=== PATIENT | male | born 1970 | race Caucasian/White ===

== ENCOUNTER 2016-06-10 10:26 | Inpatient (IN) | payer OTHER ==
[2016-06-10 10:45] VITALS: BMI 28.0
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
[2016-06-10] MEDS ORDERED: diphenhydrAMINE HCL 50 MG CAPSULE PO PRN (13:08)
[2016-06-10] MEDS ORDERED: LOPERAMIDE HCL 2 MG CAPSULE PO PRN (13:08)
[2016-06-10] MEDS ORDERED: ACETAMINOPHEN 325 MG TABLET (FP) PO PRN (13:08)
[2016-06-10] MEDS ORDERED: MENTHOL/PHENOL 1 EACH UD MM PRN (13:08)
[2016-06-10] MEDS ORDERED: MAGNESIUM HYDROX 2400MG/30ML ORAL SUSPENSION 30 ML CUP PO PRN (13:08)
[2016-06-10] MEDS ORDERED: MAGNESIUM CITRATE 300 ML BOTTLE PO PRN (13:08)
[2016-06-10] MEDS ORDERED: guaiFENesin/D-METHORPHAN HB 10 ML UNIT-DOSE CUPS PO PRN (13:08)
[2016-06-10] MEDS ORDERED: P-EPHED 60MG/TRIPROLIDI 2.5MG TABLET PO PRN (13:08)
[2016-06-10] MEDS ORDERED: RANITIDINE HCL 150 MG TABLET (FP) PO PRN (13:13)
[2016-06-10] MEDS ORDERED: DOCUSATE SODIUM 100 MG CAPSULE (FP) PO PRN (13:13)
[2016-06-10] MEDS ORDERED: ALBUTEROL SO4 2.5/IPRATROPIUM 0.5 INH SOL 3 ML VIAL.NEB. NEB PRN (13:27)
[2016-06-10] MEDS ORDERED: diazePAM 5 MG TABLET PO ONE (14:02)
[2016-06-10] MEDS ORDERED: METHADONE HCL 10 MG TABLET (FOR DETOX USE ONLY) PO ONE ×2 (14:05→23:00)
[2016-06-10] MEDS: diazePAM 5 MG TABLET PO SCH ×2 (14:24→22:45)
[2016-06-10] MEDS: NICOTINE 21 MG/24 HOURS TOPICAL PATCH TD SCH (14:24)
--- NOTE | 2016-06-10 15:57 | EKG ---
Test Reason : Blood Pressure : / mmHG Vent. Rate : 066 BPM Atrial Rate : 066 BPM P-R Int : 146 ms QRS Dur : 086 ms QT Int : 430 ms P-R-T Axes : 039 017 014 degrees QTc Int : 450 ms NORMAL SINUS RHYTHM NORMAL ECG NO PREVIOUS ECGS AVAILABLE Confirmed by TIFFANY SANTOS MD ([id number]) on 06/10/2016 3:57:03 PM Referred By: Darrell Ventura Confirmed By:TIFFANY SANTOS MD
[2016-06-10 18:44] LABS: URINE APPEARANCE CLEAR; URINE BILIRUBIN NEGATIVE (NEGATIVE); URINE BLOOD NEGATIVE (NEGATIVE); URINE COLOR YELLOW; URINE GLUCOSE (UA) NEGATIVE (NEGATIVE); URINE KETONE NEGATIVE (NEGATIVE); URINE NITRITE NEGATIVE (NEGATIVE); URINE PROTEIN NEGATIVE (NEGATIVE); URINE UROBILINOGEN 2.0 E.U/dl E.U./dl (0.2-1.0)
[2016-06-10 18:47] LABS: URINE LEUK ESTERASE TRACE (NEGATIVE)
[2016-06-10 19:05] LABS: URINE MUCUS RARE; URINE RBC <1 /hpf (0-3); URINE WBC <1 /hpf (3-5)
[2016-06-10] MEDS: ALBUTEROL SO4 2.5/IPRATROPIUM 0.5 INH SOL 3 ML VIAL.NEB. NEB SCH ×2 (20:14→22:47)
[2016-06-10] MEDS: diazePAM 5 MG TABLET PO PRN (20:17)
[2016-06-10] MEDS: MAG HYDROX/AL HYDROX/SIMETH 30 ML UNIT-DOSE CUP PO PRN (20:18)
[2016-06-10] MEDS: NICOTINE POLACRILEX 4 MG GUM BUC PRN (21:14)
[2016-06-10] MEDS: THIAMINE HCL 100 MG TABLET (FP) PO SCH (22:45)
[2016-06-10] MEDS: RANITIDINE HCL 150 MG TABLET (FP) PO SCH (22:45)
[2016-06-10] MEDS: DOCUSATE SODIUM 100 MG CAPSULE (FP) PO SCH (22:46)
[2016-06-10] MEDS: MONTELUKAST NA 10 MG TABLET PO SCH (22:46)
[2016-06-11] MEDS ORDERED: METHADONE HCL 10 MG TABLET ONE (05:28)
[2016-06-11] MEDS ORDERED: METHADONE HCL 40 MG DISPERSABLE TABLET ONE (05:29)
[2016-06-11] MEDS: METHADONE 80 MG, METHADONE 10 MG PO SCH (05:51)
[2016-06-11] MEDS: LEVOFLOXACIN 500 MG TABLET (FP) PO SCH (05:52)
[2016-06-11] MEDS: diazePAM 5 MG TABLET PO SCH ×3 (05:52→22:46)
[2016-06-11] MEDS: NICOTINE POLACRILEX 4 MG GUM BUC PRN ×2 (05:55→10:46)
[2016-06-11] MEDS ORDERED: LEVOFLOXACIN 500 MG TABLET (FP) PO SCH (06:00)
[2016-06-11] MEDS ORDERED: METHADONE HCL 10 MG TABLET PO SCH (06:00)
[2016-06-11 09:54] LABS: MCH 28.4 pg (25.7-33.7); MCHC 31.9 g/dl (32.0-35.9); MEAN CELL VOLUME 89.2 fl (80-96); MEAN PLT VOLUME 9.7 fl (7.5-11.1); PLATELET COUNT 181 K/MM3 (134-434); RDW 13.1 % (11.9-15.9); WHITE BLOOD COUNT 10.2 K/mm3 (4.0-10.0)
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
[2016-06-11] MEDS ORDERED: METHADONE HCL 10 MG TABLET (FOR DETOX USE ONLY) PO SCH (10:00)
[2016-06-11 10:21] LABS: ALBUMIN 3.9 g/dl (3.4-5.0); ANION GAP 9 (8-16); CALCIUM 8.7 mg/dL (8.5-10.1); CO2 28 mmol/L (21-32); CREATININE 0.7 mg/dL (0.7-1.3); GLUCOSE,RANDOM 92 mg/dL (74-106); SGOT/AST 31 U/L (15-37); SGPT/ALT 31 U/L (12-78)
[2016-06-11 10:22] LABS: ALK PHOS 105 U/L (45-117); BILIRUBIN,TOTAL 0.5 mg/dL (0.2-1.0); TOT PROT 7.8 g/dl (6.4-8.2)
[2016-06-11] MEDS: DOCUSATE SODIUM 100 MG CAPSULE (FP) PO SCH ×2 (10:45→22:46)
[2016-06-11] MEDS: PRENATAL VITAMINS W/ FOLIC ACID TABLET (FP) PO SCH (10:45)
[2016-06-11] MEDS: RANITIDINE HCL 150 MG TABLET (FP) PO SCH ×2 (10:45→22:46)
[2016-06-11] MEDS: NICOTINE 21 MG/24 HOURS TOPICAL PATCH TD SCH (10:46)
[2016-06-11] MEDS: ALBUTEROL SO4 2.5/IPRATROPIUM 0.5 INH SOL 3 ML VIAL.NEB. NEB SCH ×3 (10:46→22:48)
[2016-06-11] MEDS: SOFOSBUVIR PO SCH (10:46)
[2016-06-11] MEDS: [UNRECOGNIZED DRUG - OTHER] PO SCH (10:46)
[2016-06-11] MEDS: ALBUTEROL SO4 6.7 GM HFA INHALER IH PRN ×3 (11:10→21:39)
[2016-06-11] MEDS: MAG HYDROX/AL HYDROX/SIMETH 30 ML UNIT-DOSE CUP PO PRN (11:11)
--- NOTE | 2016-06-11 12:09 | PN ---
[facility] CIWA - CIWA Score Nausea/Vomitin-No Nausea/No Vomiting Muscle Tremors: 4-Moderate,w/Arms Extend Anxiety: 4-Mod. Anxious/Guarded Agitation: 4-Moderately Restless Paroxysmal Sweats: 1-Minimal Palms Moist Orientation: 0-Oriented Tacttile Disturbances: 3-Moderate Itch/Numb/Burn Auditory Disturbances: 0-None Visual Disturbances: 0-None Headache: 0-None Present CIWA-Ar Total Score: 16 BHS Progress Note (SOAP) Subjective: ANXIETY,IRRITABILITY,TREMORS,SWEATS. Objective: 06/11/16 12:08 Vital Signs Temperature 97.7 F 06/11/16 09:01 Pulse Rate 67 06/11/16 09:01 Respiratory Rate 18 06/11/16 09:01 Blood Pressure 119/77 06/11/16 09:01 O2 Sat by Pulse Oximetry (%) Laboratory Last Values WBC 10.2 K/mm3 (4.0-10.0) H 06/11/16 06:20 RBC 4.37 M/mm3 (4.00-5.60) 06/11/16 06:20 Hgb 12.4 GM/dL (11.7-16.9) 06/11/16 06:20 Hct 39.0 % (35.4-49) 06/11/16 06:20 MCV 89.2 fl (80-96) 06/11/16 06:20 MCHC 31.9 g/dl (32.0-35.9) L 06/11/16 06:20 RDW 13.1 % (11.9-15.9) 06/11/16 06:20 Plt Count 181 K/MM3 (134-434) 06/11/16 06:20 MPV 9.7 fl (7.5-11.1) 06/11/16 06:20 Sodium 142 mmol/L (136-145) 06/11/16 06:20 Potassium 3.8 mmol/L (3.5-5.1) 06/11/16 06:20 Chloride 105 mmol/L (98-107) 06/11/16 06:20 Carbon Dioxide 28 mmol/L (21-32) 06/11/16 06:20 Anion Gap 9 (8-16) 06/11/16 06:20 BUN 9 mg/dL (7-18) 06/11/16 06:20 Creatinine 0.7 mg/dL (0.7-1.3) 06/11/16 06:20 Creat Clearance w eGFR > 60 (>60) 06/11/16 06:20 Random Glucose 92 mg/dL (74-106) 06/11/16 06:20 Calcium 8.7 mg/dL (8.5-10.1) 06/11/16 06:20 Total Bilirubin 0.5 mg/dL (0.2-1.0) 06/11/16 06:20 AST 31 U/L (15-37) 06/11/16 06:20 ALT 31 U/L (12-78) 06/11/16 06:20 Alkaline Phosphatase 105 U/L (45-117) 06/11/16 06:20 Total Protein 7.8 g/dl (6.4-8.2) 06/11/16 06:20 Albumin 3.9 g/dl (3.4-5.0) 06/11/16 06:20 Urine Color Yellow 06/10/16 13:00 Urine Appearance Clear 06/10/16 13:00 Urine pH 6.0 (5.0-8.0) 06/10/16 13:00 Ur Specific [place] 1.018 (1.001-1.035) 06/10/16 13:00 Urine Protein Negative (NEGATIVE) 06/10/16 13:00 Urine Glucose (UA) Negative (NEGATIVE) 06/10/16 13:00 Urine Ketones Negative (NEGATIVE) 06/10/16 13:00 Urine Blood Negative (NEGATIVE) 06/10/16 13:00 Urine Nitrite Negative (NEGATIVE) 06/10/16 13:00 Urine Bilirubin Negative (NEGATIVE) 06/10/16 13:00 Urine Urobilinogen 2.0 e.u/dl E.U./dl (0.2-1.0) 06/10/16 13:00 Ur Leukocyte Esterase Trace (NEGATIVE) H 06/10/16 13:00 Urine RBC <1 /hpf (0-3) 06/10/16 13:00 Urine WBC <1 /hpf (3-5) 06/10/16 13:00 Ur Epithelial Cells Rare /hpf (FEW) 06/10/16 13:00 Urine Mucus Rare 06/10/16 13:00 RPR Titer Nonreactive (NONREACTIVE) 06/11/16 06:20 LAB NOTED Assessment: 06/11/16 12:09 WITHDRAWAL SX Plan: CONTINUE DETOX REPEAT UA TODAY
[2016-06-11 15:23] LABS: URINE APPEARANCE CLEAR; URINE BILIRUBIN NEGATIVE (NEGATIVE); URINE BLOOD NEGATIVE (NEGATIVE); URINE COLOR LTYELLOW; URINE GLUCOSE (UA) NEGATIVE (NEGATIVE); URINE KETONE NEGATIVE (NEGATIVE); URINE LEUK ESTERASE NEGATIVE (NEGATIVE); URINE NITRITE NEGATIVE (NEGATIVE); URINE PROTEIN NEGATIVE (NEGATIVE); URINE UROBILINOGEN NEGATIVE E.U./dl (0.2-1.0)
[2016-06-11 15:33] LABS: SICKLE CELL SCREEN NEGATIVE (NEGATIVE)
[2016-06-11] MEDS: diazePAM 5 MG TABLET PO PRN (17:34)
[2016-06-11] MEDS: IBUPROFEN 400 MG TABLET (FP) PO PRN (20:11)
[2016-06-11] MEDS: THIAMINE HCL 100 MG TABLET (FP) PO SCH (22:45)
[2016-06-11] MEDS: MONTELUKAST NA 10 MG TABLET PO SCH (22:46)
[2016-06-11] MEDS: QUEtiapine FUMARATE 100 MG TABLET (FP) PO SCH (22:46)
[2016-06-12] MEDS ORDERED: METHADONE HCL 10 MG TABLET ONE (03:59)
[2016-06-12] MEDS ORDERED: METHADONE HCL 40 MG DISPERSABLE TABLET ONE (03:59)
[2016-06-12] MEDS: LEVOFLOXACIN 500 MG TABLET (FP) PO SCH (06:19)
[2016-06-12] MEDS: METHADONE 80 MG, METHADONE 10 MG PO SCH (06:19)
[2016-06-12] MEDS: diazePAM 5 MG TABLET PO PRN ×2 (06:23→18:03)
[2016-06-12] MEDS: NICOTINE POLACRILEX 4 MG GUM BUC PRN (09:18)
--- NOTE | 2016-06-12 09:57 | PN ---
[facility] CIWA - CIWA Score Nausea/Vomitin-No Nausea/No Vomiting Muscle Tremors: 4-Moderate,w/Arms Extend Anxiety: 4-Mod. Anxious/Guarded Agitation: 4-Moderately Restless Paroxysmal Sweats: 3 Orientation: 0-Oriented Tacttile Disturbances: 0-None Auditory Disturbances: 0-None Visual Disturbances: 0-None Headache: 0-None Present CIWA-Ar Total Score: 15 BHS Progress Note (SOAP) Subjective: Anxiety,tremors,sweating,interrupted sleep,restless Objective: 06/12/16 09:56 Vital Signs - 8 hr 06/12/16 06/12/16 06/12/16 04:00 06:44 09:30 Temperature 97.5 F L 97.2 F L Pulse Rate 53 L 74 Respiratory 18 18 18 Rate Blood Pressure 114/82 134/79 Laboratory Tests 06/10/16 06/11/16 06/11/16 13:00 06:20 06:20 WBC 10.2 H RBC 4.37 Hgb 12.4 Hct 39.0 MCV 89.2 MCHC 31.9 L RDW 13.1 Plt Count 181 MPV 9.7 Sickle Cell Screen Negative Sodium 142 Potassium 3.8 Chloride 105 Carbon Dioxide 28 Anion Gap 9 BUN 9 Creatinine 0.7 Creat Clearance w eGFR > 60 Random Glucose 92 Calcium 8.7 Total Bilirubin 0.5 AST 31 ALT 31 Alkaline Phosphatase 105 Total Protein 7.8 Albumin 3.9 Urine Color Yellow Urine Appearance Clear Urine pH 6.0 Ur Specific [place] 1.018 Urine Protein Negative Urine Glucose (UA) Negative Urine Ketones Negative Urine Blood Negative Urine Nitrite Negative Urine Bilirubin Negative Urine Urobilinogen 2.0 e.u/dl Ur Leukocyte Esterase Trace H Urine RBC <1 Urine WBC <1 Ur Epithelial Cells Rare Urine Mucus Rare RPR Titer 06/11/16 06/11/16 06:20 10:30 WBC RBC Hgb Hct MCV MCHC RDW Plt Count MPV Sickle Cell Screen Sodium Potassium Chloride Carbon Dioxide Anion Gap BUN Creatinine Creat Clearance w eGFR Random Glucose Calcium Total Bilirubin AST ALT Alkaline Phosphatase Total Protein Albumin Urine Color Ltyellow Urine Appearance Clear Urine pH 5.0 Ur Specific [place] 1.016 Urine Protein Negative Urine Glucose (UA) Negative Urine Ketones Negative Urine Blood Negative Urine Nitrite Negative Urine Bilirubin Negative Urine Urobilinogen Negative Ur Leukocyte Esterase Negative Urine RBC Urine WBC Ur Epithelial Cells Urine Mucus RPR Titer Nonreactive labs noted, Assessment: 06/12/16 09:57 Withdrawal sx. Plan: Continue detox
[2016-06-12] MEDS ORDERED: METHADONE HCL 5 MG TABLET (FOR DETOX USE ONLY) PO SCH (10:00)
[2016-06-12] MEDS: PRENATAL VITAMINS W/ FOLIC ACID TABLET (FP) PO SCH (10:53)
[2016-06-12] MEDS: diazePAM 5 MG TABLET PO SCH ×2 (10:53→22:00)
[2016-06-12] MEDS: SOFOSBUVIR PO SCH (10:53)
[2016-06-12] MEDS: RANITIDINE HCL 150 MG TABLET (FP) PO SCH ×2 (10:53→22:22)
[2016-06-12] MEDS: DOCUSATE SODIUM 100 MG CAPSULE (FP) PO SCH ×2 (10:53→22:22)
[2016-06-12] MEDS: PARoxetine HCL 10 MG TABLET (FP) PO SCH (10:53)
[2016-06-12] MEDS: [UNRECOGNIZED DRUG - OTHER] PO SCH (10:54)
[2016-06-12] MEDS: ALBUTEROL SO4 2.5/IPRATROPIUM 0.5 INH SOL 3 ML VIAL.NEB. NEB SCH ×4 (10:54→22:20)
[2016-06-12] MEDS: NICOTINE 21 MG/24 HOURS TOPICAL PATCH TD SCH (10:55)
[2016-06-12] MEDS: ALBUTEROL SO4 6.7 GM HFA INHALER IH PRN (18:04)
[2016-06-12] MEDS: THIAMINE HCL 100 MG TABLET (FP) PO SCH (22:21)
[2016-06-12] MEDS: QUEtiapine FUMARATE 100 MG TABLET (FP) PO SCH (22:22)
[2016-06-12] MEDS: MONTELUKAST NA 10 MG TABLET PO SCH (22:22)
[2016-06-13] MEDS ORDERED: METHADONE HCL 10 MG TABLET ONE (03:03)
[2016-06-13] MEDS ORDERED: METHADONE HCL 40 MG DISPERSABLE TABLET ONE (03:04)
[2016-06-13] MEDS: METHADONE 80 MG, METHADONE 10 MG PO SCH (06:12)
[2016-06-13] MEDS: diazePAM 5 MG TABLET PO PRN (06:16)
[2016-06-13] MEDS: SOFOSBUVIR PO SCH (10:46)
[2016-06-13] MEDS: PRENATAL VITAMINS W/ FOLIC ACID TABLET (FP) PO SCH (10:46)
[2016-06-13] MEDS: PARoxetine HCL 10 MG TABLET (FP) PO SCH (10:46)
[2016-06-13] MEDS: diazePAM 5 MG TABLET PO SCH ×2 (10:46→22:40)
[2016-06-13] MEDS: [UNRECOGNIZED DRUG - OTHER] PO SCH (10:46)
[2016-06-13] MEDS: RANITIDINE HCL 150 MG TABLET (FP) PO SCH ×2 (10:46→22:40)
[2016-06-13] MEDS: NICOTINE 21 MG/24 HOURS TOPICAL PATCH TD SCH (10:46)
[2016-06-13] MEDS: DOCUSATE SODIUM 100 MG CAPSULE (FP) PO SCH ×2 (10:46→22:40)
[2016-06-13 14:02] VITALS: TEMP 97.8
--- NOTE | 2016-06-13 15:03 | PN ---
S Progress Note (SOAP) Subjective: Tremors, Sweating, Nausea, Diarrhea, Back Ache. Objective: PT. A & O X 2 (DISORIENTED ABOUT DAY / DATE). PT. OBSERVED AMBULATING ON UNIT. 06/13/16 15:00 Vital Signs Temperature 97.8 F 06/13/16 14:01 Pulse Rate 82 06/13/16 14:01 Respiratory Rate 18 06/13/16 14:01 Blood Pressure 110/73 06/13/16 14:01 O2 Sat by Pulse Oximetry (%) Laboratory Last Values WBC 10.2 K/mm3 (4.0-10.0) H 06/11/16 06:20 RBC 4.37 M/mm3 (4.00-5.60) 06/11/16 06:20 Hgb 12.4 GM/dL (11.7-16.9) 06/11/16 06:20 Hct 39.0 % (35.4-49) 06/11/16 06:20 MCV 89.2 fl (80-96) 06/11/16 06:20 MCHC 31.9 g/dl (32.0-35.9) L 06/11/16 06:20 RDW 13.1 % (11.9-15.9) 06/11/16 06:20 Plt Count 181 K/MM3 (134-434) 06/11/16 06:20 MPV 9.7 fl (7.5-11.1) 06/11/16 06:20 Sickle Cell Screen Negative (NEGATIVE) 06/11/16 06:20 Sodium 142 mmol/L (136-145) 06/11/16 06:20 Potassium 3.8 mmol/L (3.5-5.1) 06/11/16 06:20 Chloride 105 mmol/L (98-107) 06/11/16 06:20 Carbon Dioxide 28 mmol/L (21-32) 06/11/16 06:20 Anion Gap 9 (8-16) 06/11/16 06:20 BUN 9 mg/dL (7-18) 06/11/16 06:20 Creatinine 0.7 mg/dL (0.7-1.3) 06/11/16 06:20 Creat Clearance w eGFR > 60 (>60) 06/11/16 06:20 Random Glucose 92 mg/dL (74-106) 06/11/16 06:20 Calcium 8.7 mg/dL (8.5-10.1) 06/11/16 06:20 Total Bilirubin 0.5 mg/dL (0.2-1.0) 06/11/16 06:20 AST 31 U/L (15-37) 06/11/16 06:20 ALT 31 U/L (12-78) 06/11/16 06:20 Alkaline Phosphatase 105 U/L (45-117) 06/11/16 06:20 Total Protein 7.8 g/dl (6.4-8.2) 06/11/16 06:20 Albumin 3.9 g/dl (3.4-5.0) 06/11/16 06:20 Urine Color Ltyellow 06/11/16 10:30 Urine Appearance Clear 06/11/16 10:30 Urine pH 5.0 (5.0-8.0) 06/11/16 10:30 Ur Specific [place] 1.016 (1.001-1.035) 06/11/16 10:30 Urine Protein Negative (NEGATIVE) 06/11/16 10:30 Urine Glucose (UA) Negative (NEGATIVE) 06/11/16 10:30 Urine Ketones Negative (NEGATIVE) 06/11/16 10:30 Urine Blood Negative (NEGATIVE) 06/11/16 10:30 Urine Nitrite Negative (NEGATIVE) 06/11/16 10:30 Urine Bilirubin Negative (NEGATIVE) 06/11/16 10:30 Urine Urobilinogen Negative E.U./dl (0.2-1.0) 06/11/16 10:30 Ur Leukocyte Esterase Negative (NEGATIVE) 06/11/16 10:30 Urine RBC <1 /hpf (0-3) 06/10/16 13:00 Urine WBC <1 /hpf (3-5) 06/10/16 13:00 Ur Epithelial Cells Rare /hpf (FEW) 06/10/16 13:00 Urine Mucus Rare 06/10/16 13:00 RPR Titer Nonreactive (NONREACTIVE) 06/11/16 06:20 LABS NOTED. Assessment: 06/13/16 15:01 WITHDRAWAL SYMPTOMS. Plan: CONTINUE DETOX. ADVISED PATIENT TO FOLLOW-UP WITH [facility] / REHAB MEDICAL PROVIDER AFTER DISCHARGE FROM DETOX FOR GENERAL MEDICAL ASSESSMENT AND FOR ANY ABNORMAL ADMISSION LAB VALUES.
[2016-06-13] MEDS: MAG HYDROX/AL HYDROX/SIMETH 30 ML UNIT-DOSE CUP PO PRN (21:17)
[2016-06-13 22:28] VITALS: BP 111/79; PULSE 74
[2016-06-13] MEDS: MONTELUKAST NA 10 MG TABLET PO SCH (22:40)
[2016-06-13] MEDS: QUEtiapine FUMARATE 100 MG TABLET (FP) PO SCH (22:40)
[2016-06-13] MEDS: THIAMINE HCL 100 MG TABLET (FP) PO SCH (22:43)
[2016-06-13] MEDS: ALBUTEROL SO4 2.5/IPRATROPIUM 0.5 INH SOL 3 ML VIAL.NEB. NEB SCH (22:43)
[2016-06-14] MEDS ORDERED: METHADONE HCL 10 MG TABLET ONE (04:40)
[2016-06-14] MEDS ORDERED: METHADONE HCL 40 MG DISPERSABLE TABLET ONE (04:41)
[2016-06-14] MEDS: METHADONE 80 MG, METHADONE 10 MG PO SCH (05:26)
[2016-06-14] MEDS: IBUPROFEN 400 MG TABLET (FP) PO PRN (05:28)
[2016-06-14] MEDS ORDERED: diazePAM 5 MG TABLET PO SCH (10:00)
[2016-06-14] MEDS ORDERED: METHADONE HCL 10 MG TABLET (FOR DETOX USE ONLY) PO SCH (10:00)
--- NOTE | 2016-06-14 16:00 | DS ---
[facility] Detox Discharge Summary Admission Date: 06/10/16 Discharge Date: 06/14/16 - History Present History: Alcohol Dependence, Cocaine Dependence, MMTP Additional Comments: ADVISED PATIENT TO FOLLOW-UP WITH [facility] / REHAB MEDICAL PROVIDER AFTER DISCHARGE FROM DETOX FOR GENERAL MEDICAL ASSESSMENT AND FOR ABNORMAL ADMISSION LAB VALUES. Pertinent Past History: Asthma,. Hep C, GERD, Depression. - Physical Exam Results Vital Signs: Vital Signs Temperature 97.8 F 06/13/16 22:27 Pulse Rate 74 06/13/16 22:27 Respiratory Rate 18 06/14/16 03:30 Blood Pressure 111/79 06/13/16 22:27 O2 Sat by Pulse Oximetry (%) Pertinent Admission Physical Exam Findings: WITHDRAWAL SYMPTOMS. Laboratory Last Values WBC 10.2 K/mm3 (4.0-10.0) H 06/11/16 06:20 RBC 4.37 M/mm3 (4.00-5.60) 06/11/16 06:20 Hgb 12.4 GM/dL (11.7-16.9) 06/11/16 06:20 Hct 39.0 % (35.4-49) 06/11/16 06:20 MCV 89.2 fl (80-96) 06/11/16 06:20 MCHC 31.9 g/dl (32.0-35.9) L 06/11/16 06:20 RDW 13.1 % (11.9-15.9) 06/11/16 06:20 Plt Count 181 K/MM3 (134-434) 06/11/16 06:20 MPV 9.7 fl (7.5-11.1) 06/11/16 06:20 Sickle Cell Screen Negative (NEGATIVE) 06/11/16 06:20 Sodium 142 mmol/L (136-145) 06/11/16 06:20 Potassium 3.8 mmol/L (3.5-5.1) 06/11/16 06:20 Chloride 105 mmol/L (98-107) 06/11/16 06:20 Carbon Dioxide 28 mmol/L (21-32) 06/11/16 06:20 Anion Gap 9 (8-16) 06/11/16 06:20 BUN 9 mg/dL (7-18) 06/11/16 06:20 Creatinine 0.7 mg/dL (0.7-1.3) 06/11/16 06:20 Creat Clearance w eGFR > 60 (>60) 06/11/16 06:20 Random Glucose 92 mg/dL (74-106) 06/11/16 06:20 Calcium 8.7 mg/dL (8.5-10.1) 06/11/16 06:20 Total Bilirubin 0.5 mg/dL (0.2-1.0) 06/11/16 06:20 AST 31 U/L (15-37) 06/11/16 06:20 ALT 31 U/L (12-78) 06/11/16 06:20 Alkaline Phosphatase 105 U/L (45-117) 06/11/16 06:20 Total Protein 7.8 g/dl (6.4-8.2) 06/11/16 06:20 Albumin 3.9 g/dl (3.4-5.0) 06/11/16 06:20 Urine Color Ltyellow 06/11/16 10:30 Urine Appearance Clear 06/11/16 10:30 Urine pH 5.0 (5.0-8.0) 06/11/16 10:30 Ur Specific [place] 1.016 (1.001-1.035) 06/11/16 10:30 Urine Protein Negative (NEGATIVE) 06/11/16 10:30 Urine Glucose (UA) Negative (NEGATIVE) 06/11/16 10:30 Urine Ketones Negative (NEGATIVE) 06/11/16 10:30 Urine Blood Negative (NEGATIVE) 06/11/16 10:30 Urine Nitrite Negative (NEGATIVE) 06/11/16 10:30 Urine Bilirubin Negative (NEGATIVE) 06/11/16 10:30 Urine Urobilinogen Negative E.U./dl (0.2-1.0) 06/11/16 10:30 Ur Leukocyte Esterase Negative (NEGATIVE) 06/11/16 10:30 Urine RBC <1 /hpf (0-3) 06/10/16 13:00 Urine WBC <1 /hpf (3-5) 06/10/16 13:00 Ur Epithelial Cells Rare /hpf (FEW) 06/10/16 13:00 Urine Mucus Rare 06/10/16 13:00 RPR Titer Nonreactive (NONREACTIVE) 06/11/16 06:20 LABS NOTED. - Treatment Hospital Course: Detox Protocol Followed, Detoxed Safely, Responded well, Discharged Condition Good Patient has Accepted a Rehab Referral to: NO - PATIENT TO ATTEND [facility]. - Medication Discharge Medications: Ambulatory Orders Albuterol Sulfate Inhaler - [Ventolin Hfa Inhaler -] 2 inh PO Q4H PRN 06/10/16 Daclatasvir Dihydrochloride [Daklinza] 60 mg PO DAILY 06/10/16 Docusate Sodium [Colace -] 100 mg PO BID PRN 06/10/16 Emtricitabine/Tenofovir [Truvada] 1 tab PO DAILY 06/10/16 Hydroxyzine HCl [Atarax -] 50 mg PO BID PRN 06/10/16 Levofloxacin [Levaquin -] 500 mg PO DAILY 06/10/16 Montelukast Na [Singulair -] 10 mg PO HS 06/10/16 Quetiapine Fumarate [Seroquel] 100 tab PO HS 06/10/16 Ranitidine HCl [Zantac] 300 mg PO DAILY PRN 06/10/16 Salmeterol/Fluticasone [Advair 500Mcg/50Mcg] 1 inh PO BID 06/10/16 Sofosbuvir [Sovaldi] 400 mg PO DAILY 06/10/16 Paroxetine HCl [Paxil -] 10 mg PO DAILY #30 tablet 06/11/16 Quetiapine Fumarate [Seroquel] 100 mg PO HS #30 tablet 06/11/16 - Diagnosis (1) Alcohol dependence with uncomplicated withdrawal Status: Acute (2) Cocaine dependence, uncomplicated Status: Acute (3) Nicotine dependence Status: Chronic Qualifiers: Nicotine product type: cigarettes Substance use status: uncomplicated Qualified Code(s): F17.210 - Nicotine dependence, cigarettes, uncomplicated (4) Opioid dependence on agonist therapy Status: Chronic (5) Substance induced mood disorder Status: Acute (6) History of hepatitis C virus infection Status: Chronic (7) Methadone maintenance therapy patient Status: Chronic - AMA Did Patient Leave Against Medical Advice: No
[2016-06-15] MEDS ORDERED: METHADONE HCL 5 MG TABLET (FOR DETOX USE ONLY) PO SCH (06:00)
== END 2016-06-14 06:13 | disposition home or self-care (01) | DRG 897 ==
LOC: YASAS 10:26 → Y3N 12:57
PROVIDERS: ADMIT Internal Medicine; ATTEND Internal Medicine
PROC: HZ2ZZZZ Detoxification Services for Substance Abuse Treatment (ICD-10-PCS; principal; 2016-06-14)
DX: F11.20 Opioid dependence, uncomplicated (principal); F10.230 Alcohol dependence with withdrawal, uncomplicated; F14.20 Cocaine dependence, uncomplicated; F17.210 Nicotine dependence, cigarettes, uncomplicated; F13.10 Sedative, hypnotic or anxiolytic abuse, uncomplicated; F15.10 Other stimulant abuse, uncomplicated; F19.24 Other psychoactive substance dependence with psychoactive substance-induced mood disorder; B18.2 Chronic viral hepatitis C
CPT/HCPCS: 36415; 80053; 81003; 81015; 85027; 85660; 86593; 93005; 93010; 94640

== ENCOUNTER 2016-08-12 12:46 | Inpatient (IN) | payer OTHER ==
[2016-08-12 15:08] VITALS: BMI 27.2
--- NOTE | 2016-08-12 15:55 | HP ---
CIWA Score - CIWA Score Nausea/Vomitin-No Nausea/No Vomiting Muscle Tremors: 4-Moderate,w/Arms Extend Anxiety: 3 Agitation: 4-Moderately Restless Paroxysmal Sweats: 3 Orientation: 0-Oriented Tacttile Disturbances: 0-None Auditory Disturbances: 0-None Visual Disturbances: 0-None Headache: 0-None Present CIWA-Ar Total Score: 14 Admission ROS [facility] - HPI Chief Complaint: I am here for detox and rehab. Allergies/Adverse Reactions: Allergies Allergy/AdvReac Type Severity Reaction Status Date / Time No Known Allergies Allergy Verified 08/12/16 15:11 History of Present Illness: pt is a 46yr old male with a history of xanax and alcohol dependence seeking detox for treatment. pt on a mmtp program received 90mg dose verified. Exam Limitations: No Limitations - Ebola screening Have you traveled outside of the country in the last 21 days: No Have you had contact with anyone from an Ebola affected area: No Have you been sick,other than usual withdrawal symptoms: No Do you have a fever: No - Review of Systems Constitutional: Chills, Diaphoresis, Loss of Appetite, Night Sweats, Changes in sleep EENT: reports: No Symptoms Reported Respiratory: reports: No Symptoms reported Cardiac: reports: No Symptoms Reported GI: reports: Constipated, Poor Appetite, Indigestion : reports: No Symptoms Reported Musculoskeletal: reports: No Symptoms Reported Integumentary: reports: Flushing, Sweating Neuro: reports: Tingling, Tremors Endocrine: reports: Excessive Sweating, Flushing, Intolerance to Cold, Intolerance to Heat Hematology: reports: No Symptoms Reported Psychiatric: reports: Judgement Intact, Orientated x3, Agitated, Anxious Other Systems: Reviewed and Negative Patient History - Patient Medical History Hx Anemia: No Hx Asthma: Yes Hx Chronic Obstructive Pulmonary Disease (COPD): No Hx Cancer: No Hx Cardiac Disorders: No Hx Congestive Heart Failure: No Hx Hypertension: No Hx Hypercholesterolemia: No Hx Pacemaker: No HX Cerebrovascular Accident: No Hx Seizures: No Hx Dementia: No Hx Diabetes: No Hx Gastrointestinal Disorders: Yes (acid reflux) Hx Liver Disease: No Hx Genitourinary Disorders: No Hx Sexually Transmitted Disorders: No Hx Renal Disease (ESRD): No Hx Thyroid Disease: No Hx Human Immunodeficiency Virus (HIV): No (NEGATIVE HX) Hx Hepatitis C: Yes (ON CURRENT TREATMENT WITH SOVALDI AND DAKLINZA DAILY ) Hx Depression: Yes Hx Suicide Attempt: Yes (cut left wrist in 2010) Hx Bipolar Disorder: Yes Hx Schizophrenia: No - Patient Surgical History Past Surgical History: Yes Hx Neurologic Surgery: No Hx Cataract Extraction: No Hx Cardiac Surgery: No Hx Lung Surgery: No Hx Breast Surgery: No Hx Breast Biopsy: No Hx Abdominal Surgery: No Hx Appendectomy: No Hx Cholecystectomy: No Hx Genitourinary Surgery: No Hx Section: No Hx Orthopedic Surgery: Yes (right hip replacement) Anesthesia Reaction: No - PPD History Previous Implant?: No Documented Results: Negative w/proof Implanted On Prior [facility] Admission?: Yes Date: 06/12/16 Results: 0 mm PPD to be Administered?: No - Smoking Cessation Smoking history: Current every day smoker Have you smoked in the past 12 months: Yes Aproximately how many cigarettes per day: 10 Hx Chewing Tobacco Use: No Initiated information on smoking cessation: Yes 'Breaking Loose' booklet given: 08/12/16 - Substance & Tx. History Hx Alcohol Use: Yes Hx Substance Use: Yes Substance Use Type: Alcohol, Cocaine, Tranquilizers Hx Substance Use Treatment: Yes - Substances Abused Cocaine Route: Injection Frequency: 1-2 times per week Amount used: $60 Age of first use: 23 Date of Last Use: 08/05/16 Alcohol-beer Route: Oral Frequency: Daily Amount used: 2-6 pks. Age of first use: 24 Date of Last Use: 08/12/16 Xanax Route: Oral Frequency: Daily Amount used: 8-10 mg. Age of first use: 41 Date of Last Use: 08/11/16 Family Disease History - Family Disease History Family History: Denies Admission Physical Exam S - Vital Signs Vital Signs: Vital Signs - 24 hr 08/12/16 15:05 Temperature 96.2 F L Pulse Rate 64 Respiratory 20 Rate Blood Pressure 127/54 - Physical General Appearance: Yes: Appropriately Dressed, Moderate Distress, Tremorous, Irritable, Sweating, Anxious HEENTM: Yes: Hearing grossly Normal Respiratory: Yes: Lungs Clear, Normal Breath Sounds, No Respiratory Distress Neck: Yes: No masses,lesions,Nodules Breast: Yes: Within Normal Limits Cardiology: Yes: Regular Rhythm, Regular Rate, S1, S2 Abdominal: Yes: Normal Bowel Sounds, Non Tender, Soft Genitourinary: Yes: Within Normal Limits Back: Yes: Normal Inspection Musculoskeletal: Yes: full range of Motion Extremities: Yes: Normal Capillary Refill, Non-Tender, Tremors Neurological: Yes: Fully Oriented, Alert, Normal Response Integumentary: Yes: Normal Color, Diaphoresis, Track Villanueva Lymphatic: Yes: Within Normal Limits - Diagnostic (1) Alcohol dependence with uncomplicated withdrawal Current Visit: Yes Status: Chronic (2) Cocaine dependence, uncomplicated Current Visit: Yes Status: Chronic (3) History of hepatitis C virus infection Current Visit: No Status: Chronic (4) Methadone maintenance therapy patient Current Visit: Yes Status: Chronic Comment: pt last dose at his program was 08/08/16 but was taking 100mg from his friend from to 08/12/16 therefore he had no methadone withdrawals. pt will receive 90mg tomorrow. (5) Nicotine dependence Current Visit: Yes Status: Chronic Qualifiers: Nicotine product type: cigarettes Substance use status: uncomplicated Qualified Code(s): F17.210 - Nicotine dependence, cigarettes, uncomplicated (6) Sedative, hypnotic or anxiolytic dependence with withdrawal, uncomplicated Current Visit: Yes Status: Chronic Cleared for Admission [facility] - Detox or Rehab [facility] Level of Care: Medically Managed Detox Regimen/Protocol: Valium [facility] Breath Alcohol Content Breath Alcohol Content: 0.022 Urine Drug Screen - Results Drug Screen Negative: No Urine Drug Screen Results: BZO-Benzodiazepines, MTD-Methadone
[2016-08-12] MEDS ORDERED: LOPERAMIDE HCL 2 MG CAPSULE PO PRN (15:56)
[2016-08-12] MEDS ORDERED: MAG HYDROX/AL HYDROX/SIMETH 30 ML UNIT-DOSE CUP PO PRN (15:56)
[2016-08-12] MEDS ORDERED: hydrOXYzine PAMOATE 50 MG CAPSULE (FP) PO PRN (15:56)
[2016-08-12] MEDS ORDERED: IBUPROFEN 400 MG TABLET (FP) PO PRN (15:56)
[2016-08-12] MEDS ORDERED: MAGNESIUM HYDROX 2400MG/30ML ORAL SUSPENSION 30 ML CUP PO PRN (15:56)
[2016-08-12] MEDS ORDERED: ACETAMINOPHEN 325 MG TABLET (FP) PO PRN (15:56)
[2016-08-12] MEDS ORDERED: MAGNESIUM CITRATE 300 ML BOTTLE PO PRN (15:56)
[2016-08-12] MEDS ORDERED: MENTHOL/PHENOL 1 EACH UD MM PRN (15:56)
[2016-08-12] MEDS ORDERED: P-EPHED 60MG/TRIPROLIDI 2.5MG TABLET PO PRN (15:56)
[2016-08-12] MEDS ORDERED: diphenhydrAMINE HCL 50 MG CAPSULE PO PRN (15:56)
[2016-08-12] MEDS ORDERED: guaiFENesin/D-METHORPHAN HB 10 ML UNIT-DOSE CUPS PO PRN (15:56)
[2016-08-12] MEDS ORDERED: ALBUTEROL SO4 6.7 GM HFA INHALER IH PRN (15:57)
[2016-08-12] MEDS ORDERED: diazePAM 5 MG TABLET PO ONE (18:15)
[2016-08-12] MEDS: DOCUSATE SODIUM 100 MG CAPSULE (FP) PO SCH (22:24)
[2016-08-12] MEDS: diazePAM 5 MG TABLET PO SCH (22:25)
[2016-08-12] MEDS: THIAMINE HCL 100 MG TABLET (FP) PO SCH (22:25)
[2016-08-12] MEDS: MONTELUKAST NA 10 MG TABLET PO SCH (22:25)
[2016-08-12] MEDS: RANITIDINE HCL 150 MG TABLET (FP) PO SCH (22:25)
[2016-08-12] MEDS: NICOTINE POLACRILEX 4 MG GUM BC PRN (22:26)
[2016-08-12] MEDS: BUDESONIDE/FORMETEROL FUMARATE 80/4.5 mcg INHALER IH SCH (22:40)
[2016-08-12 23:11] LABS: URINE APPEARANCE CLEAR; URINE BILIRUBIN NEGATIVE (NEGATIVE); URINE BLOOD NEGATIVE (NEGATIVE); URINE COLOR LTYELLOW; URINE GLUCOSE (UA) NEGATIVE (NEGATIVE); URINE KETONE NEGATIVE (NEGATIVE); URINE LEUK ESTERASE NEGATIVE (NEGATIVE); URINE NITRITE NEGATIVE (NEGATIVE); URINE PROTEIN NEGATIVE (NEGATIVE); URINE UROBILINOGEN NEGATIVE E.U./dl (0.2-1.0)
[2016-08-13] MEDS ORDERED: METHADONE HCL 40 MG DISPERSABLE TABLET ONE (04:19)
[2016-08-13] MEDS ORDERED: METHADONE HCL 10 MG TABLET ONE (04:19)
[2016-08-13] MEDS: diazePAM 5 MG TABLET PO SCH ×3 (05:25→22:31)
[2016-08-13] MEDS: METHADONE 80 MG, METHADONE 10 MG PO SCH (05:25)
[2016-08-13] MEDS ORDERED: METHADONE HCL 10 MG TABLET PO SCH (06:00)
[2016-08-13] MEDS: NICOTINE POLACRILEX 4 MG GUM BC PRN ×4 (06:43→20:17)
[2016-08-13 10:10] LABS: MCH 29.4 pg (25.7-33.7); MCHC 32.1 g/dl (32.0-35.9); MEAN CELL VOLUME 91.7 fl (80-96); MEAN PLT VOLUME 10.5 fl (7.5-11.1); PLATELET COUNT 185 K/MM3 (134-434); RDW 13.2 % (11.9-15.9); WHITE BLOOD COUNT 7.3 K/mm3 (4.0-10.0)
--- NOTE | 2016-08-13 10:10 | CONSULT ---
[facility] Psychiatric Consult - Data Date of interview: 08/13/16 Admission source: [facility] Identifying data: This is 46 years old male with psychiatric hospitalization history intoxicated with : Alcohol, Cocaine, Methadone, Xanax, Nicotine Substance Abuse History: - Smoking Cessation. Smoking history: Current every day smoker. Have you smoked in the past 12 months: Yes. Aproximately how many cigarettes per day: 10. Hx Chewing Tobacco Use: No. Initiated information on smoking cessation: Yes. 'Breaking Loose' booklet given: 08/12/16. - Substance & Tx. History. Hx Alcohol Use: Yes. Hx Substance Use: Yes. Substance Use Type : Alcohol, Cocaine, Tranquilizers. Hx Substance Use Treatment: Yes. - Substances Abused. Cocaine. Route: Injection. Frequency: 1-2 times per week. Amount used: $60. Age of first use: 23. Date of Last Use: 08/05/16. * * Alcohol-beer. Route: Oral. Frequency: Daily. Amount used: 2-6 pks. Age of first use: 24. Date of Last Use: 08/12/16. Xanax. Route: Oral. Frequency : Daily. Amount used: 8-10 mg. Age of first use: 41. Date of Last Use: Medical History: HepC+, MMTP history Psychiatric History: Patient reports history of depression and anxiety, reprots psychiatric admission on 2015 at [facility] , reports tyaking prior to admission: Seroquel 100mg po qhs. Paxil 10mg poqd Physical/Sexual Abuse/Trauma History: Unclear Additional Comment: Seroquel 100mg po qhs. Paxil 10mg poqd Mental Status Exam - Mental Status Exam Alert and Oriented to: Person Cognitive Function: Fair Patient Appearance: Unkempt Mood: Sad Affect: Flat Patient Behavior: Sedated Speech Pattern: Delayed Voice Loudness: Mildly Soft/Quiet Thought Process: Circumstantial Thought Disorder: Being Controlled Hallucinations: Denies Suicidal Ideation: Denies Homicidal Ideation: Denies Insight/Judgement: Fair Sleep: Difficulty falling asleep Appetite: Weight loss Muscle strength/Tone: Mild Hypotonicity Gait/Station: Shuffling Additional Comments: Seroquel 100mg po qhs. Paxil 10mg poqd Psychiatric Findings - Problem List ([place] 1, 2,3) (1) Alcohol dependence with uncomplicated withdrawal Current Visit: Yes Status: Chronic (2) Cocaine dependence, uncomplicated Current Visit: Yes Status: Chronic (3) Methadone maintenance therapy patient Current Visit: Yes Status: Chronic Comment: pt last dose at his program was 08/08/16 but was taking 100mg from his friend from to 08/12/16 therefore he had no methadone withdrawals. pt will receive 90mg tomorrow. (4) Nicotine dependence Current Visit: Yes Status: Chronic Qualifiers: Nicotine product type: cigarettes Substance use status: uncomplicated Qualified Code(s): F17.210 - Nicotine dependence, cigarettes, uncomplicated (5) Sedative, hypnotic or anxiolytic dependence with withdrawal, uncomplicated Current Visit: Yes Status: Chronic (6) Benzodiazepine abuse Current Visit: No Status: Acute (7) Substance induced mood disorder Current Visit: No Status: Acute (8) Opioid dependence on agonist therapy Current Visit: No Status: Chronic - Initial Treatment Plan Initial Treatment Plan: Seroquel 100mg po qhs. Paxil 10mg poqd
[2016-08-13] MEDS: RANITIDINE HCL 150 MG TABLET (FP) PO SCH ×2 (10:26→22:31)
[2016-08-13] MEDS: BUDESONIDE/FORMETEROL FUMARATE 80/4.5 mcg INHALER IH SCH ×2 (10:26→22:33)
[2016-08-13] MEDS: PRENATAL VITAMINS W/ FOLIC ACID TABLET (FP) PO SCH (10:26)
[2016-08-13] MEDS: DOCUSATE SODIUM 100 MG CAPSULE (FP) PO SCH ×2 (10:26→22:31)
[2016-08-13] MEDS: NICOTINE 21 MG/24 HOURS TOPICAL PATCH TD SCH (10:27)
[2016-08-13] MEDS: PARoxetine HCL 10 MG TABLET (FP) PO SCH (10:27)
[2016-08-13] MEDS: diazePAM 5 MG TABLET PO PRN ×2 (10:29→20:17)
[2016-08-13 10:38] LABS: ALBUMIN 3.8 g/dl (3.4-5.0); ALK PHOS 95 U/L (45-117); ANION GAP 8 (8-16); BILIRUBIN,TOTAL 0.4 mg/dL (0.2-1.0); CALCIUM 9.3 mg/dL (8.5-10.1); CO2 28 mmol/L (21-32); COCKROFT - GAULT 143.63; CREATININE 0.8 mg/dL (0.7-1.3); GLUCOSE,RANDOM 108 mg/dL (74-106); SGOT/AST 39 U/L (15-37); SGPT/ALT 47 U/L (12-78); TOT PROT 7.5 g/dl (6.4-8.2)
--- NOTE | 2016-08-13 11:21 | PN ---
S CIWA - CIWA Score Nausea/Vomitin-No Nausea/No Vomiting Muscle Tremors: 3 Anxiety: 3 Agitation: 3 Paroxysmal Sweats: 3 Orientation: 0-Oriented Tacttile Disturbances: 0-None Auditory Disturbances: 0-None Visual Disturbances: 0-None Headache: 0-None Present CIWA-Ar Total Score: 12 BHS Progress Note (SOAP) Subjective: shakes sweats interrupted sleep anxious Objective: 08/13/16 11:20 Vital Signs Temperature 98.1 F 08/13/16 10:00 Pulse Rate 64 08/13/16 10:00 Respiratory Rate 18 08/13/16 10:00 Blood Pressure 124/72 08/13/16 10:00 O2 Sat by Pulse Oximetry (%) Laboratory Tests 08/12/16 08/13/16 08/13/16 22:01 06:00 06:00 WBC 7.3 RBC 4.14 Hgb 12.2 Hct 37.9 MCV 91.7 MCHC 32.1 RDW 13.2 Plt Count 185 MPV 10.5 Sodium 138 Potassium 4.2 Chloride 102 Carbon Dioxide 28 Anion Gap 8 BUN 9 Creatinine 0.8 Creat Clearance w eGFR > 60 Random Glucose 108 H Calcium 9.3 Total Bilirubin 0.4 AST 39 H D ALT 47 D Alkaline Phosphatase 95 Total Protein 7.5 Albumin 3.8 Urine Color Ltyellow Urine Appearance Clear Urine pH 7.0 D Urine Protein Negative Urine Glucose (UA) Negative Urine Ketones Negative Urine Blood Negative Urine Nitrite Negative Urine Bilirubin Negative Urine Urobilinogen Negative Ur Leukocyte Esterase Negative awake/alert ambulating no acute distress Assessment: 08/13/16 11:21 withdrawal sx Plan: continue detox increase fluids
--- NOTE | 2016-08-13 11:59 | EKG ---
Test Reason : Blood Pressure : / mmHG Vent. Rate : 056 BPM Atrial Rate : 056 BPM P-R Int : 146 ms QRS Dur : 088 ms QT Int : 440 ms P-R-T Axes : 000 166 170 degrees QTc Int : 424 ms SINUS BRADYCARDIA RIGHT AXIS DEVIATION ABNORMAL ECG WHEN COMPARED WITH ECG OF 10-JUN-2016 13:31, QRS AXIS SHIFTED RIGHT ST NO LONGER ELEVATED IN LATERAL LEADS Confirmed by LINDEN HARRIS, TRACEY ([id number]) on 08/13/2016 11:58:26 AM Referred By: Confirmed By:TRACEY CHEATHAM MD
--- NOTE | 2016-08-13 12:00 | EKG ---
Test Reason : Blood Pressure : / mmHG Vent. Rate : 050 BPM Atrial Rate : 050 BPM P-R Int : 164 ms QRS Dur : 090 ms QT Int : 450 ms P-R-T Axes : 046 011 003 degrees QTc Int : 410 ms SINUS BRADYCARDIA EARLY REPOLARIZATION OTHERWISE NORMAL ECG WHEN COMPARED WITH ECG OF 12-AUG-2016 17:06, QRS AXIS SHIFTED LEFT ST ELEVATION NOW PRESENT IN LATERAL LEADS T WAVE INVERSION NO LONGER EVIDENT IN LATERAL LEADS Confirmed by LINDEN HARRIS, TRACEY ([id number]) on 08/13/2016 11:59:56 AM Referred By: Confirmed By:TRACEY CHEATHAM MD
[2016-08-13] MEDS: THIAMINE HCL 100 MG TABLET (FP) PO SCH (22:31)
[2016-08-13] MEDS: MONTELUKAST NA 10 MG TABLET PO SCH (22:31)
[2016-08-13] MEDS: QUEtiapine FUMARATE 100 MG TABLET (FP) PO SCH (22:31)
[2016-08-14] MEDS ORDERED: METHADONE HCL 10 MG TABLET ONE (04:09)
[2016-08-14] MEDS ORDERED: METHADONE HCL 40 MG DISPERSABLE TABLET ONE (04:09)
[2016-08-14] MEDS: METHADONE 80 MG, METHADONE 10 MG PO SCH (06:10)
[2016-08-14] MEDS: diazePAM 5 MG TABLET PO PRN (06:12)
[2016-08-14] MEDS: NICOTINE POLACRILEX 4 MG GUM BC PRN ×4 (06:14→22:32)
[2016-08-14] MEDS: RANITIDINE HCL 150 MG TABLET (FP) PO SCH ×2 (10:33→22:31)
[2016-08-14] MEDS: BUDESONIDE/FORMETEROL FUMARATE 80/4.5 mcg INHALER IH SCH ×2 (10:33→22:31)
[2016-08-14] MEDS: diazePAM 5 MG TABLET PO SCH ×2 (10:33→22:31)
[2016-08-14] MEDS: PRENATAL VITAMINS W/ FOLIC ACID TABLET (FP) PO SCH (10:33)
[2016-08-14] MEDS: DOCUSATE SODIUM 100 MG CAPSULE (FP) PO SCH ×2 (10:34→22:30)
[2016-08-14] MEDS: NICOTINE 21 MG/24 HOURS TOPICAL PATCH TD SCH (10:34)
[2016-08-14] MEDS: PARoxetine HCL 10 MG TABLET (FP) PO SCH (10:36)
--- NOTE | 2016-08-14 11:12 | PN ---
[facility] CIWA - CIWA Score Nausea/Vomitin Muscle Tremors: 3 Anxiety: 3 Agitation: 2 Paroxysmal Sweats: 1-Minimal Palms Moist Orientation: 0-Oriented Tacttile Disturbances: 1-Very Mild Itch/Numbness Auditory Disturbances: 1-Very Mild Visual Disturbances: 1-Very Mild Sensitivity Headache: 2-Mild CIWA-Ar Total Score: 17 S Progress Note (SOAP) Subjective: ALERT,IRRITABLE,ANXIOUS,INTERRUPTED SLEEP,TREMOR Objective: 08/14/16 11:11 Vital Signs Temperature 97.9 F 08/14/16 09:49 Pulse Rate 63 08/14/16 09:49 Respiratory Rate 16 08/14/16 09:49 Blood Pressure 109/68 08/14/16 09:49 O2 Sat by Pulse Oximetry (%) 08/14/16 11:12 08/14/16 11:13 Laboratory Last Values WBC 7.3 K/mm3 (4.0-10.0) 08/13/16 06:00 RBC 4.14 M/mm3 (4.00-5.60) 08/13/16 06:00 Hgb 12.2 GM/dL (11.7-16.9) 08/13/16 06:00 Hct 37.9 % (35.4-49) 08/13/16 06:00 MCV 91.7 fl (80-96) 08/13/16 06:00 MCHC 32.1 g/dl (32.0-35.9) 08/13/16 06:00 RDW 13.2 % (11.9-15.9) 08/13/16 06:00 Plt Count 185 K/MM3 (134-434) 08/13/16 06:00 MPV 10.5 fl (7.5-11.1) 08/13/16 06:00 Sodium 138 mmol/L (136-145) 08/13/16 06:00 Potassium 4.2 mmol/L (3.5-5.1) 08/13/16 06:00 Chloride 102 mmol/L (98-107) 08/13/16 06:00 Carbon Dioxide 28 mmol/L (21-32) 08/13/16 06:00 Anion Gap 8 (8-16) 08/13/16 06:00 BUN 9 mg/dL (7-18) 08/13/16 06:00 Creatinine 0.8 mg/dL (0.7-1.3) 08/13/16 06:00 Creat Clearance w eGFR > 60 (>60) 08/13/16 06:00 Random Glucose 108 mg/dL (74-106) H 08/13/16 06:00 Calcium 9.3 mg/dL (8.5-10.1) 08/13/16 06:00 Total Bilirubin 0.4 mg/dL (0.2-1.0) 08/13/16 06:00 AST 39 U/L (15-37) H D 08/13/16 06:00 ALT 47 U/L (12-78) D 08/13/16 06:00 Alkaline Phosphatase 95 U/L (45-117) 08/13/16 06:00 Total Protein 7.5 g/dl (6.4-8.2) 08/13/16 06:00 Albumin 3.8 g/dl (3.4-5.0) 08/13/16 06:00 Urine Color Ltyellow 08/12/16 22:01 Urine Appearance Clear 08/12/16 22:01 Urine pH 7.0 (5.0-8.0) D 08/12/16 22:01 Ur Specific [place] 1.010 (1.005-1.025) 08/12/16 22:01 Urine Protein Negative (NEGATIVE) 08/12/16 22:01 Urine Glucose (UA) Negative (NEGATIVE) 08/12/16 22:01 Urine Ketones Negative (NEGATIVE) 08/12/16 22:01 Urine Blood Negative (NEGATIVE) 08/12/16 22:01 Urine Nitrite Negative (NEGATIVE) 08/12/16 22:01 Urine Bilirubin Negative (NEGATIVE) 08/12/16 22:01 Urine Urobilinogen Negative E.U./dl (0.2-1.0) 08/12/16 22:01 Ur Leukocyte Esterase Negative (NEGATIVE) 08/12/16 22:01 RPR Titer Nonreactive (NONREACTIVE) 08/13/16 06:00 Assessment: 08/14/16 11:12 WITHDRAWAL SYMPTOM 08/14/16 11:13 Plan: CONTINUE DETOX
[2016-08-14] MEDS: THIAMINE HCL 100 MG TABLET (FP) PO SCH (22:30)
[2016-08-14] MEDS: MONTELUKAST NA 10 MG TABLET PO SCH (22:31)
[2016-08-14] MEDS: QUEtiapine FUMARATE 100 MG TABLET (FP) PO SCH (22:31)
[2016-08-15] MEDS ORDERED: METHADONE HCL 40 MG DISPERSABLE TABLET ONE (05:21)
[2016-08-15] MEDS ORDERED: METHADONE HCL 10 MG TABLET ONE (05:21)
[2016-08-15] MEDS: METHADONE 80 MG, METHADONE 10 MG PO SCH (06:12)
[2016-08-15] MEDS: diazePAM 5 MG TABLET PO PRN (06:16)
[2016-08-15] MEDS: NICOTINE POLACRILEX 4 MG GUM BC PRN ×4 (09:01→22:23)
[2016-08-15] MEDS: PARoxetine HCL 10 MG TABLET (FP) PO SCH (10:30)
[2016-08-15] MEDS: RANITIDINE HCL 150 MG TABLET (FP) PO SCH ×2 (10:30→22:19)
[2016-08-15] MEDS: PRENATAL VITAMINS W/ FOLIC ACID TABLET (FP) PO SCH (10:30)
[2016-08-15] MEDS: DOCUSATE SODIUM 100 MG CAPSULE (FP) PO SCH ×2 (10:30→22:19)
[2016-08-15] MEDS: BUDESONIDE/FORMETEROL FUMARATE 80/4.5 mcg INHALER IH SCH ×2 (10:31→22:21)
[2016-08-15] MEDS: diazePAM 5 MG TABLET PO SCH ×2 (10:31→22:19)
[2016-08-15] MEDS: NICOTINE 21 MG/24 HOURS TOPICAL PATCH TD SCH (10:31)
--- NOTE | 2016-08-15 10:35 | PN ---
S Progress Note (SOAP) Subjective: ALERT,IRRITABLE,INTERRUPTED SLEEP Objective: 08/15/16 10:34 Vital Signs Temperature 98.1 F 08/15/16 09:55 Pulse Rate 68 08/15/16 09:55 Respiratory Rate 20 08/15/16 09:55 Blood Pressure 114/74 08/15/16 09:55 O2 Sat by Pulse Oximetry (%) Assessment: 08/15/16 10:34 WITHDRAWAL SYMPTOM Plan: CONTINUE DETOX,DISCHARGE IN AM
[2016-08-15] MEDS: THIAMINE HCL 100 MG TABLET (FP) PO SCH (22:19)
[2016-08-15] MEDS: QUEtiapine FUMARATE 100 MG TABLET (FP) PO SCH (22:19)
[2016-08-15] MEDS: MONTELUKAST NA 10 MG TABLET PO SCH (22:19)
[2016-08-16] MEDS ORDERED: METHADONE HCL 10 MG TABLET ONE (03:26)
[2016-08-16] MEDS ORDERED: METHADONE HCL 40 MG DISPERSABLE TABLET ONE (03:26)
[2016-08-16] MEDS: METHADONE 80 MG, METHADONE 10 MG PO SCH (06:47)
[2016-08-16] MEDS: NICOTINE POLACRILEX 4 MG GUM BC PRN ×3 (06:58→11:05)
[2016-08-16] MEDS ORDERED: diazePAM 5 MG TABLET PO SCH (10:00)
--- NOTE | 2016-08-16 10:54 | DS ---
[facility] Detox Discharge Summary Admission Date: 08/12/16 Discharge Date: 08/16/16 - History Present History: Alcohol Dependence, Cocaine Dependence, MMTP Pertinent Past History: Hep C - Physical Exam Results Vital Signs: Vital Signs Temperature 97.7 F 08/16/16 07:03 Pulse Rate 67 08/16/16 07:03 Respiratory Rate 16 08/16/16 07:03 Blood Pressure 116/72 08/16/16 07:03 O2 Sat by Pulse Oximetry (%) Pertinent Admission Physical Exam Findings: Withdrawal sx. Laboratory Last Values WBC 7.3 K/mm3 (4.0-10.0) 08/13/16 06:00 RBC 4.14 M/mm3 (4.00-5.60) 08/13/16 06:00 Hgb 12.2 GM/dL (11.7-16.9) 08/13/16 06:00 Hct 37.9 % (35.4-49) 08/13/16 06:00 MCV 91.7 fl (80-96) 08/13/16 06:00 MCHC 32.1 g/dl (32.0-35.9) 08/13/16 06:00 RDW 13.2 % (11.9-15.9) 08/13/16 06:00 Plt Count 185 K/MM3 (134-434) 08/13/16 06:00 MPV 10.5 fl (7.5-11.1) 08/13/16 06:00 Sodium 138 mmol/L (136-145) 08/13/16 06:00 Potassium 4.2 mmol/L (3.5-5.1) 08/13/16 06:00 Chloride 102 mmol/L (98-107) 08/13/16 06:00 Carbon Dioxide 28 mmol/L (21-32) 08/13/16 06:00 Anion Gap 8 (8-16) 08/13/16 06:00 BUN 9 mg/dL (7-18) 08/13/16 06:00 Creatinine 0.8 mg/dL (0.7-1.3) 08/13/16 06:00 Creat Clearance w eGFR > 60 (>60) 08/13/16 06:00 Random Glucose 108 mg/dL (74-106) H 08/13/16 06:00 Calcium 9.3 mg/dL (8.5-10.1) 08/13/16 06:00 Total Bilirubin 0.4 mg/dL (0.2-1.0) 08/13/16 06:00 AST 39 U/L (15-37) H D 08/13/16 06:00 ALT 47 U/L (12-78) D 08/13/16 06:00 Alkaline Phosphatase 95 U/L (45-117) 08/13/16 06:00 Total Protein 7.5 g/dl (6.4-8.2) 08/13/16 06:00 Albumin 3.8 g/dl (3.4-5.0) 08/13/16 06:00 Urine Color Ltyellow 08/12/16 22:01 Urine Appearance Clear 08/12/16 22:01 Urine pH 7.0 (5.0-8.0) D 08/12/16 22:01 Ur Specific [place] 1.010 (1.005-1.025) 08/12/16 22:01 Urine Protein Negative (NEGATIVE) 08/12/16 22:01 Urine Glucose (UA) Negative (NEGATIVE) 08/12/16 22:01 Urine Ketones Negative (NEGATIVE) 08/12/16 22:01 Urine Blood Negative (NEGATIVE) 08/12/16 22:01 Urine Nitrite Negative (NEGATIVE) 08/12/16 22:01 Urine Bilirubin Negative (NEGATIVE) 08/12/16 22:01 Urine Urobilinogen Negative E.U./dl (0.2-1.0) 08/12/16 22:01 Ur Leukocyte Esterase Negative (NEGATIVE) 08/12/16 22:01 RPR Titer Nonreactive (NONREACTIVE) 08/13/16 06:00 labs noted - Treatment Hospital Course: Detox Protocol Followed, Detoxed Safely, Responded well, Discharged Condition Good, Rehab Referral Accepted Patient has Accepted a Rehab Referral to: [facility] - Medication Discharge Medications: Ambulatory Orders Albuterol Sulfate Inhaler - [Ventolin Hfa Inhaler -] 2 inh PO Q4H PRN 06/10/16 Docusate Sodium [Colace -] 100 mg PO BID 06/10/16 Hydroxyzine HCl [Atarax -] 50 mg PO BID PRN 06/10/16 Montelukast Na [Singulair -] 10 mg PO HS 06/10/16 Quetiapine Fumarate [Seroquel] 100 tab PO HS 06/10/16 Ranitidine HCl [Zantac] 150 mg PO BID 06/10/16 Paroxetine HCl [Paxil -] 10 mg PO DAILY #30 tablet 06/11/16 Salmeterol/Fluticasone [Advair 250Mcg/50Mcg] 1 inh PO BID 08/12/16 Paroxetine HCl [Paxil -] 10 mg PO DAILY #30 tablet 08/13/16 Quetiapine Fumarate [Seroquel] 100 mg PO HS #30 tablet 08/13/16 - Diagnosis (1) Alcohol dependence with uncomplicated withdrawal Current Visit: Yes Status: Chronic (2) Cocaine dependence, uncomplicated Current Visit: Yes Status: Chronic (3) Nicotine dependence Current Visit: Yes Status: Chronic Qualifiers: Nicotine product type: cigarettes Substance use status: uncomplicated Qualified Code(s): F17.210 - Nicotine dependence, cigarettes, uncomplicated (4) Substance induced mood disorder Current Visit: No Status: Acute (5) History of hepatitis C virus infection Current Visit: No Status: Chronic (6) Opioid dependence on agonist therapy Current Visit: Yes Status: Chronic - AMA Did Patient Leave Against Medical Advice: No
[2016-08-16] MEDS: PARoxetine HCL 10 MG TABLET (FP) PO SCH (11:01)
[2016-08-16] MEDS: PRENATAL VITAMINS W/ FOLIC ACID TABLET (FP) PO SCH (11:01)
[2016-08-16] MEDS: RANITIDINE HCL 150 MG TABLET (FP) PO SCH (11:01)
[2016-08-16] MEDS: DOCUSATE SODIUM 100 MG CAPSULE (FP) PO SCH (11:01)
[2016-08-16] MEDS: BUDESONIDE/FORMETEROL FUMARATE 80/4.5 mcg INHALER IH SCH (11:02)
[2016-08-16] MEDS: NICOTINE 21 MG/24 HOURS TOPICAL PATCH TD SCH (11:02)
[2016-08-16 11:18] VITALS: BP 107/70; PULSE 72; TEMP 97.9
== END 2016-08-16 12:25 | disposition other institution (70) | DRG 897 ==
LOC: YASAS 12:46 → Y6N 17:08
PROVIDERS: ADMIT Internal Medicine Addiction Medicine; ATTEND Internal Medicine Addiction Medicine
PROC: HZ2ZZZZ Detoxification Services for Substance Abuse Treatment (ICD-10-PCS; principal; 2016-08-16)
DX: F11.20 Opioid dependence, uncomplicated (principal); F13.230 Sedative, hypnotic or anxiolytic dependence with withdrawal, uncomplicated; F10.230 Alcohol dependence with withdrawal, uncomplicated; F14.20 Cocaine dependence, uncomplicated; F17.210 Nicotine dependence, cigarettes, uncomplicated; F19.24 Other psychoactive substance dependence with psychoactive substance-induced mood disorder; B18.2 Chronic viral hepatitis C
CPT/HCPCS: 36415; 80053; 81003; 85027; 86593; 93005; 93010

== ENCOUNTER 2016-08-16 12:34 | Inpatient (IN) | payer OTHER ==
[2016-08-16 12:59] VITALS: BMI 28.4
[2016-08-16] MEDS ORDERED: guaiFENesin/D-METHORPHAN HB 10 ML UNIT-DOSE CUPS PO PRN (13:08)
[2016-08-16] MEDS ORDERED: MENTHOL/PHENOL 1 EACH UD MM PRN (13:08)
[2016-08-16] MEDS ORDERED: P-EPHED 60MG/TRIPROLIDI 2.5MG TABLET PO PRN (13:08)
[2016-08-16] MEDS ORDERED: MAGNESIUM HYDROX 2400MG/30ML ORAL SUSPENSION 30 ML CUP PO PRN (13:08)
[2016-08-16] MEDS ORDERED: IBUPROFEN 400 MG TABLET (FP) PO PRN (13:08)
[2016-08-16] MEDS ORDERED: LOPERAMIDE HCL 2 MG CAPSULE PO PRN (13:08)
[2016-08-16] MEDS ORDERED: ACETAMINOPHEN 325 MG TABLET (FP) PO PRN (13:08)
[2016-08-16] MEDS ORDERED: MAGNESIUM CITRATE 300 ML BOTTLE PO PRN (13:08)
[2016-08-16] MEDS ORDERED: ALBUTEROL SO4 6.7 GM HFA INHALER IH PRN (13:10)
[2016-08-16] MEDS: MAG HYDROX/AL HYDROX/SIMETH 30 ML UNIT-DOSE CUP PO PRN (13:27)
[2016-08-16] MEDS: NICOTINE POLACRILEX 4 MG GUM BUC PRN ×3 (14:29→21:34)
[2016-08-16] MEDS: hydrOXYzine PAMOATE 50 MG CAPSULE (FP) PO PRN (16:51)
[2016-08-16] MEDS: QUEtiapine FUMARATE 100 MG TABLET (FP) PO SCH (21:32)
[2016-08-16] MEDS: BUDESONIDE/FORMETEROL FUMARATE 80/4.5 mcg INHALER IH SCH (21:32)
[2016-08-16] MEDS: RANITIDINE HCL 150 MG TABLET (FP) PO SCH (21:33)
[2016-08-16] MEDS: DOCUSATE SODIUM 100 MG CAPSULE (FP) PO SCH (21:33)
[2016-08-16] MEDS: MONTELUKAST NA 10 MG TABLET PO SCH (21:33)
[2016-08-16] MEDS: THIAMINE HCL 100 MG TABLET (FP) PO SCH (21:34)
[2016-08-16] MEDS ORDERED: PATIENT'S OWN MEDICATION (NON-FORMULARY) (Ranitidine Hcl [Zantac] 150 MG) PO SCH (22:00)
[2016-08-17] MEDS ORDERED: METHADONE HCL 40 MG DISPERSABLE TABLET ONE (05:39)
[2016-08-17] MEDS ORDERED: METHADONE HCL 10 MG TABLET ONE (05:39)
[2016-08-17] MEDS ORDERED: METHADONE HCL 10 MG TABLET PO SCH (06:00)
[2016-08-17] MEDS: METHADONE 80 MG, METHADONE 10 MG PO SCH (06:41)
[2016-08-17] MEDS: NICOTINE POLACRILEX 4 MG GUM BUC PRN ×6 (06:42→21:32)
[2016-08-17] MEDS: hydrOXYzine PAMOATE 50 MG CAPSULE (FP) PO PRN ×4 (06:43→21:31)
[2016-08-17] MEDS: BUDESONIDE/FORMETEROL FUMARATE 80/4.5 mcg INHALER IH SCH ×2 (09:59→21:29)
[2016-08-17] MEDS: DOCUSATE SODIUM 100 MG CAPSULE (FP) PO SCH ×2 (09:59→21:31)
[2016-08-17] MEDS: PARoxetine HCL 10 MG TABLET (FP) PO SCH (09:59)
[2016-08-17] MEDS: PRENATAL VITAMINS W/ FOLIC ACID TABLET (FP) PO SCH (10:00)
[2016-08-17] MEDS: RANITIDINE HCL 150 MG TABLET (FP) PO SCH ×2 (10:00→21:30)
[2016-08-17] MEDS: QUEtiapine FUMARATE 100 MG TABLET (FP) PO SCH (21:30)
[2016-08-17] MEDS: THIAMINE HCL 100 MG TABLET (FP) PO SCH (21:30)
[2016-08-17] MEDS: MONTELUKAST NA 10 MG TABLET PO SCH (21:30)
[2016-08-18] MEDS ORDERED: METHADONE HCL 10 MG TABLET ONE (05:46)
[2016-08-18] MEDS ORDERED: METHADONE HCL 40 MG DISPERSABLE TABLET ONE (05:46)
[2016-08-18] MEDS: METHADONE 80 MG, METHADONE 10 MG PO SCH (06:32)
[2016-08-18] MEDS: NICOTINE POLACRILEX 4 MG GUM BUC PRN ×5 (06:37→18:09)
--- NOTE | 2016-08-18 07:55 | HP ---
Psychiatrist Admission - Data Date of interview: 08/18/16 Admission source: [facility]N Identifying data: This is the first [facility] admission for this 46 years old single male, father of a 9 years old daughter, unemployed on SSD, homeless Medical History: Significant for Bronchial asthma,arthritis, hepatitis C, GERD and past history of right hip replacement.Smokes 10 cigarettes daily Psychiatric History: Reports being diagnosed with Bipolar depression more than 20 years ago and has had 2 previous psychiaric hospitalizations. First hospitalization was 2004 in [place], [place] for depression and suicidal attempt by cutting wrist. The second one was in 2010 in [place]. Reports receiving OPD care at [facility] and he is prescribed Paxil 10 mg po daily and Seroquel 100 mg po HS. Physical/Sexual Abuse/Trauma History: Denies history of emotional, physical or sexual abuse as wel as DV relationship Additional Comment: Reports history of 2 previous misdemeanor arrests. Denies being on probation at present Vital Signs: Vital Signs - 24 hr 08/18/16 08/18/16 08/18/16 00:30 03:30 07:46 Temperature 97.8 F Pulse Rate 62 Respiratory 18 18 18 Rate Blood Pressure 97/68 Allergies/Adverse Reactions: Allergies Allergy/AdvReac Type Severity Reaction Status Date / Time Fish Containing Products Allergy Verified 08/16/16 13:01 fish Allergy Intermediate Rash Uncoded 08/16/16 13:01 Date of last physical exam: 08/12/16 Concur with the findings of this exam: Yes - Substance Abuse/Tx History Hx Alcohol Use: Yes Hx Substance Use: Yes Substance Use Type: Alcohol (Started drinking alcohol at age 24, consumes 2x 6pk of beer daily. Last drink on 08/12/16), Cocaine (Started using cocaine at age 23, consumes $60 worth 1-2 times weekly. Last used on 08/05/16), Tranquilizers (Started using xanax at age 41, consumes 8-10 mg daily. Last used on 08/11/16) Hx Substance Use Treatment: Yes (2 previous inpt detox @ [facility]. Currently attends [facility]) - Admission Criteria Previous failed treatment: No Poor recovery environment: Yes Comorbidities: Yes Lacks judgement: Yes Mental Status Exam - Mental Status Exam Alert and Oriented to: Time, Place, Person Cognitive Function: Fair Patient Appearance: Well Groomed Mood: Hopeful, Euthymic Patient Behavior: Cooperative Speech Pattern: Clear Voice Loudness: Normal Thought Process: Intact Thought Disorder: Not Present Hallucinations: Denies Suicidal Ideation: Denies Homicidal Ideation: Denies Insight/Judgement: Fair Sleep: Fair Appetite: Good Muscle strength/Tone: Normal Gait/Station: Normal Psychiatric Findings - Problem List ([place] 1, 2,3) (1) Alcohol dependence with uncomplicated withdrawal Current Visit: No Status: Chronic (2) Cocaine dependence, uncomplicated Current Visit: No Status: Chronic (3) Sedative hypnotic or anxiolytic dependence Current Visit: Yes Status: Acute (4) Opioid dependence on agonist therapy Current Visit: No Status: Chronic (5) Nicotine dependence Current Visit: No Status: Chronic Qualifiers: Nicotine product type: cigarettes Substance use status: uncomplicated Qualified Code(s): F17.210 - Nicotine dependence, cigarettes, uncomplicated (6) Bipolar II disorder Current Visit: Yes Status: Acute (7) MDD (major depressive disorder) Current Visit: Yes Status: Ruled-out (8) History of hepatitis C virus infection Current Visit: No Status: Chronic (9) GERD (gastroesophageal reflux disease) Current Visit: Yes Status: Acute (10) Asthma Current Visit: Yes Status: Acute - Initial Treatment Plan Initial Treatment Plan: 1) Continue Paxil 10 mg po daily and Seroquel 100 mg po HS. 2) Monitor progress
[2016-08-18] MEDS: BUDESONIDE/FORMETEROL FUMARATE 80/4.5 mcg INHALER IH SCH ×2 (10:11→21:12)
[2016-08-18] MEDS: DOCUSATE SODIUM 100 MG CAPSULE (FP) PO SCH ×2 (10:11→21:12)
[2016-08-18] MEDS: PARoxetine HCL 10 MG TABLET (FP) PO SCH (10:11)
[2016-08-18] MEDS: PRENATAL VITAMINS W/ FOLIC ACID TABLET (FP) PO SCH (10:11)
[2016-08-18] MEDS: RANITIDINE HCL 150 MG TABLET (FP) PO SCH ×2 (10:49→21:12)
[2016-08-18] MEDS: MAG HYDROX/AL HYDROX/SIMETH 30 ML UNIT-DOSE CUP PO PRN ×2 (16:03→23:39)
[2016-08-18] MEDS: hydrOXYzine PAMOATE 50 MG CAPSULE (FP) PO PRN ×2 (18:05→23:39)
[2016-08-18] MEDS: QUEtiapine FUMARATE 100 MG TABLET (FP) PO SCH (21:12)
[2016-08-18] MEDS: MONTELUKAST NA 10 MG TABLET PO SCH (21:12)
[2016-08-18] MEDS: THIAMINE HCL 100 MG TABLET (FP) PO SCH (21:12)
[2016-08-19] MEDS ORDERED: ALBUTEROL SO4 6.7 GM HFA INHALER IH ONE (01:11)
[2016-08-19] MEDS: ALBUTEROL SO4 6.7 GM HFA INHALER IH PRN (01:15)
[2016-08-19] MEDS ORDERED: METHADONE HCL 40 MG DISPERSABLE TABLET ONE (04:16)
[2016-08-19] MEDS ORDERED: METHADONE HCL 10 MG TABLET ONE (04:16)
[2016-08-19] MEDS: METHADONE 80 MG, METHADONE 10 MG PO SCH (06:30)
[2016-08-19] MEDS: MAG HYDROX/AL HYDROX/SIMETH 30 ML UNIT-DOSE CUP PO PRN (06:33)
[2016-08-19] MEDS: NICOTINE POLACRILEX 4 MG GUM BUC PRN ×4 (06:33→21:10)
[2016-08-19] MEDS: PRENATAL VITAMINS W/ FOLIC ACID TABLET (FP) PO SCH (09:24)
[2016-08-19] MEDS: hydrOXYzine PAMOATE 50 MG CAPSULE (FP) PO PRN ×2 (09:24→19:56)
[2016-08-19] MEDS: PARoxetine HCL 10 MG TABLET (FP) PO SCH (09:24)
[2016-08-19] MEDS: RANITIDINE HCL 150 MG TABLET (FP) PO SCH ×2 (09:24→21:10)
[2016-08-19] MEDS: DOCUSATE SODIUM 100 MG CAPSULE (FP) PO SCH ×2 (09:24→21:10)
[2016-08-19] MEDS: BUDESONIDE/FORMETEROL FUMARATE 80/4.5 mcg INHALER IH SCH ×2 (09:25→21:09)
[2016-08-19] MEDS: THIAMINE HCL 100 MG TABLET (FP) PO SCH (21:09)
[2016-08-19] MEDS: diphenhydrAMINE HCL 50 MG CAPSULE PO PRN (21:09)
[2016-08-19] MEDS: QUEtiapine FUMARATE 100 MG TABLET (FP) PO SCH (21:09)
[2016-08-19] MEDS: MONTELUKAST NA 10 MG TABLET PO SCH (21:10)
[2016-08-20] MEDS ORDERED: METHADONE HCL 40 MG DISPERSABLE TABLET ONE (03:43)
[2016-08-20] MEDS ORDERED: METHADONE HCL 10 MG TABLET ONE (03:43)
[2016-08-20] MEDS: METHADONE 80 MG, METHADONE 10 MG PO SCH (06:07)
[2016-08-20] MEDS: MAG HYDROX/AL HYDROX/SIMETH 30 ML UNIT-DOSE CUP PO PRN ×2 (06:10→21:39)
[2016-08-20] MEDS: hydrOXYzine PAMOATE 50 MG CAPSULE (FP) PO PRN ×2 (06:10→17:54)
[2016-08-20] MEDS: NICOTINE POLACRILEX 4 MG GUM BUC PRN ×7 (06:11→21:31)
[2016-08-20] MEDS: PARoxetine HCL 10 MG TABLET (FP) PO SCH (10:25)
[2016-08-20] MEDS: PRENATAL VITAMINS W/ FOLIC ACID TABLET (FP) PO SCH (10:25)
[2016-08-20] MEDS: DOCUSATE SODIUM 100 MG CAPSULE (FP) PO SCH ×2 (10:25→21:31)
[2016-08-20] MEDS: RANITIDINE HCL 150 MG TABLET (FP) PO SCH ×2 (10:25→21:31)
[2016-08-20] MEDS: BUDESONIDE/FORMETEROL FUMARATE 80/4.5 mcg INHALER IH SCH ×2 (10:25→21:31)
[2016-08-20] MEDS: QUEtiapine FUMARATE 100 MG TABLET (FP) PO SCH (21:31)
[2016-08-20] MEDS: THIAMINE HCL 100 MG TABLET (FP) PO SCH (21:31)
[2016-08-20] MEDS: diphenhydrAMINE HCL 50 MG CAPSULE PO PRN (21:33)
[2016-08-20] MEDS: MONTELUKAST NA 10 MG TABLET PO SCH (21:34)
[2016-08-21] MEDS ORDERED: METHADONE HCL 10 MG TABLET ONE (05:11)
[2016-08-21] MEDS ORDERED: METHADONE HCL 40 MG DISPERSABLE TABLET ONE (05:11)
[2016-08-21] MEDS: METHADONE 80 MG, METHADONE 10 MG PO SCH (06:05)
[2016-08-21] MEDS: MAG HYDROX/AL HYDROX/SIMETH 30 ML UNIT-DOSE CUP PO PRN (06:08)
[2016-08-21] MEDS: NICOTINE POLACRILEX 4 MG GUM BUC PRN ×6 (06:08→21:24)
[2016-08-21] MEDS: BUDESONIDE/FORMETEROL FUMARATE 80/4.5 mcg INHALER IH SCH ×2 (09:45→21:22)
[2016-08-21] MEDS: DOCUSATE SODIUM 100 MG CAPSULE (FP) PO SCH ×2 (09:45→21:22)
[2016-08-21] MEDS: PARoxetine HCL 10 MG TABLET (FP) PO SCH (09:45)
[2016-08-21] MEDS: RANITIDINE HCL 150 MG TABLET (FP) PO SCH ×2 (09:46→21:22)
[2016-08-21] MEDS: PRENATAL VITAMINS W/ FOLIC ACID TABLET (FP) PO SCH (09:47)
[2016-08-21] MEDS: ALBUTEROL SO4 6.7 GM HFA INHALER IH PRN (18:54)
[2016-08-21] MEDS: QUEtiapine FUMARATE 100 MG TABLET (FP) PO SCH (21:22)
[2016-08-21] MEDS: THIAMINE HCL 100 MG TABLET (FP) PO SCH (21:22)
[2016-08-21] MEDS: diphenhydrAMINE HCL 50 MG CAPSULE PO PRN (21:22)
[2016-08-21] MEDS: MONTELUKAST NA 10 MG TABLET PO SCH (21:22)
[2016-08-21] MEDS: hydrOXYzine PAMOATE 50 MG CAPSULE (FP) PO PRN (21:23)
[2016-08-22] MEDS ORDERED: METHADONE HCL 40 MG DISPERSABLE TABLET ONE (03:50)
[2016-08-22] MEDS ORDERED: METHADONE HCL 10 MG TABLET ONE (03:50)
[2016-08-22] MEDS: METHADONE 80 MG, METHADONE 10 MG PO SCH (06:21)
[2016-08-22] MEDS: MAG HYDROX/AL HYDROX/SIMETH 30 ML UNIT-DOSE CUP PO PRN ×3 (06:23→21:53)
[2016-08-22] MEDS: NICOTINE POLACRILEX 4 MG GUM BUC PRN ×3 (06:23→17:59)
[2016-08-22] MEDS: RANITIDINE HCL 150 MG TABLET (FP) PO SCH ×2 (10:50→21:51)
[2016-08-22] MEDS: DOCUSATE SODIUM 100 MG CAPSULE (FP) PO SCH ×2 (10:50→21:51)
[2016-08-22] MEDS: PRENATAL VITAMINS W/ FOLIC ACID TABLET (FP) PO SCH (10:50)
[2016-08-22] MEDS: PARoxetine HCL 10 MG TABLET (FP) PO SCH (10:50)
[2016-08-22] MEDS: BUDESONIDE/FORMETEROL FUMARATE 80/4.5 mcg INHALER IH SCH ×2 (10:50→21:51)
[2016-08-22] MEDS: QUEtiapine FUMARATE 100 MG TABLET (FP) PO SCH (21:51)
[2016-08-22] MEDS: MONTELUKAST NA 10 MG TABLET PO SCH (21:51)
[2016-08-22] MEDS: THIAMINE HCL 100 MG TABLET (FP) PO SCH (21:51)
[2016-08-22] MEDS: diphenhydrAMINE HCL 50 MG CAPSULE PO PRN (21:54)
[2016-08-23] MEDS ORDERED: METHADONE HCL 40 MG DISPERSABLE TABLET ONE (04:01)
[2016-08-23] MEDS ORDERED: METHADONE HCL 10 MG TABLET ONE (04:01)
[2016-08-23] MEDS: METHADONE 80 MG, METHADONE 10 MG PO SCH (06:07)
[2016-08-23] MEDS: NICOTINE POLACRILEX 4 MG GUM BUC PRN ×4 (06:07→21:09)
[2016-08-23] MEDS: DOCUSATE SODIUM 100 MG CAPSULE (FP) PO SCH ×2 (10:21→21:07)
[2016-08-23] MEDS: RANITIDINE HCL 150 MG TABLET (FP) PO SCH ×2 (10:21→21:07)
[2016-08-23] MEDS: PRENATAL VITAMINS W/ FOLIC ACID TABLET (FP) PO SCH (10:21)
[2016-08-23] MEDS: PARoxetine HCL 10 MG TABLET (FP) PO SCH (10:21)
[2016-08-23] MEDS: BUDESONIDE/FORMETEROL FUMARATE 80/4.5 mcg INHALER IH SCH ×2 (10:22→21:06)
[2016-08-23] MEDS: MAG HYDROX/AL HYDROX/SIMETH 30 ML UNIT-DOSE CUP PO PRN ×2 (12:22→21:08)
[2016-08-23] MEDS: MONTELUKAST NA 10 MG TABLET PO SCH (21:07)
[2016-08-23] MEDS: diphenhydrAMINE HCL 50 MG CAPSULE PO PRN (21:07)
[2016-08-23] MEDS: QUEtiapine FUMARATE 100 MG TABLET (FP) PO SCH (21:07)
[2016-08-23] MEDS: THIAMINE HCL 100 MG TABLET (FP) PO SCH (21:07)
[2016-08-24] MEDS ORDERED: METHADONE HCL 10 MG TABLET ONE (03:54)
[2016-08-24] MEDS ORDERED: METHADONE HCL 40 MG DISPERSABLE TABLET ONE (03:55)
[2016-08-24] MEDS: METHADONE 80 MG, METHADONE 10 MG PO SCH (06:23)
[2016-08-24] MEDS: hydrOXYzine PAMOATE 50 MG CAPSULE (FP) PO PRN (06:24)
[2016-08-24] MEDS: NICOTINE POLACRILEX 4 MG GUM BUC PRN ×5 (06:25→21:37)
[2016-08-24] MEDS: BUDESONIDE/FORMETEROL FUMARATE 80/4.5 mcg INHALER IH SCH ×2 (10:08→21:35)
[2016-08-24] MEDS: PARoxetine HCL 10 MG TABLET (FP) PO SCH (10:09)
[2016-08-24] MEDS: DOCUSATE SODIUM 100 MG CAPSULE (FP) PO SCH ×2 (10:09→21:35)
[2016-08-24] MEDS: PRENATAL VITAMINS W/ FOLIC ACID TABLET (FP) PO SCH (10:09)
[2016-08-24] MEDS: RANITIDINE HCL 150 MG TABLET (FP) PO SCH ×2 (10:09→21:35)
[2016-08-24] MEDS: MAG HYDROX/AL HYDROX/SIMETH 30 ML UNIT-DOSE CUP PO PRN (11:25)
[2016-08-24] MEDS: QUEtiapine FUMARATE 100 MG TABLET (FP) PO SCH (21:35)
[2016-08-24] MEDS: MONTELUKAST NA 10 MG TABLET PO SCH (21:35)
[2016-08-24] MEDS: THIAMINE HCL 100 MG TABLET (FP) PO SCH (21:35)
[2016-08-24] MEDS: diphenhydrAMINE HCL 50 MG CAPSULE PO PRN (21:35)
[2016-08-25] MEDS ORDERED: METHADONE HCL 10 MG TABLET ONE (05:15)
[2016-08-25] MEDS ORDERED: METHADONE HCL 40 MG DISPERSABLE TABLET ONE (05:16)
[2016-08-25] MEDS: METHADONE 80 MG, METHADONE 10 MG PO SCH (06:05)
[2016-08-25] MEDS: NICOTINE POLACRILEX 4 MG GUM BUC PRN ×4 (06:07→21:29)
[2016-08-25] MEDS: hydrOXYzine PAMOATE 50 MG CAPSULE (FP) PO PRN (06:07)
[2016-08-25] MEDS: RANITIDINE HCL 150 MG TABLET (FP) PO SCH ×2 (10:27→21:28)
[2016-08-25] MEDS: PRENATAL VITAMINS W/ FOLIC ACID TABLET (FP) PO SCH (10:27)
[2016-08-25] MEDS: DOCUSATE SODIUM 100 MG CAPSULE (FP) PO SCH ×2 (10:27→21:28)
[2016-08-25] MEDS: PARoxetine HCL 10 MG TABLET (FP) PO SCH (10:27)
[2016-08-25] MEDS: BUDESONIDE/FORMETEROL FUMARATE 80/4.5 mcg INHALER IH SCH ×2 (10:28→21:28)
[2016-08-25] MEDS: THIAMINE HCL 100 MG TABLET (FP) PO SCH (21:28)
[2016-08-25] MEDS: MONTELUKAST NA 10 MG TABLET PO SCH (21:28)
[2016-08-25] MEDS: QUEtiapine FUMARATE 100 MG TABLET (FP) PO SCH (21:28)
[2016-08-25] MEDS: diphenhydrAMINE HCL 50 MG CAPSULE PO PRN (21:28)
[2016-08-26] MEDS ORDERED: METHADONE HCL 40 MG DISPERSABLE TABLET ONE (03:49)
[2016-08-26] MEDS ORDERED: METHADONE HCL 10 MG TABLET ONE (03:49)
[2016-08-26] MEDS: NICOTINE POLACRILEX 4 MG GUM BUC PRN ×5 (05:53→21:59)
[2016-08-26] MEDS: METHADONE 80 MG, METHADONE 10 MG PO SCH (05:53)
[2016-08-26] MEDS: PRENATAL VITAMINS W/ FOLIC ACID TABLET (FP) PO SCH (10:05)
[2016-08-26] MEDS: PARoxetine HCL 10 MG TABLET (FP) PO SCH (10:05)
[2016-08-26] MEDS: DOCUSATE SODIUM 100 MG CAPSULE (FP) PO SCH ×2 (10:05→21:57)
[2016-08-26] MEDS: RANITIDINE HCL 150 MG TABLET (FP) PO SCH ×2 (10:05→21:57)
[2016-08-26] MEDS: BUDESONIDE/FORMETEROL FUMARATE 80/4.5 mcg INHALER IH SCH ×2 (10:05→21:57)
[2016-08-26] MEDS: hydrOXYzine PAMOATE 50 MG CAPSULE (FP) PO PRN (17:43)
[2016-08-26] MEDS: MAG HYDROX/AL HYDROX/SIMETH 30 ML UNIT-DOSE CUP PO PRN (18:58)
[2016-08-26] MEDS: MONTELUKAST NA 10 MG TABLET PO SCH (21:57)
[2016-08-26] MEDS: THIAMINE HCL 100 MG TABLET (FP) PO SCH (21:57)
[2016-08-26] MEDS: diphenhydrAMINE HCL 50 MG CAPSULE PO PRN (21:58)
[2016-08-26] MEDS: QUEtiapine FUMARATE 100 MG TABLET (FP) PO SCH (21:58)
[2016-08-27] MEDS ORDERED: METHADONE HCL 40 MG DISPERSABLE TABLET ONE (04:13)
[2016-08-27] MEDS ORDERED: METHADONE HCL 10 MG TABLET ONE (04:13)
[2016-08-27] MEDS: METHADONE 80 MG, METHADONE 10 MG PO SCH (06:14)
[2016-08-27] MEDS: NICOTINE POLACRILEX 4 MG GUM BUC PRN ×5 (06:16→21:14)
[2016-08-27] MEDS: hydrOXYzine PAMOATE 50 MG CAPSULE (FP) PO PRN (06:16)
[2016-08-27] MEDS: RANITIDINE HCL 150 MG TABLET (FP) PO SCH ×2 (10:37→21:13)
[2016-08-27] MEDS: PRENATAL VITAMINS W/ FOLIC ACID TABLET (FP) PO SCH (10:37)
[2016-08-27] MEDS: BUDESONIDE/FORMETEROL FUMARATE 80/4.5 mcg INHALER IH SCH ×2 (10:37→21:12)
[2016-08-27] MEDS: DOCUSATE SODIUM 100 MG CAPSULE (FP) PO SCH ×2 (10:37→21:13)
[2016-08-27] MEDS: PARoxetine HCL 10 MG TABLET (FP) PO SCH (10:37)
[2016-08-27] MEDS: MAG HYDROX/AL HYDROX/SIMETH 30 ML UNIT-DOSE CUP PO PRN (19:52)
[2016-08-27] MEDS: QUEtiapine FUMARATE 100 MG TABLET (FP) PO SCH (21:12)
[2016-08-27] MEDS: THIAMINE HCL 100 MG TABLET (FP) PO SCH (21:12)
[2016-08-27] MEDS: MONTELUKAST NA 10 MG TABLET PO SCH (21:13)
[2016-08-27] MEDS: diphenhydrAMINE HCL 50 MG CAPSULE PO PRN (21:13)
[2016-08-28] MEDS ORDERED: METHADONE HCL 10 MG TABLET ONE (03:57)
[2016-08-28] MEDS ORDERED: METHADONE HCL 40 MG DISPERSABLE TABLET ONE (03:57)
[2016-08-28] MEDS: METHADONE 80 MG, METHADONE 10 MG PO SCH (06:19)
[2016-08-28] MEDS: hydrOXYzine PAMOATE 50 MG CAPSULE (FP) PO PRN (06:19)
[2016-08-28] MEDS: NICOTINE POLACRILEX 4 MG GUM BUC PRN ×6 (06:19→21:41)
[2016-08-28] MEDS: PRENATAL VITAMINS W/ FOLIC ACID TABLET (FP) PO SCH (10:21)
[2016-08-28] MEDS: BUDESONIDE/FORMETEROL FUMARATE 80/4.5 mcg INHALER IH SCH ×2 (10:22→21:40)
[2016-08-28] MEDS: PARoxetine HCL 10 MG TABLET (FP) PO SCH (10:22)
[2016-08-28] MEDS: RANITIDINE HCL 150 MG TABLET (FP) PO SCH ×2 (10:22→21:40)
[2016-08-28] MEDS: DOCUSATE SODIUM 100 MG CAPSULE (FP) PO SCH ×2 (10:22→21:40)
[2016-08-28] MEDS: QUEtiapine FUMARATE 100 MG TABLET (FP) PO SCH (21:40)
[2016-08-28] MEDS: MONTELUKAST NA 10 MG TABLET PO SCH (21:40)
[2016-08-28] MEDS: diphenhydrAMINE HCL 50 MG CAPSULE PO PRN (21:40)
[2016-08-28] MEDS: THIAMINE HCL 100 MG TABLET (FP) PO SCH (21:40)
[2016-08-29] MEDS ORDERED: METHADONE HCL 10 MG TABLET ONE (04:02)
[2016-08-29] MEDS ORDERED: METHADONE HCL 40 MG DISPERSABLE TABLET ONE (04:02)
[2016-08-29] MEDS: hydrOXYzine PAMOATE 50 MG CAPSULE (FP) PO PRN (06:20)
[2016-08-29] MEDS: NICOTINE POLACRILEX 4 MG GUM BUC PRN ×4 (06:20→18:20)
[2016-08-29] MEDS: METHADONE 80 MG, METHADONE 10 MG PO SCH (06:21)
[2016-08-29] MEDS: RANITIDINE HCL 150 MG TABLET (FP) PO SCH ×2 (10:21→21:40)
[2016-08-29] MEDS: DOCUSATE SODIUM 100 MG CAPSULE (FP) PO SCH ×2 (10:21→21:40)
[2016-08-29] MEDS: PRENATAL VITAMINS W/ FOLIC ACID TABLET (FP) PO SCH (10:21)
[2016-08-29] MEDS: PARoxetine HCL 10 MG TABLET (FP) PO SCH (10:21)
[2016-08-29] MEDS: BUDESONIDE/FORMETEROL FUMARATE 80/4.5 mcg INHALER IH SCH ×2 (10:22→21:42)
[2016-08-29] MEDS: diphenhydrAMINE HCL 50 MG CAPSULE PO PRN (21:40)
[2016-08-29] MEDS: QUEtiapine FUMARATE 100 MG TABLET (FP) PO SCH (21:40)
[2016-08-29] MEDS: MONTELUKAST NA 10 MG TABLET PO SCH (21:40)
[2016-08-29] MEDS: THIAMINE HCL 100 MG TABLET (FP) PO SCH (21:40)
[2016-08-30] MEDS ORDERED: METHADONE HCL 40 MG DISPERSABLE TABLET ONE (06:00)
[2016-08-30] MEDS ORDERED: METHADONE HCL 10 MG TABLET ONE (06:00)
[2016-08-30] MEDS: METHADONE 80 MG, METHADONE 10 MG PO SCH (06:22)
[2016-08-30] MEDS: NICOTINE POLACRILEX 4 MG GUM BUC PRN ×6 (06:24→21:18)
[2016-08-30] MEDS: BUDESONIDE/FORMETEROL FUMARATE 80/4.5 mcg INHALER IH SCH ×2 (10:12→21:15)
[2016-08-30] MEDS: PARoxetine HCL 10 MG TABLET (FP) PO SCH (10:12)
[2016-08-30] MEDS: RANITIDINE HCL 150 MG TABLET (FP) PO SCH ×2 (10:12→21:16)
[2016-08-30] MEDS: PRENATAL VITAMINS W/ FOLIC ACID TABLET (FP) PO SCH (10:13)
[2016-08-30] MEDS: DOCUSATE SODIUM 100 MG CAPSULE (FP) PO SCH ×2 (10:13→21:15)
[2016-08-30] MEDS: MONTELUKAST NA 10 MG TABLET PO SCH (21:15)
[2016-08-30] MEDS: QUEtiapine FUMARATE 100 MG TABLET (FP) PO SCH (21:15)
[2016-08-30] MEDS: THIAMINE HCL 100 MG TABLET (FP) PO SCH (21:16)
[2016-08-30] MEDS: diphenhydrAMINE HCL 50 MG CAPSULE PO PRN (21:16)
[2016-08-31] MEDS ORDERED: METHADONE HCL 10 MG TABLET ONE (02:26)
[2016-08-31] MEDS ORDERED: METHADONE HCL 40 MG DISPERSABLE TABLET ONE (02:27)
[2016-08-31] MEDS: METHADONE 80 MG, METHADONE 10 MG PO SCH (06:10)
[2016-08-31] MEDS: NICOTINE POLACRILEX 4 MG GUM BUC PRN ×6 (06:11→20:24)
[2016-08-31] MEDS: BUDESONIDE/FORMETEROL FUMARATE 80/4.5 mcg INHALER IH SCH ×2 (10:00→21:13)
[2016-08-31] MEDS: PRENATAL VITAMINS W/ FOLIC ACID TABLET (FP) PO SCH (10:00)
[2016-08-31] MEDS: RANITIDINE HCL 150 MG TABLET (FP) PO SCH ×2 (10:00→21:14)
[2016-08-31] MEDS: DOCUSATE SODIUM 100 MG CAPSULE (FP) PO SCH ×2 (10:00→21:14)
[2016-08-31] MEDS: PARoxetine HCL 10 MG TABLET (FP) PO SCH (10:00)
[2016-08-31] MEDS: hydrOXYzine PAMOATE 50 MG CAPSULE (FP) PO PRN (10:01)
[2016-08-31] MEDS: THIAMINE HCL 100 MG TABLET (FP) PO SCH (21:13)
[2016-08-31] MEDS: QUEtiapine FUMARATE 100 MG TABLET (FP) PO SCH (21:14)
[2016-08-31] MEDS: MONTELUKAST NA 10 MG TABLET PO SCH (21:14)
[2016-08-31] MEDS: diphenhydrAMINE HCL 50 MG CAPSULE PO PRN (21:14)
[2016-08-31] MEDS: MAG HYDROX/AL HYDROX/SIMETH 30 ML UNIT-DOSE CUP PO PRN (21:15)
[2016-09-01] MEDS ORDERED: METHADONE HCL 40 MG DISPERSABLE TABLET ONE (04:19)
[2016-09-01] MEDS ORDERED: METHADONE HCL 10 MG TABLET ONE (04:19)
[2016-09-01] MEDS: NICOTINE POLACRILEX 4 MG GUM BUC PRN ×6 (05:47→20:31)
[2016-09-01] MEDS: METHADONE 80 MG, METHADONE 10 MG PO SCH (05:47)
[2016-09-01] MEDS: hydrOXYzine PAMOATE 50 MG CAPSULE (FP) PO PRN (05:47)
[2016-09-01] MEDS: RANITIDINE HCL 150 MG TABLET (FP) PO SCH ×2 (10:14→21:48)
[2016-09-01] MEDS: PRENATAL VITAMINS W/ FOLIC ACID TABLET (FP) PO SCH (10:14)
[2016-09-01] MEDS: PARoxetine HCL 10 MG TABLET (FP) PO SCH (10:14)
[2016-09-01] MEDS: DOCUSATE SODIUM 100 MG CAPSULE (FP) PO SCH ×2 (10:14→21:48)
[2016-09-01] MEDS: BUDESONIDE/FORMETEROL FUMARATE 80/4.5 mcg INHALER IH SCH ×2 (10:14→21:49)
[2016-09-01] MEDS: MAG HYDROX/AL HYDROX/SIMETH 30 ML UNIT-DOSE CUP PO PRN (10:16)
--- NOTE | 2016-09-01 13:49 | PN ---
[facility] Progress Note Note: edema both legs,lasix 40 mgs po dialy for 4 days,history of hepatititis c , stated treated but not complete, advise to seehis pmd and improvement coordinator upon discharge
[2016-09-01] MEDS ORDERED: FUROSEMIDE 40 MG TABLET (FP) PO ONE (14:32)
[2016-09-01] MEDS: MONTELUKAST NA 10 MG TABLET PO SCH (21:48)
[2016-09-01] MEDS: diphenhydrAMINE HCL 50 MG CAPSULE PO PRN (21:48)
[2016-09-01] MEDS: QUEtiapine FUMARATE 100 MG TABLET (FP) PO SCH (21:48)
[2016-09-01] MEDS: THIAMINE HCL 100 MG TABLET (FP) PO SCH (21:48)
[2016-09-02] MEDS ORDERED: METHADONE HCL 10 MG TABLET ONE (04:07)
[2016-09-02] MEDS ORDERED: METHADONE HCL 40 MG DISPERSABLE TABLET ONE (04:07)
[2016-09-02] MEDS: hydrOXYzine PAMOATE 50 MG CAPSULE (FP) PO PRN (06:06)
[2016-09-02] MEDS: METHADONE 80 MG, METHADONE 10 MG PO SCH (06:06)
[2016-09-02] MEDS: NICOTINE POLACRILEX 4 MG GUM BUC PRN ×3 (06:07→10:36)
[2016-09-02 06:50] VITALS: TEMP 97.5
--- NOTE | 2016-09-02 07:52 | PN ---
Psychiatric Progress Note Vital Signs: Vital Signs Period Temp Pulse Resp BP Sys/Tavares Pulse Ox Last 24 Hr 97.5 F 67 18-18 114/76 Date of Session: 09/02/16 Chief Complaint:: Discharge Note HPI: Patient addressing Alcohol, Cocaine and Sedative Dependence comorbid with Opoid Dependence on Agonist Therapy, Nicotine Dependence and Bipolar II Disorder ROS: Hep C Current Medications: Active Medications Generic Name Dose Route Start Last Admin Trade Name Freq PRN Reason Stop Dose Admin Acetaminophen 650 mg 08/16/16 13:08 Tylenol - PO Q4H PRN FEVER OR PAIN Al Hydroxide/Mg Hydroxide 30 ml 08/16/16 13:08 09/01/16 10:16 Mylanta Oral Suspension - PO 30 ml Q6H PRN Administration DYSPEPSIA Albuterol Sulfate 2 puff 08/19/16 01:17 08/21/16 18:54 Ventolin Hfa Inhaler - IH 2 puff Q4H PRN Administration ASTHMA Budesonide/Formoterol Fumarate 2 puff 08/16/16 22:00 09/01/16 21:49 Symbicort 80/4.5mcg - IH 2 puff BID AMEENA Administration Diphenhydramine HCl 50 mg 08/16/16 22:00 09/01/16 21:48 Benadryl - PO 50 mg HSMR1 PRN Administration FOR ITCHING Docusate Sodium 100 mg 08/16/16 22:00 09/01/16 21:48 Colace - PO 100 mg BID AMEENA Administration Eucalyptus/Menthol/Phenol/Sorbitol 1 each 08/16/16 13:08 Cepastat Lozenge - MM Q4H PRN SORE THROAT Furosemide 40 mg 09/02/16 10:00 Lasix - PO 09/04/16 23:59 DAILY AMEENA Guaifenesin 10 ml 08/16/16 13:08 Robitussin Dm - PO Q6H PRN COUGH Hydroxyzine Pamoate 50 mg 08/16/16 13:08 09/02/16 06:06 Vistaril - PO 50 mg Q4H PRN Administration AGITATION Ibuprofen 400 mg 08/16/16 13:08 Motrin - PO Q6H PRN PAIN Loperamide HCl 4 mg 08/16/16 13:08 Imodium - PO Q6H PRN DIARRHEA Magnesium Hydroxide 30 ml 08/16/16 13:08 Milk Of Magnesia - PO DAILY PRN CONSTIPATION Methadone HCl 80 mg/ Methadone 90 mg 08/29/16 06:00 09/02/16 06:06 HCl 10 mg PO 09/04/16 05:59 90 mg DAILY@0600 AMEENA Administration Montelukast Sodium 10 mg 08/16/16 22:00 09/01/16 21:48 Singulair - PO 10 mg HS AMEENA Administration Nicotine Polacrilex 4 mg 08/16/16 13:08 09/02/16 06:07 Nicorette Gum - BUC 4 mg Q2H PRN Administration NICOTINE REPLACEMENT RX Paroxetine HCl 10 mg 08/17/16 10:00 09/01/16 10:14 Paxil - PO 10 mg DAILY AMEENA Administration Multivit/Folic Acid/Iron 1 tab 08/17/16 10:00 09/01/16 10:14 Vitamins (Sjr) - PO 1 tab DAILY AMEENA Administration Pseudoephedrine/Triprolidine 1 combo 08/16/16 13:08 Actifed - PO TID PRN NASAL CONGESTION Quetiapine Fumarate 100 mg 08/16/16 22:00 09/01/16 21:48 Seroquel - PO 100 mg HS AMEENA Administration Ranitidine HCl 150 mg 08/16/16 22:00 09/01/16 21:48 Zantac - PO 150 mg BID AMEENA Administration Thiamine HCl 100 mg 08/16/16 22:00 09/01/16 21:48 Vitamin B1 - PO 100 mg HS AMEENA Administration Current Side Effect: No Lab tests ordered: Yes Lab tests reviewed: Yes Provider note:: Patient will complete this program on 09/03/16. He has met his treatment goals and will continue to address his issues in half-way treatment at [facility]. He responded well to Paxil 10 mg po daily and Seroquel 100 mg po HS. Scripts for 30 days supply of these medications will be electronically transmitted to [address] [place] [address] Pharmacy at [address] [place] [address]. He is stable for discharge on 09/03/16 Total face to face time:: 35 Mental Status Exam - Mental Status Exam Alert and Oriented to: Time, Place, Person Cognitive Function: Fair Patient Appearance: Well Groomed Mood: Hopeful, Euthymic Affect: Appropriate Patient Behavior: Cooperative Speech Pattern: Clear Voice Loudness: Normal Thought Process: Intact, Goal Oriented Thought Disorder: Not Present Hallucinations: Denies Suicidal Ideation: Denies Homicidal Ideation: Denies Insight/Judgement: Fair Sleep: Fair Appetite: Good Muscle strength/Tone: Normal Gait/Station: Normal Psychiatric Treatment Plan - Problem List (1) Alcohol dependence with uncomplicated withdrawal Current Visit: No (2) Cocaine dependence, uncomplicated Current Visit: No (3) Sedative hypnotic or anxiolytic dependence Current Visit: Yes (4) Opioid dependence on agonist therapy Current Visit: No (5) Nicotine dependence Current Visit: No Qualifiers: Nicotine product type: cigarettes Substance use status: uncomplicated Qualified Code(s): F17.210 - Nicotine dependence, cigarettes, uncomplicated (6) Bipolar II disorder Current Visit: Yes (7) MDD (major depressive disorder) Current Visit: Yes (8) History of hepatitis C virus infection Current Visit: No (9) GERD (gastroesophageal reflux disease) Current Visit: Yes (10) Asthma Current Visit: Yes Initial treatment plan: Patient will be discharged tomorrow and referred to [facility] for half-way treatment
[2016-09-02] MEDS ORDERED: FUROSEMIDE 40 MG TABLET (FP) PO SCH (10:00)
[2016-09-02] MEDS: PRENATAL VITAMINS W/ FOLIC ACID TABLET (FP) PO SCH (10:12)
[2016-09-02] MEDS: DOCUSATE SODIUM 100 MG CAPSULE (FP) PO SCH ×2 (10:12→21:37)
[2016-09-02] MEDS: PARoxetine HCL 10 MG TABLET (FP) PO SCH (10:13)
[2016-09-02] MEDS: RANITIDINE HCL 150 MG TABLET (FP) PO SCH ×2 (10:13→21:37)
[2016-09-02] MEDS: BUDESONIDE/FORMETEROL FUMARATE 80/4.5 mcg INHALER IH SCH ×2 (10:13→21:36)
[2016-09-02 10:31] VITALS: BP 121/71; PULSE 82
[2016-09-02] MEDS: QUEtiapine FUMARATE 100 MG TABLET (FP) PO SCH (21:37)
[2016-09-02] MEDS: MONTELUKAST NA 10 MG TABLET PO SCH (21:37)
[2016-09-02] MEDS: diphenhydrAMINE HCL 50 MG CAPSULE PO PRN (21:37)
[2016-09-02] MEDS: THIAMINE HCL 100 MG TABLET (FP) PO SCH (21:38)
[2016-09-03] MEDS ORDERED: METHADONE HCL 40 MG DISPERSABLE TABLET ONE (04:05)
[2016-09-03] MEDS ORDERED: METHADONE HCL 10 MG TABLET ONE (04:05)
[2016-09-03] MEDS: METHADONE 80 MG, METHADONE 10 MG PO SCH (06:05)
[2016-09-03] MEDS ORDERED: PT OWN MED DRAWER 7, Y5N ONE (06:31)
== END 2016-09-03 06:15 | disposition home or self-care (01) | DRG 895 ==
LOC: YASAS 12:34 → Y3W 12:36
PROVIDERS: ADMIT Psychiatry & Neurology Psychiatry; ATTEND Psychiatry & Neurology Psychiatry
PROC: HZ42ZZZ Group Counseling for Substance Abuse Treatment, Cognitive-Behavioral (ICD-10-PCS; principal; 2016-08-16)
DX: F10.20 Alcohol dependence, uncomplicated (principal); F11.20 Opioid dependence, uncomplicated; F13.20 Sedative, hypnotic or anxiolytic dependence, uncomplicated; F14.20 Cocaine dependence, uncomplicated; F31.81 Bipolar II disorder; F33.9 Major depressive disorder, recurrent, unspecified; F17.210 Nicotine dependence, cigarettes, uncomplicated; B18.2 Chronic viral hepatitis C; K21.9 Gastro-esophageal reflux disease without esophagitis; J45.909 Unspecified asthma, uncomplicated; R60.9 Edema, unspecified

== ENCOUNTER 2017-06-25 19:07 | Inpatient (IN) | payer OTHER ==
[2017-06-25] MEDS ORDERED: MELATONIN 5 MG TABLETS PO PRN (22:00)
[2017-06-25 22:31] VITALS: BMI 36.1
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
[2017-06-25] MEDS ORDERED: chlordiazePOXIDE HCL 25 MG CAPSULE PO PRN (22:59)
[2017-06-25] MEDS ORDERED: MAGNESIUM CITRATE 300 ML BOTTLE PO PRN (22:59)
[2017-06-25] MEDS ORDERED: ACETAMINOPHEN 325 MG TABLET (FP) PO PRN (22:59)
[2017-06-25] MEDS ORDERED: hydrOXYzine PAMOATE 50 MG CAPSULE (FP) PO PRN (22:59)
[2017-06-25] MEDS ORDERED: chlordiazePOXIDE HCL 25 MG CAPSULE PO ONE (22:59)
[2017-06-25] MEDS ORDERED: LOPERAMIDE HCL 2 MG CAPSULE PO PRN (22:59)
[2017-06-25] MEDS ORDERED: MENTHOL/PHENOL 1 EACH UD MM PRN (22:59)
[2017-06-25] MEDS ORDERED: IBUPROFEN 400 MG TABLET (FP) PO PRN (22:59)
[2017-06-25] MEDS ORDERED: P-EPHED 60MG/TRIPROLIDI 2.5MG TABLET PO PRN (22:59)
[2017-06-25] MEDS ORDERED: MAGNESIUM HYDROX 2400MG/30ML ORAL SUSPENSION 30 ML CUP PO PRN (22:59)
[2017-06-25] MEDS ORDERED: guaiFENesin/D-METHORPHAN HB 10 ML UNIT-DOSE CUPS PO PRN (22:59)
[2017-06-26] MEDS: chlordiazePOXIDE HCL 25 MG CAPSULE PO SCH ×5 (01:29→22:07)
[2017-06-26] MEDS ORDERED: METHADONE HCL 10 MG TABLET PO ONE (08:56)
--- NOTE | 2017-06-26 09:32 | EKG ---
Test Reason : Blood Pressure : / mmHG Vent. Rate : 064 BPM Atrial Rate : 064 BPM P-R Int : 136 ms QRS Dur : 088 ms QT Int : 422 ms P-R-T Axes : 058 017 030 degrees QTc Int : 435 ms NORMAL SINUS RHYTHM POSSIBLE LEFT ATRIAL ENLARGEMENT LEFT VENTRICULAR HYPERTROPHY ABNORMAL ECG WHEN COMPARED WITH ECG OF 13-AUG-2016 05:14, NO SIGNIFICANT CHANGE WAS FOUND Confirmed by AINSLEY SIMEON MD ([id number]) on 06/26/2017 9:32:47 AM Referred By: Confirmed By:AINSLEY SIMEON MD
[2017-06-26] MEDS ORDERED: METHADONE 80 MG, METHADONE 30 MG PO ONE (09:35)
[2017-06-26 09:56] LABS: ALBUMIN 3.8 g/dl (3.4-5.0); ANION GAP 9 (8-16); BLOOD UREA NITROGEN 17 mg/dL (7-18); CHLORIDE 100 mmol/L (98-107); CO2 31 mmol/L (21-32); CREATININE 0.8 mg/dL (0.7-1.3); GLUCOSE,RANDOM 61 mg/dL (74-106); POTASSIUM 3.5 mmol/L (3.5-5.1); SGOT/AST 28 U/L (15-37); SGPT/ALT 51 U/L (12-78); SODIUM 140 mmol/L (136-145)
[2017-06-26] MEDS ORDERED: METHADONE HCL 10 MG TABLET ONE (09:56)
[2017-06-26] MEDS ORDERED: METHADONE HCL 40 MG DISPERSABLE TABLET ONE (09:56)
[2017-06-26 09:57] LABS: ALK PHOS 110 U/L (45-117); BILIRUBIN,TOTAL 0.2 mg/dL (0.2-1.0); TOT PROT 7.7 g/dl (6.4-8.2)
[2017-06-26] MEDS: PRENATAL VITAMINS W/ FOLIC ACID TABLET (FP) PO SCH (09:58)
[2017-06-26] MEDS: MAG HYDROX/AL HYDROX/SIMETH 30 ML UNIT-DOSE CUP PO PRN (10:02)
[2017-06-26 10:08] LABS: HEMATOCRIT 42.3 % (35.4-49); HEMOGLOBIN 13.5 GM/dL (11.7-16.9); MCH 28.6 pg (25.7-33.7); MEAN CELL VOLUME 89.5 fl (80-96); MEAN PLT VOLUME 9.8 fl (7.5-11.1); PLATELET COUNT 200 K/MM3 (134-434); RBC 4.73 M/mm3 (4.00-5.60); RDW 13.4 % (11.9-15.9); WHITE BLOOD COUNT 14.7 K/mm3 (4.0-10.0)
--- NOTE | 2017-06-26 11:02 | PN ---
[facility] CIWA - CIWA Score Nausea/Vomitin-No Nausea/No Vomiting Muscle Tremors: 4-Moderate,w/Arms Extend Anxiety: 4-Mod. Anxious/Guarded Agitation: 3 Paroxysmal Sweats: 1-Minimal Palms Moist Orientation: 0-Oriented Tacttile Disturbances: 0-None Auditory Disturbances: 0-None Visual Disturbances: 0-None Headache: 0-None Present CIWA-Ar Total Score: 12 BHS Progress Note (SOAP) Subjective: ANXIETY,SWEATS,RESTLESSNESS,HX GERD-TAKES ZANTAC. Objective: 06/26/17 11:01 Vital Signs Temperature 96.2 F L 06/26/17 06:22 Pulse Rate 57 L 06/26/17 06:22 Respiratory Rate 18 06/26/17 06:22 Blood Pressure 120/79 06/26/17 06:22 O2 Sat by Pulse Oximetry (%) Laboratory Last Values WBC 14.7 K/mm3 (4.0-10.0) H D 06/26/17 08:00 RBC 4.73 M/mm3 (4.00-5.60) 06/26/17 08:00 Hgb 13.5 GM/dL (11.7-16.9) D 06/26/17 08:00 Hct 42.3 % (35.4-49) 06/26/17 08:00 MCV 89.5 fl (80-96) 06/26/17 08:00 MCH 28.6 pg (25.7-33.7) 06/26/17 08:00 MCHC 32.0 g/dl (32.0-35.9) 06/26/17 08:00 RDW 13.4 % (11.9-15.9) 06/26/17 08:00 Plt Count 200 K/MM3 (134-434) 06/26/17 08:00 MPV 9.8 fl (7.5-11.1) 06/26/17 08:00 Sodium 140 mmol/L (136-145) 06/26/17 08:00 Potassium 3.5 mmol/L (3.5-5.1) 06/26/17 08:00 Chloride 100 mmol/L (98-107) 06/26/17 08:00 Carbon Dioxide 31 mmol/L (21-32) 06/26/17 08:00 Anion Gap 9 (8-16) 06/26/17 08:00 BUN 17 mg/dL (7-18) D 06/26/17 08:00 Creatinine 0.8 mg/dL (0.7-1.3) 06/26/17 08:00 Creat Clearance w eGFR > 60 (>60) 06/26/17 08:00 Random Glucose 61 mg/dL (74-106) L D 06/26/17 08:00 Calcium 9.0 mg/dL (8.5-10.1) 06/26/17 08:00 Total Bilirubin 0.2 mg/dL (0.2-1.0) D 06/26/17 08:00 AST 28 U/L (15-37) D 06/26/17 08:00 ALT 51 U/L (12-78) 06/26/17 08:00 Alkaline Phosphatase 110 U/L (45-117) 06/26/17 08:00 Total Protein 7.7 g/dl (6.4-8.2) 06/26/17 08:00 Albumin 3.8 g/dl (3.4-5.0) 06/26/17 08:00 Assessment: 06/26/17 11:01 WITHDRAWAL SX Plan: CONTINUE DETOX RESTART ZANTAC
[2017-06-26] MEDS: RANITIDINE HCL 150 MG TABLET (FP) PO SCH ×2 (12:03→22:07)
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
[2017-06-26 17:34] LABS: URINE APPEARANCE CLEAR; URINE BILIRUBIN NEGATIVE (<2.0 mg/dL); URINE COLOR YELLOW; URINE GLUCOSE (UA) NEGATIVE (NEGATIVE); URINE KETONE NEGATIVE (NEGATIVE); URINE NITRITE NEGATIVE (NEGATIVE); URINE PROTEIN NEGATIVE (NEGATIVE)
[2017-06-26 17:38] LABS: URINE LEUK ESTERASE 1+ (NEGATIVE)
[2017-06-26 17:39] LABS: EPI CELLS RARE /HPF (FEW); URINE MUCUS MODERATE
[2017-06-26] MEDS: THIAMINE HCL 100 MG TABLET (FP) PO SCH (22:07)
[2017-06-26] MEDS: QUEtiapine FUMARATE 100 MG TABLET (FP) PO SCH (22:08)
[2017-06-27] MEDS ORDERED: METHADONE HCL 10 MG TABLET ONE (04:31)
[2017-06-27] MEDS ORDERED: METHADONE HCL 40 MG DISPERSABLE TABLET ONE (04:31)
[2017-06-27] MEDS: METHADONE 80 MG, METHADONE 30 MG PO SCH (05:58)
[2017-06-27] MEDS: chlordiazePOXIDE HCL 25 MG CAPSULE PO SCH ×3 (05:59→17:17)
[2017-06-27] MEDS ORDERED: METHADONE HCL 10 MG TABLET PO SCH (06:00)
[2017-06-27] MEDS: MAG HYDROX/AL HYDROX/SIMETH 30 ML UNIT-DOSE CUP PO PRN (06:01)
[2017-06-27] MEDS: RANITIDINE HCL 150 MG TABLET (FP) PO SCH ×2 (10:23→22:03)
[2017-06-27] MEDS: PRENATAL VITAMINS W/ FOLIC ACID TABLET (FP) PO SCH (10:23)
[2017-06-27] MEDS: PARoxetine HCL 10 MG TABLET (FP) PO SCH (10:23)
[2017-06-27] MEDS ORDERED: TRIMETHOBENZAMIDE HCL 200MG/2ML INJ IM PRN (12:34)
--- NOTE | 2017-06-27 17:21 | PN ---
S CIWA - CIWA Score Nausea/Vomitin Muscle Tremors: 3 Anxiety: 4-Mod. Anxious/Guarded Agitation: 3 Paroxysmal Sweats: 2 Orientation: 0-Oriented Tacttile Disturbances: 1-Very Mild Itch/Numbness Auditory Disturbances: 0-None Visual Disturbances: 0-None Headache: 0-None Present CIWA-Ar Total Score: 16 BHS Progress Note (SOAP) Subjective: Nausea, Anxious, Tremors, Body Aches, Sweating. Objective: PATIENT A & O X 3, OBSERVED AMBULATING ON UNIT. NO ACUTE DISTRESS. 06/27/17 17:20 Vital Signs Temperature 96.8 F L 06/27/17 15:25 Pulse Rate 64 06/27/17 15:25 Respiratory Rate 18 06/27/17 15:25 Blood Pressure 110/74 06/27/17 15:25 O2 Sat by Pulse Oximetry (%) Laboratory Tests 06/26/17 06/26/17 06/26/17 08:00 08:00 08:00 WBC 14.7 H D RBC 4.73 Hgb 13.5 D Hct 42.3 MCV 89.5 MCH 28.6 MCHC 32.0 RDW 13.4 Plt Count 200 MPV 9.8 Sodium 140 Potassium 3.5 Chloride 100 Carbon Dioxide 31 Anion Gap 9 BUN 17 D Creatinine 0.8 Creat Clearance w eGFR > 60 Random Glucose 61 L D Calcium 9.0 Total Bilirubin 0.2 D AST 28 D ALT 51 Alkaline Phosphatase 110 Total Protein 7.7 Albumin 3.8 Urine Color Urine Appearance Urine pH Ur Specific [place] Urine Protein Urine Glucose (UA) Urine Ketones Urine Blood Urine Nitrite Urine Bilirubin Urine Urobilinogen Ur Leukocyte Esterase Urine WBC (Auto) Urine RBC (Auto) Ur Epithelial Cells Urine Mucus RPR Titer Nonreactive 06/26/17 14:00 WBC RBC Hgb Hct MCV MCH MCHC RDW Plt Count MPV Sodium Potassium Chloride Carbon Dioxide Anion Gap BUN Creatinine Creat Clearance w eGFR Random Glucose Calcium Total Bilirubin AST ALT Alkaline Phosphatase Total Protein Albumin Urine Color Yellow Urine Appearance Clear Urine pH 6.0 Ur Specific [place] 1.027 Urine Protein Negative Urine Glucose (UA) Negative Urine Ketones Negative Urine Blood Negative Urine Nitrite Negative Urine Bilirubin Negative Urine Urobilinogen 2.0 Ur Leukocyte Esterase 1+ H Urine WBC (Auto) 1 Urine RBC (Auto) None Ur Epithelial Cells Rare Urine Mucus Moderate RPR Titer LABS NOTED. Assessment: 06/27/17 17:20 WITHDRAWAL SYMPTOMS. Plan: CONTINUE DETOX. INCREASE DAILY PO FLUID INTAKE.
[2017-06-27] MEDS: chlordiazePOXIDE 5 MG CAPSULE PO SCH (22:03)
[2017-06-27] MEDS: THIAMINE HCL 100 MG TABLET (FP) PO SCH (22:03)
[2017-06-27] MEDS: QUEtiapine FUMARATE 100 MG TABLET (FP) PO SCH (22:03)
[2017-06-28] MEDS ORDERED: METHADONE HCL 10 MG TABLET ONE (04:06)
[2017-06-28] MEDS ORDERED: METHADONE HCL 40 MG DISPERSABLE TABLET ONE (04:06)
[2017-06-28] MEDS: METHADONE 80 MG, METHADONE 30 MG PO SCH (05:39)
[2017-06-28] MEDS: chlordiazePOXIDE 5 MG CAPSULE PO SCH ×3 (05:40→17:19)
[2017-06-28] MEDS: MAG HYDROX/AL HYDROX/SIMETH 30 ML UNIT-DOSE CUP PO PRN (07:41)
[2017-06-28] MEDS: RANITIDINE HCL 150 MG TABLET (FP) PO SCH ×2 (10:11→22:10)
[2017-06-28] MEDS: PARoxetine HCL 10 MG TABLET (FP) PO SCH (10:11)
[2017-06-28] MEDS: PRENATAL VITAMINS W/ FOLIC ACID TABLET (FP) PO SCH (10:11)
--- NOTE | 2017-06-28 12:08 | PN ---
BHS Progress Note (SOAP) Subjective: sweats interrupted sleep Objective: 06/28/17 12:08 Vital Signs Temperature 95.6 F L 06/28/17 09:59 Pulse Rate 64 06/28/17 09:59 Respiratory Rate 18 06/28/17 09:59 Blood Pressure 139/84 06/28/17 09:59 O2 Sat by Pulse Oximetry (%) aaox3 ambulating no acute distress Assessment: 06/28/17 12:08 withdrawal sx Plan: continue detox increase fluids d/c in am
[2017-06-28] MEDS: NICOTINE POLACRILEX 4 MG GUM BUC PRN ×2 (15:04→17:21)
[2017-06-28] MEDS: THIAMINE HCL 100 MG TABLET (FP) PO SCH (22:09)
[2017-06-28] MEDS: QUEtiapine FUMARATE 100 MG TABLET (FP) PO SCH (22:10)
[2017-06-28] MEDS: chlordiazePOXIDE HCL 10 MG CAPSULE PO SCH (23:17)
[2017-06-29] MEDS ORDERED: METHADONE HCL 10 MG TABLET ONE (03:04)
[2017-06-29] MEDS ORDERED: METHADONE HCL 40 MG DISPERSABLE TABLET ONE (03:04)
[2017-06-29] MEDS: chlordiazePOXIDE HCL 10 MG CAPSULE PO SCH ×3 (05:26→17:25)
[2017-06-29] MEDS: METHADONE 80 MG, METHADONE 30 MG PO SCH (05:26)
[2017-06-29] MEDS: NICOTINE POLACRILEX 4 MG GUM BUC PRN ×2 (05:47→09:16)
[2017-06-29] MEDS: RANITIDINE HCL 150 MG TABLET (FP) PO SCH (10:24)
[2017-06-29] MEDS: PARoxetine HCL 10 MG TABLET (FP) PO SCH (10:24)
[2017-06-29] MEDS: PRENATAL VITAMINS W/ FOLIC ACID TABLET (FP) PO SCH (10:24)
--- NOTE | 2017-06-29 10:57 | DS ---
[facility] Detox Discharge Summary Admission Date: 06/25/17 Discharge Date: 06/29/17 - History Present History: Sedative Dependence, MMTP Additional Comments: DETOX COMPLETED. ALLERT O X 3. NAD. PT IS CURRENTLY AT [facility] AND STATES HAS PCP THERE. Pertinent Past History: PLEASE SEE DX BELOW - Physical Exam Results Vital Signs: Vital Signs Temperature 96.4 F L 06/29/17 09:14 Pulse Rate 72 06/29/17 09:14 Respiratory Rate 18 06/29/17 09:14 Blood Pressure 115/73 06/29/17 09:14 O2 Sat by Pulse Oximetry (%) Pertinent Admission Physical Exam Findings: WITHDRAWAL SX Laboratory Last Values WBC 14.7 K/mm3 (4.0-10.0) H D 06/26/17 08:00 RBC 4.73 M/mm3 (4.00-5.60) 06/26/17 08:00 Hgb 13.5 GM/dL (11.7-16.9) D 06/26/17 08:00 Hct 42.3 % (35.4-49) 06/26/17 08:00 MCV 89.5 fl (80-96) 06/26/17 08:00 MCH 28.6 pg (25.7-33.7) 06/26/17 08:00 MCHC 32.0 g/dl (32.0-35.9) 06/26/17 08:00 RDW 13.4 % (11.9-15.9) 06/26/17 08:00 Plt Count 200 K/MM3 (134-434) 06/26/17 08:00 MPV 9.8 fl (7.5-11.1) 06/26/17 08:00 Sodium 140 mmol/L (136-145) 06/26/17 08:00 Potassium 3.5 mmol/L (3.5-5.1) 06/26/17 08:00 Chloride 100 mmol/L (98-107) 06/26/17 08:00 Carbon Dioxide 31 mmol/L (21-32) 06/26/17 08:00 Anion Gap 9 (8-16) 06/26/17 08:00 BUN 17 mg/dL (7-18) D 06/26/17 08:00 Creatinine 0.8 mg/dL (0.7-1.3) 06/26/17 08:00 Creat Clearance w eGFR > 60 (>60) 06/26/17 08:00 Random Glucose 61 mg/dL (74-106) L D 06/26/17 08:00 Calcium 9.0 mg/dL (8.5-10.1) 06/26/17 08:00 Total Bilirubin 0.2 mg/dL (0.2-1.0) D 06/26/17 08:00 AST 28 U/L (15-37) D 06/26/17 08:00 ALT 51 U/L (12-78) 06/26/17 08:00 Alkaline Phosphatase 110 U/L (45-117) 06/26/17 08:00 Total Protein 7.7 g/dl (6.4-8.2) 06/26/17 08:00 Albumin 3.8 g/dl (3.4-5.0) 06/26/17 08:00 Urine Color Yellow 06/26/17 14:00 Urine Appearance Clear 06/26/17 14:00 Urine pH 6.0 (5.0-8.0) 06/26/17 14:00 Ur Specific [place] 1.027 (1.001-1.035) 06/26/17 14:00 Urine Protein Negative (NEGATIVE) 06/26/17 14:00 Urine Glucose (UA) Negative (NEGATIVE) 06/26/17 14:00 Urine Ketones Negative (NEGATIVE) 06/26/17 14:00 Urine Blood Negative (NEGATIVE) 06/26/17 14:00 Urine Nitrite Negative (NEGATIVE) 06/26/17 14:00 Urine Bilirubin Negative (<2.0 mg/dL) 06/26/17 14:00 Urine Urobilinogen 2.0 mg/dL (0.2-1.0) 06/26/17 14:00 Ur Leukocyte Esterase 1+ (NEGATIVE) H 06/26/17 14:00 Urine WBC (Auto) 1 /hpf (3-5) 06/26/17 14:00 Urine RBC (Auto) None /hpf (0-3) 06/26/17 14:00 Ur Epithelial Cells Rare /HPF (FEW) 06/26/17 14:00 Urine Mucus Moderate 06/26/17 14:00 RPR Titer Nonreactive (NONREACTIVE) 06/26/17 08:00 - Treatment Hospital Course: Detox Protocol Followed, Detoxed Safely, Responded well, Discharged Condition Good - Medication Discharge Medications: Ambulatory Orders Albuterol Sulfate Inhaler - [Ventolin Hfa Inhaler -] 2 inh PO Q4H PRN 06/10/16 Montelukast Na [Singulair -] 10 mg PO HS 06/10/16 Ranitidine HCl [Zantac] 150 mg PO BID 06/10/16 hydrOXYzine HCL [Atarax -] 50 mg PO BID PRN 06/10/16 Salmeterol/Fluticasone [Advair 250Mcg/50Mcg] 1 inh PO BID 08/12/16 Paroxetine HCl [Paxil -] 10 mg PO DAILY #30 tablet 08/13/16 Quetiapine Fumarate [Seroquel] 100 mg PO HS #30 tablet 08/13/16 Albuterol Sulfate Inhaler - [Ventolin HFA Inhaler -] 2 puff IH Q4H PRN #1 inhaler 09/02/16 Budesonide/Formeterol Fumarate [SYMBICORT 80/4.5mcg -] 2 puff IH BID #1 inhaler 09/02/16 Docusate Sodium [Colace -] 100 mg PO BID #60 cap 09/02/16 Furosemide [Lasix -] 40 mg PO DAILY #30 tablet 09/02/16 Montelukast Na [Singulair -] 10 mg PO HS #30 tablet 09/02/16 Paroxetine HCl [Paxil] 10 mg PO DAILY #30 ml 09/02/16 Quetiapine Fumarate [Seroquel] 100 mg PO HS #30 tablet 09/02/16 Paroxetine HCl [Paxil] 10 mg PO DAILY #30 tablet 06/26/17 Quetiapine Fumarate [Seroquel] 100 mg PO HS #30 tablet 06/26/17 - Diagnosis (1) Sedative, hypnotic or anxiolytic dependence with withdrawal, uncomplicated Current Visit: Yes Status: Acute (2) Asthma Current Visit: Yes Status: Chronic Qualifiers: Asthma severity: mild Asthma persistence: unspecified Asthma complication type: uncomplicated Qualified Code(s): J45.909 - Unspecified asthma, uncomplicated (3) GERD (gastroesophageal reflux disease) Current Visit: Yes Status: Chronic Qualifiers: Esophagitis presence: without esophagitis Qualified Code(s): K21.9 - Gastro -esophageal reflux disease without esophagitis (4) Methadone maintenance therapy patient Current Visit: Yes Status: Chronic (5) History of hepatitis C virus infection Current Visit: Yes Status: Chronic (6) Nicotine dependence Current Visit: Yes Status: Acute Qualifiers: Nicotine product type: cigarettes Substance use status: in withdrawal Qualified Code(s): F17.213 - Nicotine dependence, cigarettes, with withdrawal (7) History of seizures Current Visit: Yes Status: Suspected (8) Alcohol dependence with uncomplicated withdrawal Current Visit: Yes Status: Acute - AMA Did Patient Leave Against Medical Advice: No
[2017-06-29 18:37] VITALS: BP 118/75; PULSE 80; TEMP 98.7
== END 2017-06-29 18:31 | disposition home or self-care (01) | DRG 897 ==
LOC: YASAS 19:07 → Y3N 23:17
PROVIDERS: ADMIT Internal Medicine; ATTEND Internal Medicine
PROC: HZ2ZZZZ Detoxification Services for Substance Abuse Treatment (ICD-10-PCS; principal; 2017-06-25)
DX: F11.20 Opioid dependence, uncomplicated (principal); F13.230 Sedative, hypnotic or anxiolytic dependence with withdrawal, uncomplicated; F10.230 Alcohol dependence with withdrawal, uncomplicated; F17.213 Nicotine dependence, cigarettes, with withdrawal; F31.81 Bipolar II disorder; F19.24 Other psychoactive substance dependence with psychoactive substance-induced mood disorder; J45.909 Unspecified asthma, uncomplicated; B18.2 Chronic viral hepatitis C; M12.9 Arthropathy, unspecified; Z86.69 Personal history of other diseases of the nervous system and sense organs; Z96.641 Presence of right artificial hip joint; Z91.5 Personal history of self-harm; Z59.0 Homelessness
CPT/HCPCS: 36415; 80053; 81003; 81015; 85027; 86593; 93005; 93010

== ENCOUNTER 2017-06-29 19:04 | Inpatient (IN) | payer OTHER ==
[2017-06-29] MEDS ORDERED: IBUPROFEN 400 MG TABLET (FP) PO PRN (20:49)
[2017-06-29] MEDS ORDERED: P-EPHED 60MG/TRIPROLIDI 2.5MG TABLET PO PRN (20:49)
[2017-06-29] MEDS ORDERED: ACETAMINOPHEN 325 MG TABLET (FP) PO PRN (20:49)
[2017-06-29] MEDS ORDERED: MENTHOL/PHENOL 1 EACH UD MM PRN (20:49)
[2017-06-29] MEDS ORDERED: ALBUTEROL SO4 18 GM HFA INHALER IH PRN (20:49)
[2017-06-29] MEDS ORDERED: LOPERAMIDE HCL 2 MG CAPSULE PO PRN (20:51)
[2017-06-29] MEDS ORDERED: hydrOXYzine PAMOATE 50 MG CAPSULE (FP) PO PRN (20:51)
[2017-06-29] MEDS ORDERED: guaiFENesin/D-METHORPHAN HB 10 ML UNIT-DOSE CUPS PO PRN (20:51)
[2017-06-29] MEDS ORDERED: MAGNESIUM CITRATE 300 ML BOTTLE PO PRN (20:51)
[2017-06-29] MEDS ORDERED: MAGNESIUM HYDROX 2400MG/30ML ORAL SUSPENSION 30 ML CUP PO PRN (20:51)
--- NOTE | 2017-06-29 20:52 | HP ---
[facility] Rehab Assess/Revision - Admission History Admitted to Rehab from: [facility] Date of Admission to Rehab: 06/29/17 - Findings Detox History & Physical reviewed: Yes Concur with findings: Yes Inpatient Rehab Admission - Initial Determination Are CD services needed?: Yes Free of communicable disease: Yes Not in need of hospitalization: Yes - Rehab Admission Criteria Previous failed treatment: Yes Poor recovery environment: Yes Comorbidities: Yes Lacks judgement: Yes Patient is meeting Inpatient Rehab admission criteria:: Yes
[2017-06-29] MEDS: DOCUSATE SODIUM 100 MG CAPSULE (FP) PO SCH (21:13)
[2017-06-29] MEDS: RANITIDINE HCL 150 MG TABLET (FP) PO SCH (21:13)
[2017-06-29] MEDS: MONTELUKAST NA 10 MG TABLET PO SCH (21:13)
[2017-06-29] MEDS: THIAMINE HCL 100 MG TABLET (FP) PO SCH (21:14)
[2017-06-29] MEDS: BUDESONIDE/FORMETEROL FUMARATE 80/4.5 mcg INHALER IH SCH (21:15)
[2017-06-29] MEDS ORDERED: MELATONIN 5 MG TABLETS PO PRN (22:00)
[2017-06-29] MEDS ORDERED: QUEtiapine FUMARATE 100 MG TABLET (FP) PO SCH (23:00)
[2017-06-30] MEDS ORDERED: METHADONE HCL 10 MG TABLET PO SCH (06:00)
[2017-06-30] MEDS ORDERED: METHADONE HCL 40 MG DISPERSABLE TABLET ONE (06:06)
[2017-06-30] MEDS ORDERED: METHADONE HCL 10 MG TABLET ONE (06:06)
[2017-06-30] MEDS: METHADONE 80 MG, METHADONE 30 MG PO SCH (06:16)
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
[2017-06-30] MEDS: MAG HYDROX/AL HYDROX/SIMETH 30 ML UNIT-DOSE CUP PO PRN (09:22)
[2017-06-30] MEDS: RANITIDINE HCL 150 MG TABLET (FP) PO SCH ×2 (09:23→21:02)
[2017-06-30] MEDS: PARoxetine HCL 10 MG TABLET (FP) PO SCH (09:23)
[2017-06-30] MEDS: DOCUSATE SODIUM 100 MG CAPSULE (FP) PO SCH ×2 (09:23→21:02)
[2017-06-30] MEDS: BUDESONIDE/FORMETEROL FUMARATE 80/4.5 mcg INHALER IH SCH ×2 (09:24→21:03)
[2017-06-30] MEDS: PRENATAL VITAMINS W/ FOLIC ACID TABLET (FP) PO SCH (09:24)
[2017-06-30] MEDS: FUROSEMIDE 40 MG TABLET (FP) PO SCH (09:24)
[2017-06-30] MEDS: NICOTINE POLACRILEX 2 MG GUM BUC PRN ×2 (09:25→14:36)
[2017-06-30] MEDS: GABAPENTIN 100 MG CAPSULE (FP) PO SCH ×2 (14:34→21:02)
[2017-06-30] MEDS: THIAMINE HCL 100 MG TABLET (FP) PO SCH (21:01)
[2017-06-30] MEDS: MONTELUKAST NA 10 MG TABLET PO SCH (21:02)
[2017-06-30] MEDS: QUEtiapine FUMARATE 100 MG TABLET (FP) PO SCH (21:02)
[2017-06-30] MEDS ORDERED: QUEtiapine FUMARATE 100 MG TABLET (FP) PO SCH ×2 (22:00)
[2017-07-01] MEDS ORDERED: METHADONE HCL 40 MG DISPERSABLE TABLET ONE (03:14)
[2017-07-01] MEDS ORDERED: METHADONE HCL 10 MG TABLET ONE (03:14)
[2017-07-01] MEDS: GABAPENTIN 100 MG CAPSULE (FP) PO SCH ×3 (06:07→21:06)
[2017-07-01] MEDS: METHADONE 80 MG, METHADONE 30 MG PO SCH (06:07)
[2017-07-01] MEDS: RANITIDINE HCL 150 MG TABLET (FP) PO SCH ×2 (09:33→21:06)
[2017-07-01] MEDS: FUROSEMIDE 40 MG TABLET (FP) PO SCH (09:33)
[2017-07-01] MEDS: PRENATAL VITAMINS W/ FOLIC ACID TABLET (FP) PO SCH (09:33)
[2017-07-01] MEDS: DOCUSATE SODIUM 100 MG CAPSULE (FP) PO SCH ×2 (09:33→21:06)
[2017-07-01] MEDS: PARoxetine HCL 10 MG TABLET (FP) PO SCH (09:33)
[2017-07-01] MEDS: BUDESONIDE/FORMETEROL FUMARATE 80/4.5 mcg INHALER IH SCH ×2 (09:35→21:06)
[2017-07-01] MEDS: NICOTINE POLACRILEX 2 MG GUM BUC PRN ×3 (09:36→20:12)
--- NOTE | 2017-07-01 14:55 | PN ---
[facility] Progress Note Note: Patient presents with dry, scratchy throat. Denies fever, cough and heartburn. Pt has history of tobacco use. Reports runny nose. Exam: +nasal congestion, pharynx pink and no exudate present. A/P allergic rhinitis: Will continue current decongestant as ordered and continue to monitor clinically.
[2017-07-01] MEDS: THIAMINE HCL 100 MG TABLET (FP) PO SCH (21:05)
[2017-07-01] MEDS: QUEtiapine FUMARATE 100 MG TABLET (FP) PO SCH (21:06)
[2017-07-01] MEDS: MONTELUKAST NA 10 MG TABLET PO SCH (21:06)
[2017-07-02] MEDS ORDERED: METHADONE HCL 10 MG TABLET ONE (03:15)
[2017-07-02] MEDS ORDERED: METHADONE HCL 40 MG DISPERSABLE TABLET ONE (03:16)
[2017-07-02] MEDS: METHADONE 80 MG, METHADONE 30 MG PO SCH (06:12)
[2017-07-02] MEDS: GABAPENTIN 100 MG CAPSULE (FP) PO SCH ×3 (06:12→21:33)
[2017-07-02] MEDS: NICOTINE POLACRILEX 2 MG GUM BUC PRN ×4 (06:15→22:13)
[2017-07-02] MEDS: PARoxetine HCL 10 MG TABLET (FP) PO SCH (09:34)
[2017-07-02] MEDS: FUROSEMIDE 40 MG TABLET (FP) PO SCH (09:34)
[2017-07-02] MEDS: RANITIDINE HCL 150 MG TABLET (FP) PO SCH ×2 (09:34→21:33)
[2017-07-02] MEDS: DOCUSATE SODIUM 100 MG CAPSULE (FP) PO SCH ×2 (09:34→21:33)
[2017-07-02] MEDS: PRENATAL VITAMINS W/ FOLIC ACID TABLET (FP) PO SCH (09:34)
[2017-07-02] MEDS: BUDESONIDE/FORMETEROL FUMARATE 80/4.5 mcg INHALER IH SCH ×2 (09:37→21:34)
[2017-07-02] MEDS: MAG HYDROX/AL HYDROX/SIMETH 30 ML UNIT-DOSE CUP PO PRN (19:47)
[2017-07-02] MEDS: THIAMINE HCL 100 MG TABLET (FP) PO SCH (21:32)
[2017-07-02] MEDS: QUEtiapine FUMARATE 100 MG TABLET (FP) PO SCH (21:33)
[2017-07-02] MEDS: MONTELUKAST NA 10 MG TABLET PO SCH (21:33)
[2017-07-03] MEDS ORDERED: METHADONE HCL 10 MG TABLET ONE (03:15)
[2017-07-03] MEDS ORDERED: METHADONE HCL 40 MG DISPERSABLE TABLET ONE (03:16)
[2017-07-03] MEDS: METHADONE 80 MG, METHADONE 30 MG PO SCH (06:21)
[2017-07-03] MEDS: GABAPENTIN 100 MG CAPSULE (FP) PO SCH ×3 (06:21→23:14)
[2017-07-03] MEDS: NICOTINE POLACRILEX 2 MG GUM BUC PRN ×3 (06:22→14:19)
[2017-07-03] MEDS: PARoxetine HCL 10 MG TABLET (FP) PO SCH (09:19)
[2017-07-03] MEDS: RANITIDINE HCL 150 MG TABLET (FP) PO SCH ×2 (09:19→23:15)
[2017-07-03] MEDS: PRENATAL VITAMINS W/ FOLIC ACID TABLET (FP) PO SCH (09:19)
[2017-07-03] MEDS: DOCUSATE SODIUM 100 MG CAPSULE (FP) PO SCH ×2 (09:19→23:14)
[2017-07-03] MEDS: FUROSEMIDE 40 MG TABLET (FP) PO SCH (09:21)
[2017-07-03] MEDS: BUDESONIDE/FORMETEROL FUMARATE 80/4.5 mcg INHALER IH SCH ×2 (09:22→23:14)
[2017-07-03] MEDS ORDERED: SIMETHICONE 40 MG/0.6 ML BOTTLE PO PRN (15:12)
--- NOTE | 2017-07-03 15:21 | PN ---
S Progress Note Note: Notified by staff patient c/o bloating and indigestion. Denies n/v/d. Received Citroma today for constipation. Vital Signs Temperature 97.4 F L 07/03/17 06:56 Pulse Rate 76 07/03/17 06:56 Respiratory Rate 18 07/03/17 06:56 Blood Pressure 119/71 07/03/17 06:56 O2 Sat by Pulse Oximetry (%) Obj: Skin: skin warm and dry Car: S1S2, RRR. Resp: CTA BL GI: BS+, +mild distention, +epigastric burning sensation A/P: Pt on Zantac 150mg BID D/C Mylanta as it does not help as per pt will order simethicone 80mg QID continue to monitor clinically
[2017-07-03] MEDS: SIMETHICONE 80 MG TAB.CHEW (FP) PO PRN (15:46)
--- NOTE | 2017-07-03 17:32 | PN ---
[facility] Progress Note Note: Notified by staff pt. continues to complain of abdominal pain despite treatment with Mylicon. States he wants to go to ER for evaluation. Vital Signs Temperature 97.4 F L 07/03/17 06:56 Pulse Rate 76 07/03/17 06:56 Respiratory Rate 18 07/03/17 06:56 Blood Pressure 119/71 07/03/17 06:56 O2 Sat by Pulse Oximetry (%) Obj: Skin: moist, warm and intact. Car: S1S2 Resp: CTA BL GI: mild distention, BS+, +epigastric tenderness. A/P: Abdominal pain Transfer to ER for evaluation Report given to ROSANNE Yang
[2017-07-03] MEDS: THIAMINE HCL 100 MG TABLET (FP) PO SCH (23:14)
[2017-07-03] MEDS: QUEtiapine FUMARATE 100 MG TABLET (FP) PO SCH (23:14)
[2017-07-03] MEDS: MONTELUKAST NA 10 MG TABLET PO SCH (23:14)
[2017-07-04] MEDS ORDERED: METHADONE HCL 40 MG DISPERSABLE TABLET ONE (03:23)
[2017-07-04] MEDS ORDERED: METHADONE HCL 10 MG TABLET ONE (03:23)
[2017-07-04] MEDS: GABAPENTIN 100 MG CAPSULE (FP) PO SCH ×3 (06:41→21:09)
[2017-07-04] MEDS: METHADONE 80 MG, METHADONE 30 MG PO SCH (06:41)
[2017-07-04] MEDS: NICOTINE POLACRILEX 2 MG GUM BUC PRN ×5 (06:42→22:19)
[2017-07-04] MEDS: PARoxetine HCL 10 MG TABLET (FP) PO SCH (09:38)
[2017-07-04] MEDS: FUROSEMIDE 40 MG TABLET (FP) PO SCH (09:38)
[2017-07-04] MEDS: BUDESONIDE/FORMETEROL FUMARATE 80/4.5 mcg INHALER IH SCH ×2 (09:38→21:09)
[2017-07-04] MEDS: DOCUSATE SODIUM 100 MG CAPSULE (FP) PO SCH ×2 (09:38→21:09)
[2017-07-04] MEDS: PRENATAL VITAMINS W/ FOLIC ACID TABLET (FP) PO SCH (09:38)
[2017-07-04] MEDS: RANITIDINE HCL 150 MG TABLET (FP) PO SCH ×2 (09:38→21:08)
[2017-07-04] MEDS: MONTELUKAST NA 10 MG TABLET PO SCH (21:09)
[2017-07-04] MEDS: QUEtiapine FUMARATE 100 MG TABLET (FP) PO SCH (21:09)
[2017-07-04] MEDS: THIAMINE HCL 100 MG TABLET (FP) PO SCH (21:10)
[2017-07-05] MEDS ORDERED: METHADONE HCL 10 MG TABLET ONE (05:10)
[2017-07-05] MEDS ORDERED: METHADONE HCL 40 MG DISPERSABLE TABLET ONE (05:11)
[2017-07-05] MEDS: GABAPENTIN 100 MG CAPSULE (FP) PO SCH ×3 (05:56→21:08)
[2017-07-05] MEDS: METHADONE 80 MG, METHADONE 30 MG PO SCH (05:56)
[2017-07-05] MEDS: NICOTINE POLACRILEX 2 MG GUM BUC PRN ×5 (05:58→21:10)
[2017-07-05] MEDS: DOCUSATE SODIUM 100 MG CAPSULE (FP) PO SCH ×2 (09:26→21:08)
[2017-07-05] MEDS: BUDESONIDE/FORMETEROL FUMARATE 80/4.5 mcg INHALER IH SCH ×2 (09:26→21:09)
[2017-07-05] MEDS: PARoxetine HCL 10 MG TABLET (FP) PO SCH (09:26)
[2017-07-05] MEDS: FUROSEMIDE 40 MG TABLET (FP) PO SCH (09:26)
[2017-07-05] MEDS: PRENATAL VITAMINS W/ FOLIC ACID TABLET (FP) PO SCH (09:26)
[2017-07-05] MEDS: RANITIDINE HCL 150 MG TABLET (FP) PO SCH ×2 (09:26→21:08)
[2017-07-05] MEDS: QUEtiapine FUMARATE 100 MG TABLET (FP) PO SCH (21:08)
[2017-07-05] MEDS: MONTELUKAST NA 10 MG TABLET PO SCH (21:08)
[2017-07-05] MEDS: THIAMINE HCL 100 MG TABLET (FP) PO SCH (21:08)
[2017-07-06] MEDS ORDERED: METHADONE HCL 10 MG TABLET ONE (03:12)
[2017-07-06] MEDS ORDERED: METHADONE HCL 40 MG DISPERSABLE TABLET ONE (03:12)
[2017-07-06] MEDS: METHADONE 80 MG, METHADONE 30 MG PO SCH (06:18)
[2017-07-06] MEDS: GABAPENTIN 100 MG CAPSULE (FP) PO SCH ×3 (06:19→21:10)
[2017-07-06] MEDS: NICOTINE POLACRILEX 2 MG GUM BUC PRN ×5 (06:20→20:28)
[2017-07-06] MEDS: PRENATAL VITAMINS W/ FOLIC ACID TABLET (FP) PO SCH (09:28)
[2017-07-06] MEDS: RANITIDINE HCL 150 MG TABLET (FP) PO SCH ×2 (09:28→21:10)
[2017-07-06] MEDS: DOCUSATE SODIUM 100 MG CAPSULE (FP) PO SCH ×2 (09:28→21:10)
[2017-07-06] MEDS: FUROSEMIDE 40 MG TABLET (FP) PO SCH (09:28)
[2017-07-06] MEDS: BUDESONIDE/FORMETEROL FUMARATE 80/4.5 mcg INHALER IH SCH ×2 (09:29→21:11)
[2017-07-06] MEDS: PARoxetine HCL 10 MG TABLET (FP) PO SCH (09:30)
[2017-07-06] MEDS: THIAMINE HCL 100 MG TABLET (FP) PO SCH (21:10)
[2017-07-06] MEDS: QUEtiapine FUMARATE 100 MG TABLET (FP) PO SCH (21:10)
[2017-07-06] MEDS: MONTELUKAST NA 10 MG TABLET PO SCH (21:10)
[2017-07-07] MEDS ORDERED: METHADONE HCL 10 MG TABLET ONE (03:15)
[2017-07-07] MEDS ORDERED: METHADONE HCL 40 MG DISPERSABLE TABLET ONE (03:15)
[2017-07-07] MEDS: METHADONE 80 MG, METHADONE 30 MG PO SCH (06:15)
[2017-07-07] MEDS: GABAPENTIN 100 MG CAPSULE (FP) PO SCH ×3 (06:16→21:04)
[2017-07-07] MEDS: NICOTINE POLACRILEX 2 MG GUM BUC PRN ×5 (06:16→21:06)
[2017-07-07] MEDS: FUROSEMIDE 40 MG TABLET (FP) PO SCH (09:58)
[2017-07-07] MEDS: PARoxetine HCL 10 MG TABLET (FP) PO SCH (09:58)
[2017-07-07] MEDS: PRENATAL VITAMINS W/ FOLIC ACID TABLET (FP) PO SCH (09:58)
[2017-07-07] MEDS: DOCUSATE SODIUM 100 MG CAPSULE (FP) PO SCH ×2 (09:58→21:04)
[2017-07-07] MEDS: RANITIDINE HCL 150 MG TABLET (FP) PO SCH ×2 (09:58→21:04)
[2017-07-07] MEDS: BUDESONIDE/FORMETEROL FUMARATE 80/4.5 mcg INHALER IH SCH ×2 (09:59→21:04)
[2017-07-07] MEDS: QUEtiapine FUMARATE 100 MG TABLET (FP) PO SCH (21:04)
[2017-07-07] MEDS: THIAMINE HCL 100 MG TABLET (FP) PO SCH (21:04)
[2017-07-07] MEDS: MONTELUKAST NA 10 MG TABLET PO SCH (21:04)
[2017-07-08] MEDS ORDERED: METHADONE HCL 40 MG DISPERSABLE TABLET ONE (05:22)
[2017-07-08] MEDS ORDERED: METHADONE HCL 10 MG TABLET ONE (05:22)
[2017-07-08] MEDS: GABAPENTIN 100 MG CAPSULE (FP) PO SCH ×3 (06:13→21:09)
[2017-07-08] MEDS: METHADONE 80 MG, METHADONE 30 MG PO SCH (06:13)
[2017-07-08] MEDS: NICOTINE POLACRILEX 2 MG GUM BUC PRN ×7 (06:13→22:27)
[2017-07-08] MEDS: BUDESONIDE/FORMETEROL FUMARATE 80/4.5 mcg INHALER IH SCH ×2 (09:23→21:09)
[2017-07-08] MEDS: DOCUSATE SODIUM 100 MG CAPSULE (FP) PO SCH ×2 (09:23→21:09)
[2017-07-08] MEDS: PARoxetine HCL 10 MG TABLET (FP) PO SCH (09:23)
[2017-07-08] MEDS: RANITIDINE HCL 150 MG TABLET (FP) PO SCH ×2 (09:23→21:09)
[2017-07-08] MEDS: PRENATAL VITAMINS W/ FOLIC ACID TABLET (FP) PO SCH (09:23)
[2017-07-08] MEDS: FUROSEMIDE 40 MG TABLET (FP) PO SCH (09:23)
[2017-07-08] MEDS: MONTELUKAST NA 10 MG TABLET PO SCH (21:09)
[2017-07-08] MEDS: THIAMINE HCL 100 MG TABLET (FP) PO SCH (21:09)
[2017-07-08] MEDS: QUEtiapine FUMARATE 100 MG TABLET (FP) PO SCH (21:09)
[2017-07-09] MEDS ORDERED: METHADONE HCL 10 MG TABLET ONE (04:46)
[2017-07-09] MEDS ORDERED: METHADONE HCL 40 MG DISPERSABLE TABLET ONE (04:47)
[2017-07-09] MEDS: METHADONE 80 MG, METHADONE 30 MG PO SCH (06:06)
[2017-07-09] MEDS: GABAPENTIN 100 MG CAPSULE (FP) PO SCH ×3 (06:06→21:04)
[2017-07-09] MEDS: NICOTINE POLACRILEX 2 MG GUM BUC PRN ×5 (06:08→21:05)
[2017-07-09] MEDS: PRENATAL VITAMINS W/ FOLIC ACID TABLET (FP) PO SCH (09:30)
[2017-07-09] MEDS: PARoxetine HCL 10 MG TABLET (FP) PO SCH (09:30)
[2017-07-09] MEDS: DOCUSATE SODIUM 100 MG CAPSULE (FP) PO SCH ×2 (09:30→21:04)
[2017-07-09] MEDS: RANITIDINE HCL 150 MG TABLET (FP) PO SCH ×2 (09:30→21:04)
[2017-07-09] MEDS: BUDESONIDE/FORMETEROL FUMARATE 80/4.5 mcg INHALER IH SCH ×2 (09:30→21:09)
[2017-07-09] MEDS: FUROSEMIDE 40 MG TABLET (FP) PO SCH (09:30)
[2017-07-09] MEDS: SIMETHICONE 80 MG TAB.CHEW (FP) PO PRN (19:39)
[2017-07-09] MEDS: MONTELUKAST NA 10 MG TABLET PO SCH (21:04)
[2017-07-09] MEDS: QUEtiapine FUMARATE 100 MG TABLET (FP) PO SCH (21:04)
[2017-07-09] MEDS: THIAMINE HCL 100 MG TABLET (FP) PO SCH (21:05)
[2017-07-10] MEDS ORDERED: METHADONE HCL 40 MG DISPERSABLE TABLET ONE (05:19)
[2017-07-10] MEDS ORDERED: METHADONE HCL 10 MG TABLET ONE (05:19)
[2017-07-10] MEDS: GABAPENTIN 100 MG CAPSULE (FP) PO SCH ×3 (06:04→21:05)
[2017-07-10] MEDS: METHADONE 80 MG, METHADONE 30 MG PO SCH (06:04)
[2017-07-10] MEDS: NICOTINE POLACRILEX 2 MG GUM BUC PRN ×6 (06:05→20:38)
[2017-07-10] MEDS: PRENATAL VITAMINS W/ FOLIC ACID TABLET (FP) PO SCH (09:33)
[2017-07-10] MEDS: DOCUSATE SODIUM 100 MG CAPSULE (FP) PO SCH ×2 (09:33→21:05)
[2017-07-10] MEDS: RANITIDINE HCL 150 MG TABLET (FP) PO SCH ×2 (09:33→21:05)
[2017-07-10] MEDS: FUROSEMIDE 40 MG TABLET (FP) PO SCH (09:33)
[2017-07-10] MEDS: PARoxetine HCL 10 MG TABLET (FP) PO SCH (09:33)
[2017-07-10] MEDS: BUDESONIDE/FORMETEROL FUMARATE 80/4.5 mcg INHALER IH SCH ×2 (09:33→21:06)
[2017-07-10] MEDS: SIMETHICONE 80 MG TAB.CHEW (FP) PO PRN (10:58)
[2017-07-10] MEDS ORDERED: MAG HYDROX/AL HYDROX/SIMETH 30 ML UNIT-DOSE CUP PO PRN (14:11)
[2017-07-10] MEDS: QUEtiapine FUMARATE 100 MG TABLET (FP) PO SCH (21:05)
[2017-07-10] MEDS: THIAMINE HCL 100 MG TABLET (FP) PO SCH (21:05)
[2017-07-10] MEDS: MONTELUKAST NA 10 MG TABLET PO SCH (21:05)
[2017-07-11] MEDS ORDERED: METHADONE HCL 10 MG TABLET ONE (03:19)
[2017-07-11] MEDS ORDERED: METHADONE HCL 40 MG DISPERSABLE TABLET ONE (03:20)
[2017-07-11] MEDS: GABAPENTIN 100 MG CAPSULE (FP) PO SCH ×3 (06:12→21:14)
[2017-07-11] MEDS: METHADONE 80 MG, METHADONE 30 MG PO SCH (06:12)
[2017-07-11] MEDS: NICOTINE POLACRILEX 2 MG GUM BUC PRN ×5 (06:13→20:06)
[2017-07-11] MEDS: PARoxetine HCL 10 MG TABLET (FP) PO SCH (09:38)
[2017-07-11] MEDS: RANITIDINE HCL 150 MG TABLET (FP) PO SCH ×2 (09:38→21:14)
[2017-07-11] MEDS: DOCUSATE SODIUM 100 MG CAPSULE (FP) PO SCH ×2 (09:38→21:14)
[2017-07-11] MEDS: PRENATAL VITAMINS W/ FOLIC ACID TABLET (FP) PO SCH (09:38)
[2017-07-11] MEDS: BUDESONIDE/FORMETEROL FUMARATE 80/4.5 mcg INHALER IH SCH ×2 (09:38→21:14)
[2017-07-11] MEDS: FUROSEMIDE 40 MG TABLET (FP) PO SCH (09:38)
[2017-07-11] MEDS: QUEtiapine FUMARATE 100 MG TABLET (FP) PO SCH (21:14)
[2017-07-11] MEDS: MONTELUKAST NA 10 MG TABLET PO SCH (21:14)
[2017-07-11] MEDS: THIAMINE HCL 100 MG TABLET (FP) PO SCH (21:14)
[2017-07-12] MEDS ORDERED: METHADONE HCL 10 MG TABLET ONE (03:13)
[2017-07-12] MEDS ORDERED: METHADONE HCL 40 MG DISPERSABLE TABLET ONE (03:13)
[2017-07-12] MEDS: METHADONE 80 MG, METHADONE 30 MG PO SCH (06:07)
[2017-07-12] MEDS: GABAPENTIN 100 MG CAPSULE (FP) PO SCH ×3 (06:08→21:01)
[2017-07-12] MEDS: NICOTINE POLACRILEX 2 MG GUM BUC PRN ×6 (06:09→22:07)
[2017-07-12] MEDS: FUROSEMIDE 40 MG TABLET (FP) PO SCH (09:28)
[2017-07-12] MEDS: RANITIDINE HCL 150 MG TABLET (FP) PO SCH ×2 (09:28→21:01)
[2017-07-12] MEDS: PARoxetine HCL 10 MG TABLET (FP) PO SCH (09:28)
[2017-07-12] MEDS: DOCUSATE SODIUM 100 MG CAPSULE (FP) PO SCH ×2 (09:28→21:01)
[2017-07-12] MEDS: PRENATAL VITAMINS W/ FOLIC ACID TABLET (FP) PO SCH (09:28)
[2017-07-12] MEDS: BUDESONIDE/FORMETEROL FUMARATE 80/4.5 mcg INHALER IH SCH ×2 (09:28→21:01)
[2017-07-12] MEDS: MONTELUKAST NA 10 MG TABLET PO SCH (21:01)
[2017-07-12] MEDS: QUEtiapine FUMARATE 100 MG TABLET (FP) PO SCH (21:01)
[2017-07-12] MEDS: THIAMINE HCL 100 MG TABLET (FP) PO SCH (21:01)
[2017-07-13] MEDS ORDERED: METHADONE HCL 10 MG TABLET ONE (03:11)
[2017-07-13] MEDS ORDERED: METHADONE HCL 40 MG DISPERSABLE TABLET ONE (03:12)
[2017-07-13] MEDS: METHADONE 80 MG, METHADONE 30 MG PO SCH (05:54)
[2017-07-13] MEDS: GABAPENTIN 100 MG CAPSULE (FP) PO SCH ×3 (06:18→21:06)
[2017-07-13] MEDS: NICOTINE POLACRILEX 2 MG GUM BUC PRN ×4 (07:56→21:07)
[2017-07-13] MEDS: BUDESONIDE/FORMETEROL FUMARATE 80/4.5 mcg INHALER IH SCH ×2 (09:34→21:07)
[2017-07-13] MEDS: DOCUSATE SODIUM 100 MG CAPSULE (FP) PO SCH ×2 (09:34→21:06)
[2017-07-13] MEDS: PRENATAL VITAMINS W/ FOLIC ACID TABLET (FP) PO SCH (09:34)
[2017-07-13] MEDS: RANITIDINE HCL 150 MG TABLET (FP) PO SCH ×2 (09:35→21:06)
[2017-07-13] MEDS: PARoxetine HCL 10 MG TABLET (FP) PO SCH (09:35)
[2017-07-13] MEDS: FUROSEMIDE 40 MG TABLET (FP) PO SCH (09:35)
--- NOTE | 2017-07-13 11:32 | PN ---
[facility] Progress Note Note: Patient complains of long toe nails. Would like to trim toe nails. Patient recommended to file nails with severn board for long toe nails. Toe nails noted long, thick and intact. No redness or swelling noted. Continue to monitor clinically.
[2017-07-13] MEDS: MONTELUKAST NA 10 MG TABLET PO SCH (21:05)
[2017-07-13] MEDS: THIAMINE HCL 100 MG TABLET (FP) PO SCH (21:06)
[2017-07-13] MEDS: QUEtiapine FUMARATE 100 MG TABLET (FP) PO SCH (21:06)
[2017-07-14] MEDS: GABAPENTIN 100 MG CAPSULE (FP) PO SCH ×3 (06:09→21:03)
[2017-07-14] MEDS: NICOTINE POLACRILEX 2 MG GUM BUC PRN ×7 (06:11→22:37)
[2017-07-14] MEDS ORDERED: METHADONE HCL 10 MG TABLET PO SCH (06:15)
[2017-07-14] MEDS ORDERED: METHADONE HCL 10 MG TABLET ONE (06:33)
[2017-07-14] MEDS ORDERED: METHADONE HCL 40 MG DISPERSABLE TABLET ONE (06:34)
[2017-07-14] MEDS: METHADONE 80 MG, METHADONE 30 MG PO SCH (06:34)
[2017-07-14] MEDS: PARoxetine HCL 10 MG TABLET (FP) PO SCH (09:33)
[2017-07-14] MEDS: PRENATAL VITAMINS W/ FOLIC ACID TABLET (FP) PO SCH (09:33)
[2017-07-14] MEDS: RANITIDINE HCL 150 MG TABLET (FP) PO SCH ×2 (09:33→21:03)
[2017-07-14] MEDS: DOCUSATE SODIUM 100 MG CAPSULE (FP) PO SCH ×2 (09:33→21:03)
[2017-07-14] MEDS: FUROSEMIDE 40 MG TABLET (FP) PO SCH (09:33)
[2017-07-14] MEDS: BUDESONIDE/FORMETEROL FUMARATE 80/4.5 mcg INHALER IH SCH ×2 (09:33→21:03)
[2017-07-14] MEDS: MONTELUKAST NA 10 MG TABLET PO SCH (21:03)
[2017-07-14] MEDS: THIAMINE HCL 100 MG TABLET (FP) PO SCH (21:03)
[2017-07-14] MEDS: QUEtiapine FUMARATE 100 MG TABLET (FP) PO SCH (21:03)
[2017-07-15] MEDS ORDERED: METHADONE HCL 10 MG TABLET ONE (05:30)
[2017-07-15] MEDS ORDERED: METHADONE HCL 40 MG DISPERSABLE TABLET ONE (05:30)
[2017-07-15] MEDS: GABAPENTIN 100 MG CAPSULE (FP) PO SCH ×3 (06:09→21:03)
[2017-07-15] MEDS: METHADONE 80 MG, METHADONE 30 MG PO SCH (06:09)
[2017-07-15] MEDS: NICOTINE POLACRILEX 2 MG GUM BUC PRN ×6 (06:10→22:12)
[2017-07-15] MEDS: PRENATAL VITAMINS W/ FOLIC ACID TABLET (FP) PO SCH (09:18)
[2017-07-15] MEDS: PARoxetine HCL 10 MG TABLET (FP) PO SCH (09:18)
[2017-07-15] MEDS: RANITIDINE HCL 150 MG TABLET (FP) PO SCH ×2 (09:18→21:03)
[2017-07-15] MEDS: DOCUSATE SODIUM 100 MG CAPSULE (FP) PO SCH ×2 (09:19→21:03)
[2017-07-15] MEDS: FUROSEMIDE 40 MG TABLET (FP) PO SCH (09:19)
[2017-07-15] MEDS: BUDESONIDE/FORMETEROL FUMARATE 80/4.5 mcg INHALER IH SCH ×2 (09:19→21:03)
[2017-07-15] MEDS ORDERED: PT OWN MED DRAWER 7, Y5N ONE (20:16)
[2017-07-15] MEDS: QUEtiapine FUMARATE 100 MG TABLET (FP) PO SCH (21:03)
[2017-07-15] MEDS: THIAMINE HCL 100 MG TABLET (FP) PO SCH (21:03)
[2017-07-15] MEDS: MONTELUKAST NA 10 MG TABLET PO SCH (21:03)
[2017-07-16] MEDS ORDERED: METHADONE HCL 40 MG DISPERSABLE TABLET ONE (04:50)
[2017-07-16] MEDS ORDERED: METHADONE HCL 10 MG TABLET ONE (04:50)
[2017-07-16] MEDS: METHADONE 80 MG, METHADONE 30 MG PO SCH (06:05)
[2017-07-16] MEDS: GABAPENTIN 100 MG CAPSULE (FP) PO SCH (06:05)
[2017-07-16] MEDS: NICOTINE POLACRILEX 2 MG GUM BUC PRN (06:08)
[2017-07-16 06:46] VITALS: BP 117/71; PULSE 56; TEMP 97.6
[2017-07-16] MEDS: DOCUSATE SODIUM 100 MG CAPSULE (FP) PO SCH (09:22)
[2017-07-16] MEDS: RANITIDINE HCL 150 MG TABLET (FP) PO SCH (09:22)
[2017-07-16] MEDS: BUDESONIDE/FORMETEROL FUMARATE 80/4.5 mcg INHALER IH SCH (09:22)
[2017-07-16] MEDS: PARoxetine HCL 10 MG TABLET (FP) PO SCH (09:22)
[2017-07-16] MEDS: PRENATAL VITAMINS W/ FOLIC ACID TABLET (FP) PO SCH (09:22)
[2017-07-16] MEDS: FUROSEMIDE 40 MG TABLET (FP) PO SCH (09:23)
--- NOTE | 2017-07-16 10:35 | PN ---
Psychiatric Progress Note Vital Signs: Vital Signs Period Temp Pulse Resp BP Sys/Tavares Pulse Ox Last 24 Hr 97.6 F 56 18-18 117/71 Date of Session: 07/16/17 Chief Complaint:: discharge visit HPI: Patient has addressed alcohol nicotine dependence comorbid Bipolar I disorder. ROS: WNL Current Side Effect: No Lab tests ordered: No Lab tests reviewed: Yes Provider note:: Patient has completed his treatment today and met his identified goals, will continue to address his issues at [facility] outpatient treatment program. Patient verbalized his resolution to continue maintain abstinence and stay away from "people, places and things". Patient was encouraged utilize all supports available to prevent relapse. Medications( gabapentin and seroquel ) well tolerated, patient is hopefull and denies suicidal/homicidal thoughts, scripts provided for 30 days supply, patient is stable for discharge today. Total face to face time:: 20 Mental Status Exam - Mental Status Exam Alert and Oriented to: Time, Place, Person Cognitive Function: Grossly Intact Patient Appearance: Well Groomed Mood: Hopeful Affect: Appropriate, Mood Congruent Patient Behavior: Appropriate, Cooperative Speech Pattern: Clear, Appropriate Voice Loudness: Normal Thought Process: Intact, Goal Oriented Hallucinations: Denies Suicidal Ideation: Denies Homicidal Ideation: Denies Insight/Judgement: Fair Sleep: Fair Appetite: Fair Muscle strength/Tone: Normal Gait/Station: Normal Psychiatric Treatment Plan - Problem List (3) Nicotine dependence Qualifiers: Nicotine product type: cigarettes Substance use status: in withdrawal Qualified Code(s): F17.213 - Nicotine dependence, cigarettes, with withdrawal
== END 2017-07-16 09:20 | disposition home or self-care (01) | DRG 895 ==
LOC: YASAS 19:04 → Y5N 19:05
PROVIDERS: ADMIT Psychiatry & Neurology Psychiatry; ATTEND Psychiatry & Neurology Psychiatry
PROC: HZ42ZZZ Group Counseling for Substance Abuse Treatment, Cognitive-Behavioral (ICD-10-PCS; principal; 2017-06-29)
DX: F11.20 Opioid dependence, uncomplicated (principal); F13.20 Sedative, hypnotic or anxiolytic dependence, uncomplicated; F31.89 Other bipolar disorder; F10.20 Alcohol dependence, uncomplicated; F17.210 Nicotine dependence, cigarettes, uncomplicated; B18.2 Chronic viral hepatitis C; M12.9 Arthropathy, unspecified; J30.9 Allergic rhinitis, unspecified; Z96.641 Presence of right artificial hip joint; Z87.898 Personal history of other specified conditions; Z91.5 Personal history of self-harm; Z59.0 Homelessness

== ENCOUNTER 2017-07-03 18:23 | Emergency (ER) | payer OTHER ==
--- NOTE | 2017-07-03 18:33 | PDOC ---
History of Present Illness - General Stated Complaint: ABDOMINAL PAIN Time Seen by Provider: 07/03/17 18:33 - History of Present Illness Initial Comments: 07/03/17 18:38 Mr. Matt is a 47 yo male w/ pmh of GERD, HCV, Seizures, and Asthma who presents complaining of a 3 day history of constipation. He reports abdominal pain that became acutely worse this morning and was given Mylicon for constipation by the nurse at [facility] where he is undergoing treatment for alcohol abuse (last drink over 2 weeks ago). He reports he was able to have 2 small bowel movements that he says made the pain slightly better for a short time but that it came back almost immediately. The patient denies chest pain, shortness of breath, headache and dizziness. Denies fever, chills, nausea, vomit, and diarrhea. Denies dysuria, frequency, urgency and hematuria. Allergies: Morphine (itching only) Past History - Past Medical History Allergies/Adverse Reactions: Allergies Allergy/AdvReac Type Severity Reaction Status Date / Time Fish Containing Products Allergy Verified 07/03/17 18:41 morphine Allergy Verified 07/03/17 18:40 fish Allergy Intermediate Rash Uncoded 07/03/17 18:41 Home Medications: Ambulatory Orders Albuterol Sulfate Inhaler - [Ventolin Hfa Inhaler -] 2 inh PO Q4H PRN 06/10/16 Montelukast Na [Singulair -] 10 mg PO HS 06/10/16 Ranitidine HCl [Zantac] 150 mg PO BID 06/10/16 hydrOXYzine HCL [Atarax -] 50 mg PO BID PRN 06/10/16 Salmeterol/Fluticasone [Advair 250Mcg/50Mcg] 1 inh PO BID 08/12/16 Paroxetine HCl [Paxil -] 10 mg PO DAILY #30 tablet 08/13/16 Quetiapine Fumarate [Seroquel] 100 mg PO HS #30 tablet 08/13/16 Albuterol Sulfate Inhaler - [Ventolin HFA Inhaler -] 2 puff IH Q4H PRN #1 inhaler 09/02/16 Budesonide/Formeterol Fumarate [SYMBICORT 80/4.5mcg -] 2 puff IH BID #1 inhaler 09/02/16 Docusate Sodium [Colace -] 100 mg PO BID #60 cap 09/02/16 Furosemide [Lasix -] 40 mg PO DAILY #30 tablet 09/02/16 Montelukast Na [Singulair -] 10 mg PO HS #30 tablet 09/02/16 Paroxetine HCl [Paxil] 10 mg PO DAILY #30 ml 09/02/16 Quetiapine Fumarate [Seroquel] 100 mg PO HS #30 tablet 09/02/16 Paroxetine HCl [Paxil] 10 mg PO DAILY #30 tablet 06/26/17 Quetiapine Fumarate [Seroquel] 100 mg PO HS #30 tablet 06/26/17 Anemia: No Asthma: Yes Cancer: No Cardiac Disorders: No CVA: No COPD: No CHF: No Dementia: No Diabetes: No GI Disorders: No Disorders: No HTN: No Hypercholesterolemia: No Kidney Stones: No Liver Disease: No Seizures: No Thyroid Disease: No - Surgical History Abdominal Surgery: No Appendectomy: No Cardiac Surgery: No Cholecystectomy: No Lung Surgery: No Neurologic Surgery: No Orthopedic Surgery: Yes (right hip replacement) - Reproductive History Testicular Surgery: No - Suicide/Smoking/Psychosocial Hx Smoking History: Former smoker Have you smoked in the past 12 months: No Number of Cigarettes Smoked Daily: 10 'Breaking Loose' booklet given: 08/12/16 Hx Alcohol Use: Yes (age at first use 14 year) Drug/Substance Use Hx: Yes Substance Use Type: Alcohol (12beer and 1 pint of bacardi), Tranquilizers ( xanax daily use 2 mg x 7-8) Hx Substance Use Treatment: Yes Review of Systems - Review of Systems Comments:: 07/03/17 20:43 GENERAL/CONSTITUTIONAL: No fever or chills. No weakness. HEAD, EYES, EARS, NOSE AND THROAT: No change in vision. No ear pain or discharge. No sore throat. CARDIOVASCULAR: No chest pain or shortness of breath RESPIRATORY: No cough, wheezing, or hemoptysis. GASTROINTESTINAL: +Abdominal pain with constipation as described. No nausea, vomiting, or diarrhea. GENITOURINARY: No dysuria, frequency, or change in urination. MUSCULOSKELETAL: No joint or muscle swelling or pain. No neck or back pain. SKIN: No rash NEUROLOGIC: No headache, vertigo, loss of consciousness, or change in strength/ sensation. ENDOCRINE: No increased thirst. No abnormal weight change HEMATOLOGIC/LYMPHATIC: No anemia, easy bleeding, or history of blood clots. ALLERGIC/IMMUNOLOGIC: No hives or skin allergy. *Physical Exam - Physical Exam Comments: 07/03/17 20:43 GENERAL: Awake, alert, and fully oriented, in no acute distress HEAD: No signs of trauma, normocephalic, atraumatic EYES: PERRLA, EOMI, sclera anicteric, conjunctiva clear ENT: Auricles normal inspection, hearing grossly normal, nares patent, oropharynx clear without exudates. Moist mucosa NECK: Normal ROM, supple, no lymphadenopathy, JVD, or masses LUNGS: No distress, speaks full sentences, clear to auscultation bilaterally HEART: Regular rate and rhythm, normal S1 and S2, no murmurs, rubs or gallops, peripheral pulses normal and equal bilaterally. ABDOMEN: +Stomach appears distended and is diffusely tender. No guarding, no rebound. No masses EXTREMITIES: Normal inspection, Normal range of motion, no edema. No clubbing or cyanosis. NEUROLOGICAL: Cranial nerves II through XII grossly intact. Normal speech, normal gait, no focal sensorimotor deficits SKIN: Warm, Dry, normal turgor, no rashes or lesions noted. ED Treatment Course - LABORATORY CBC & Chemistry Diagram: 07/03/17 19:05 07/03/17 19:05 Medical Decision Making - Medical Decision Making 07/03/17 22:23 Mr. Matt is a 47 yo male w/ pmh as described who presents for evaluation of significant abdominal pain. Dilaudid not available at this time. Morphine 4mg given for patient for pain control; discussed with patient who reports he gets itchy only from morphine; benadryl given in conjunction. CT ordered for evaluation; revealed patient full of stool. Miralax / milk of magnesia / fleet enema given for symptomatic relief. 07/03/17 23:22 Enema given - patient able to pass stool and reporting significant relief. Discharging home. *DC/Admit/Observation/Transfer Diagnosis at time of Disposition: Constipation Qualifiers: Constipation type: unspecified constipation type Qualified Code(s): K59.00 - Constipation, unspecified - Discharge Dispostion Disposition: HOME - Referrals - Patient Instructions Printed Discharge Instructions: DI for Constipation Additional Instructions: Please return to ER if any increase or return of pain, nausea, vomiting, fever, chills, or other concerning symptoms. Follow-up with primary care provider as needed for any further non-emergent needs. - Post Discharge Activity
[2017-07-03] MEDS ORDERED: morphine CARPU-JECT 4 MG/1 ML DISP.SYRIN IVPUSH ONE (18:46)
[2017-07-03] MEDS ORDERED: SODIUM CHLORIDE 0.9% 1000 ML INFUS.BAG IV ONE (18:46)
[2017-07-03] MEDS ORDERED: PANTOPRAZOLE SODIUM 40 MG VIAL IVPUSH ONE (18:48)
[2017-07-03 18:59] VITALS: TEMP 98; BMI 28.5
[2017-07-03] MEDS ORDERED: morphine SULFATE 4 MG/ML VIAL ONE (19:25)
[2017-07-03] MEDS ORDERED: PANTOPRAZOLE SODIUM 40 MG VIAL ONE (19:25)
--- NOTE | 2017-07-03 19:40 | PDOC ---
Attending Attestation - HPI HPI: 07/03/17 19:47 The patient is a 47 year old male, with a significant past medical history of GERD, stomach ulcers, Hepatitis C, ETOH abuse, seizures, and asthma, who presents to the emergency department from [facility] with constipation for approximately 3 days. The patient reports associated diffuse abdominal pain and his abdomen is more distended than at baseline. Patient reports his last bowel movement was this morning, which temporarily alleviated his pain. He denies any associated nausea or vomiting. Patient reports he is at [facility] for alcohol detox and is on Methadone. Patient reports his last drink was 2 weeks ago. He denies any recent fever, chills, headache, or dizziness. He denies any dysuria, hematuria, frequency, or urgency. He denies any chest pain, shortness of breath , diaphoresis, or palpitations. Patient reports he has had an appendectomy. - Physicial Exam PE: 07/03/17 19:48 GENERAL: Awake, alert, and fully oriented, in no acute distress HEAD: No signs of trauma EYES: PERRLA, EOMI, sclera anicteric, conjunctiva clear ENT: Auricles normal inspection, hearing grossly normal, nares patent. Moist mucosa NECK: Normal ROM, supple, no lymphadenopathy, JVD, or masses LUNGS: Breath sounds equal, clear to auscultation bilaterally. No wheezes, and no crackles HEART: Regular rate and rhythm, normal S1 and S2, no murmurs, rubs or gallops ABDOMEN: Severly distended and diffusely tender. Normoactive bowel sounds. No guarding, no rebound. No masses EXTREMITIES: Normal range of motion, no edema. No clubbing or cyanosis. No cords, erythema, or tenderness. DP/PT pulses 2+ and symmetric. NEUROLOGICAL: Moves all extremities. Normal speech, normal gait SKIN: Warm, Dry, normal turgor, no rashes or lesions noted. - Medical Decision Making 07/03/17 20:05 Documentation prepared by Yuriy Smith, acting as medical front desk specialist for Niesha Dominguez MD. <Yuriy Smith - Last Filed: 07/03/17 20:05> - Resident Resident Name: Chandrakant Gil - ED Attending Attestation I have performed the following: I have examined & evaluated the patient, The case was reviewed & discussed with the resident, I agree w/resident's findings & plan, Exceptions are as noted - Medical Decision Making 07/03/17 19:36 47-year-old male history of hepatitis C all call abuse sent here from rehabilitation for concerns for acute abdominal pain and constipation. Patient states he had 2 bowel movements today has not been passing any gas his abdomen is severely distended and tender denies nausea or vomiting no fevers or chills no chest pain no back pain no moderating factors to his pain has history of gastric ulcers and a prior appendectomy On exam his abdomen is severely distended diffusely tender Differential diagnosis includes perforated ulcer with free air, ascites, bowel obstruction, pancreatitis or cholecystitis plan CT abdomen and pelvis with IV contrast, focused bedside ED ultrasound to evaluate patient's gallbladder evaluate for ascites CBC CMP lipase and lactate. Pain control with morphine and Benadryl IV hydration and by mouth Focused ED bedside ultrasound performed of bilateral renal and bladder. No hydronephrosis noted. No free fluid noted. Gallbladder was normal with no wall thickening no pericholecystic fluid and no wall edema. Aorta was not visualized due to extensive bowel gas cardiac ultrasound performed with good contractility and no pericardial effusion Impression: Normal cardiac ultrasound no pericardial effusion, normal gallbladder and normal renal ultrasound 07/03/17 23:42 ct a/p with large stool dc to [facility] following enema. <Niesha Dominguez - Last Filed: 07/04/17 00:25> Heart Score/ECG Review #1 General ECG Interpretation: Sinus Rhythm, Normal Rate (72), Normal Intervals, No acute ischemic changes <Niesha Dominguez - Last Filed: 07/04/17 00:25>
[2017-07-03 19:44] LABS: BASO % 0.7 % (0-2.0); EOS % 3.3 % (0-4.5); HEMATOCRIT 36.2 % (35.4-49); HEMOGLOBIN 11.9 GM/dL (11.7-16.9); LYMPH % 22.4 % (8-40); MCH 29.1 pg (25.7-33.7); MCHC 32.8 g/dl (32.0-35.9); MEAN CELL VOLUME 88.7 fl (80-96); MEAN PLT VOLUME 9.6 fl (7.5-11.1); NEUT % 63.6 % (42.8-82.8); PLATELET COUNT 145 K/MM3 (134-434); RBC 4.08 M/mm3 (4.00-5.60); RDW 13.4 % (11.9-15.9); WHITE BLOOD COUNT 6.6 K/mm3 (4.0-10.0)
[2017-07-03 20:33] LABS: ALBUMIN 3.4 g/dl (3.4-5.0); ALK PHOS 105 U/L (45-117); ANION GAP 5 (8-16); BILIRUBIN,TOTAL 0.4 mg/dL (0.2-1.0); BLOOD UREA NITROGEN 8 mg/dL (7-18); CALCIUM 8.5 mg/dL (8.5-10.1); CHLORIDE 105 mmol/L (98-107); CO2 29 mmol/L (21-32); CREATININE 0.6 mg/dL (0.7-1.3); GLUCOSE,RANDOM 79 mg/dL (74-106); LIPASE 76 U/L (73-393); SGPT/ALT 67 U/L (12-78); SODIUM 139 mmol/L (136-145)
[2017-07-03 21:07] LABS: POTASSIUM 4.7 mmol/L (3.5-5.1); SGOT/AST 63 U/L (15-37)
[2017-07-03] MEDS ORDERED: MAGNESIUM HYDROX 2400MG/30ML ORAL SUSPENSION 30 ML CUP PO ONE (22:21)
[2017-07-03] MEDS ORDERED: POLYETHYLENE GLYCOL 3350 119 GM BTL PO ONE (22:21)
[2017-07-03] MEDS ORDERED: SODIUM PHOSPHATE/NA BIPHOS 133 ML ENEMA PR ONE (22:21)
[2017-07-04 01:14] VITALS: BP 120/63; PULSE 71
--- NOTE | 2017-07-04 08:49 | EKG ---
Test Reason : Blood Pressure : / mmHG Vent. Rate : 072 BPM Atrial Rate : 072 BPM P-R Int : 134 ms QRS Dur : 088 ms QT Int : 416 ms P-R-T Axes : 035 029 022 degrees QTc Int : 455 ms NORMAL SINUS RHYTHM NORMAL ECG WHEN COMPARED WITH ECG OF 26-JUN-2017 01:47, NO SIGNIFICANT CHANGE WAS FOUND Confirmed by TRACEY CHEATHAM MD ([id number]) on 07/04/2017 8:49:32 AM Referred By: Confirmed By:TRACEY CHEATHAM MD
== END 2017-07-04 01:13 | disposition home or self-care (01) ==
LOC: JER 18:23
PROC: 3E033NZ Introduction of Analgesics, Hypnotics, Sedatives into Peripheral Vein, Percutaneous Approach (ICD-10-PCS; principal; 2017-07-03)
PROC: 3E033GC Introduction of Other Therapeutic Substance into Peripheral Vein, Percutaneous Approach (ICD-10-PCS; 2017-07-03)
PROC: 3E033GC Introduction of Other Therapeutic Substance into Peripheral Vein, Percutaneous Approach (ICD-10-PCS; 2017-07-03)
DX: K59.00 Constipation, unspecified (principal); K21.9 Gastro-esophageal reflux disease without esophagitis; B18.2 Chronic viral hepatitis C; J45.909 Unspecified asthma, uncomplicated; Z96.641 Presence of right artificial hip joint; Z59.0 Homelessness
CPT/HCPCS: 36415; 71045-TC-FY; 74177-TC; 80053; 83605; 83690; 85025; 86850; 86900; 86901; 93005; 93010; 96374; 96375; 99283-25; J7030

== ENCOUNTER 2017-12-21 11:36 | Inpatient (IN) | payer OTHER ==
[2017-12-21 12:54] VITALS: BMI 28.0
--- NOTE | 2017-12-21 14:46 | HP ---
CIWA Score - CIWA Score Nausea/Vomitin Muscle Tremors: 3 Anxiety: 2 Agitation: 3 Paroxysmal Sweats: 1-Minimal Palms Moist Orientation: 0-Oriented Tacttile Disturbances: 1-Very Mild Itch/Numbness Auditory Disturbances: 1-Very Mild Visual Disturbances: 1-Very Mild Sensitivity Headache: 2-Mild CIWA-Ar Total Score: 16 Admission ROS BHS - HPI Chief Complaint: i need help to stop using xanax ,cocaine,mmtp 110 mgs/day Allergies/Adverse Reactions: Allergies Allergy/AdvReac Type Severity Reaction Status Date / Time morphine Allergy Severe Rash Verified 12/21/17 14:05 fish Allergy Severe Rash Uncoded 12/21/17 14:05 History of Present Illness: this 47 years old male with xanax dependence,cocaine dependence,seeking detox, withdrawal symptom,mmtp 110 mgs/day last medicated today last seizure 12/20/17 nicotine dependence anxiety,depression,insomnia asthma gerd multiple admissions in the past,last [facility] 06/25/17 to 06/29/17 longest sobriety 1 year - Ebola screening Have you traveled outside of the country in the last 21 days: No Have you had contact with anyone from an Ebola affected area: No Have you been sick,other than usual withdrawal symptoms: No Do you have a fever: No - Review of Systems Constitutional: Loss of Appetite, Malaise, Night Sweats, Changes in sleep, Weakness, Unintentional Wgt. Loss EENT: reports: Tearing, Nose Congestion Respiratory: reports: Other (asthma) Cardiac: reports: No Symptoms Reported GI: reports: Diarrhea, Nausea, Vomiting, Abdominal cramping : reports: No Symptoms Reported Musculoskeletal: reports: Back Pain, Muscle Pain Integumentary: reports: Dryness Neuro: reports: Headache, Tremors Endocrine: reports: No Symptoms Reported Hematology: reports: No Symptoms Reported Psychiatric: reports: No Sypmtoms Reported, Judgement Intact, Mood/Affect Appropiate, Orientated x3 (insomnia) Patient History - Patient Medical History Hx Anemia: No Hx Asthma: Yes (on albuterol and advair) Hx Chronic Obstructive Pulmonary Disease (COPD): No Hx Cancer: No Hx Cardiac Disorders: No Hx Congestive Heart Failure: No Hx Hypertension: No Hx Hypercholesterolemia: No Hx Pacemaker: No HX Cerebrovascular Accident: No Hx Seizures: No Hx Dementia: No Hx Diabetes: No Hx Gastrointestinal Disorders: Yes (acid reflux) Hx Liver Disease: No Hx Genitourinary Disorders: No Hx Sexually Transmitted Disorders: No Hx Renal Disease (ESRD): No Hx Thyroid Disease: No Hx Human Immunodeficiency Virus (HIV): No (NEGATIVE HX) Hx Hepatitis C: Yes (treated) Hx Depression: Yes Hx Suicide Attempt: Yes (cut left wrist in 2016) Hx Bipolar Disorder: Yes Hx Schizophrenia: No Other Medical History: no suicidal,no homicidal - Patient Surgical History Past Surgical History: Yes Hx Neurologic Surgery: No Hx Cataract Extraction: No Hx Cardiac Surgery: No Hx Lung Surgery: No Hx Breast Surgery: No Hx Breast Biopsy: No Hx Abdominal Surgery: No Hx Appendectomy: No Hx Cholecystectomy: No Hx Genitourinary Surgery: No Hx Section: No Hx Orthopedic Surgery: Yes (right hip replacement in 2012) Anesthesia Reaction: No - PPD History Previous Implant?: Yes Documented Results: Negative w/proof Implanted On Prior [facility] Admission?: Yes Date: 06/28/17 Results: 0 mm PPD to be Administered?: No - Smoking Cessation Smoking history: Former smoker Have you smoked in the past 12 months: No Aproximately how many cigarettes per day: 10 If you are a former smoker, when did you quit?: 2016 Hx Chewing Tobacco Use: Yes Initiated information on smoking cessation: No 'Breaking Loose' booklet given: 12/21/17 - Substance & Tx. History Hx Alcohol Use: No Hx Substance Use: Yes Substance Use Type: Cocaine, Tranquilizers Hx Substance Use Treatment: Yes (xanax,cocaine) - Substances Abused Cocaine Route: Smoking Frequency: Daily Amount used: $100 Age of first use: 27 Date of Last Use: 12/20/17 Xanax Route: Oral Frequency: Daily Amount used: 6-12 tabs (2 mg.) Age of first use: 46 Date of Last Use: 12/20/17 Family Disease History - Family Disease History Family Disease History: Other: Father (alive and well ), Mother (alive and well ) Admission Physical Exam BHS - Vital Signs Vital Signs: Vital Signs - 24 hr 12/21/17 12:50 Temperature 97.3 F L Pulse Rate 60 Respiratory 18 Rate Blood Pressure 106/66 - Physical General Appearance: Yes: Moderate Distress, Tremorous, Irritable, Sweating, Anxious HEENTM: Yes: Normal ENT Inspection, MARY, Pharynx Normal Respiratory: Yes: Within Normal Limits, Lungs Clear, Normal Breath Sounds Neck: Yes: Within Normal Limits, Supple, Trachea in good position Breast: Yes: Within Normal Limits Cardiology: Yes: Within Normal Limits, Regular Rhythm, Regular Rate, S1, S2 Abdominal: Yes: Within Normal Limits, Normal Bowel Sounds, Non Tender, Flat, Soft Genitourinary: Yes: Within Normal Limits Back: Yes: Muscle Spasm Musculoskeletal: Yes: full range of Motion, Back pain, Muscle Pain Extremities: Yes: Within Normal Limits, Normal Range of Motion, Tremors Neurological: Yes: superintendent greens II-XII NML intact, Alert, Motor Strength 5/5 Integumentary: Yes: Dry Lymphatic: Yes: Within Normal Limits - Diagnostic (1) Sedative, hypnotic or anxiolytic dependence with withdrawal, uncomplicated Current Visit: No Status: Acute (2) Nicotine dependence Current Visit: No Status: Acute Qualifiers: Nicotine product type: cigarettes Substance use status: in withdrawal Qualified Code(s): F17.213 - Nicotine dependence, cigarettes, with withdrawal (3) Asthma Current Visit: No Status: Chronic Qualifiers: Asthma severity: mild Asthma persistence: unspecified Asthma complication type: uncomplicated Qualified Code(s): J45.909 - Unspecified asthma, uncomplicated (4) Cocaine dependence, uncomplicated Current Visit: No Status: Chronic (5) GERD (gastroesophageal reflux disease) Current Visit: No Status: Chronic Qualifiers: Esophagitis presence: without esophagitis Qualified Code(s): K21.9 - Gastro -esophageal reflux disease without esophagitis (6) Methadone maintenance therapy patient Current Visit: No Status: Chronic Comment: Patient currently on 110mg, last medicated today, dose pending verification. (7) History of seizures Current Visit: No Status: Suspected Cleared for Admission [facility] - Detox or Rehab [facility] Level of Care: Medically Managed Detox Regimen/Protocol: Valium [facility] Breath Alcohol Content Breath Alcohol Content: 0 Urine Drug Screen - Results Drug Screen Negative: No Urine Drug Screen Results: THC-Marijuana, CLEVE-Cocaine, MET-Methamphetamine, BZO- Benzodiazepines, MTD-Methadone
[2017-12-21] MEDS ORDERED: MENTHOL/PHENOL 1 EACH UD MM PRN (14:56)
[2017-12-21] MEDS ORDERED: hydrOXYzine PAMOATE 50 MG CAPSULE (FP) PO PRN (14:56)
[2017-12-21] MEDS ORDERED: IBUPROFEN 400 MG TABLET (FP) PO PRN (14:56)
[2017-12-21] MEDS ORDERED: MAGNESIUM HYDROX 2400MG/30ML ORAL SUSPENSION 30 ML CUP PO PRN (14:56)
[2017-12-21] MEDS ORDERED: LOPERAMIDE HCL 2 MG CAPSULE PO PRN (14:56)
[2017-12-21] MEDS ORDERED: guaiFENesin/D-METHORPHAN HB 10 ML UNIT-DOSE CUPS PO PRN (14:56)
[2017-12-21] MEDS ORDERED: P-EPHED 60MG/TRIPROLIDI 2.5MG TABLET PO PRN (14:56)
[2017-12-21] MEDS ORDERED: diazePAM 5 MG TABLET PO PRN (14:56)
[2017-12-21] MEDS ORDERED: MAGNESIUM CITRATE 300 ML BOTTLE PO PRN (14:56)
[2017-12-21] MEDS ORDERED: ACETAMINOPHEN 325 MG TABLET (FP) PO PRN (14:56)
[2017-12-21] MEDS ORDERED: MAG HYDROX/AL HYDROX/SIMETH 30 ML UNIT-DOSE CUP PO PRN (14:56)
[2017-12-21] MEDS ORDERED: ALBUTEROL SO4 8 GM HFA INHALER IH PRN (15:02)
[2017-12-21] MEDS ORDERED: diazePAM 5 MG TABLET PO ONE (15:45)
[2017-12-21 17:59] LABS: URINE APPEARANCE CLEAR; URINE BILIRUBIN NEGATIVE (<2.0 mg/dL); URINE COLOR DKYELLOW; URINE GLUCOSE (UA) NEGATIVE (NEGATIVE); URINE KETONE NEGATIVE (NEGATIVE); URINE LEUK ESTERASE NEGATIVE (NEGATIVE); URINE NITRITE NEGATIVE (NEGATIVE); URINE PROTEIN NEGATIVE (NEGATIVE)
[2017-12-21] MEDS: NICOTINE 21 MG/24 HOURS TOPICAL PATCH TD SCH (18:40)
[2017-12-21] MEDS: NICOTINE POLACRILEX 4 MG GUM BUC PRN (18:42)
[2017-12-21] MEDS: RANITIDINE HCL 150 MG TABLET (FP) PO SCH (22:06)
[2017-12-21] MEDS: THIAMINE HCL 100 MG TABLET (FP) PO SCH (22:06)
[2017-12-21] MEDS: MONTELUKAST NA 10 MG TABLET PO SCH (22:06)
[2017-12-21] MEDS: BUDESONIDE/FORMETEROL FUMARATE 80/4.5 mcg INHALER IH SCH (22:06)
[2017-12-21] MEDS: diazePAM 5 MG TABLET PO SCH (22:06)
[2017-12-21] MEDS: MELATONIN 5 MG TABLETS PO PRN (22:08)
[2017-12-22] MEDS ORDERED: METHADONE HCL 10 MG TABLET ONE (04:15)
[2017-12-22] MEDS ORDERED: METHADONE HCL 40 MG DISPERSABLE TABLET ONE (04:15)
[2017-12-22] MEDS ORDERED: METHADONE HCL 10 MG TABLET PO SCH (06:00)
[2017-12-22] MEDS: METHADONE 80 MG, METHADONE 30 MG PO SCH (07:02)
[2017-12-22] MEDS: diazePAM 5 MG TABLET PO SCH ×3 (07:02→22:36)
[2017-12-22] MEDS: BUDESONIDE/FORMETEROL FUMARATE 80/4.5 mcg INHALER IH SCH ×2 (10:08→22:36)
[2017-12-22] MEDS: PRENATAL VITAMINS W/ FOLIC ACID TABLET (FP) PO SCH (10:09)
[2017-12-22] MEDS: RANITIDINE HCL 150 MG TABLET (FP) PO SCH ×2 (10:09→22:36)
[2017-12-22] MEDS: NICOTINE 21 MG/24 HOURS TOPICAL PATCH TD SCH (10:09)
[2017-12-22] MEDS: NICOTINE POLACRILEX 4 MG GUM BUC PRN ×3 (10:09→21:36)
--- NOTE | 2017-12-22 11:12 | CONSULT ---
[facility] Psychiatric Consult - Data Date of interview: 12/22/17 Admission source: [facility] Identifying data: Patient is a 47 year old single male, father of one, homeless , and is supported by disability. This is one of multiple admissions for patient. Patient admitted to for opioid dependence. Substance Abuse History: Smoking Cessation. Smoking history: Former smoker. Have you smoked in the past 12 months: No. Aproximately how many cigarettes per day: 10. If you are a former smoker, when did you quit?: 2016. Hx Chewing Tobacco Use: Yes. Initiated information on smoking cessation: No. 'Breaking Loose' booklet given: 12/21/17. - Substance & Tx. History. Hx Alcohol Use: No. Hx Substance Use: Yes. Substance Use Type: Cocaine, Tranquilizers. Hx Substance Use Treatment: Yes (xanax,cocaine). - Substances Abused. Cocaine. Route: Smoking. Frequency: Daily. Amount used: $100. Age of first use: 27. Date of Last Use: 12/20/17. Xanax. Route: Oral. Frequency: Daily. Amount used: 6-12 tabs (2 mg.). Age of first use: 46. Date of Last Use : 12/20/17 Medical History: Asthma Psychiatric History: Patient reports multiple psychiatric hospitalization in [place], [place], and [facility] for depressed mood and suicide attempt. Patient's most recent outpatient psychiatric was one year ago. He has been prescribed paxil 10mg + Seroquel 100mg qhs. He reports nonadherence to paxil and states he currently receives seroqel 100mg from his PCP. He is currently on methadone maintenance of 110mg roxanne. Patient reports two suicide attemts via overdose and hanging self. Pt .currently denies thoughs to hurt himself or others. Patient reports poor sleep and feeling down. Physical/Sexual Abuse/Trauma History: denies. Mental Status Exam - Mental Status Exam Alert and Oriented to: Time, Place, Person Cognitive Function: Good Patient Appearance: Well Groomed Mood: Euthymic Affect: Mood Congruent Patient Behavior: Cooperative Speech Pattern: Appropriate Voice Loudness: Normal Thought Process: Intact Thought Disorder: Not Present Hallucinations: Denies Suicidal Ideation: Denies Homicidal Ideation: Denies Insight/Judgement: Poor Sleep: Poorly Appetite: Fair Muscle strength/Tone: Normal Gait/Station: Normal Psychiatric Findings - Problem List ([place] 1, 2,3) (1) Sedative, hypnotic or anxiolytic dependence with withdrawal, uncomplicated Current Visit: Yes Status: Acute (2) Sedative hypnotic or anxiolytic dependence Current Visit: Yes Status: Acute (3) Substance-induced sleep disorder Current Visit: Yes Status: Acute (4) Substance induced mood disorder Current Visit: Yes Status: Acute (5) Methadone maintenance therapy patient Current Visit: Yes Status: Chronic Comment: Patient currently on 110mg, last medicated today, dose pending verification. - Initial Treatment Plan Initial Treatment Plan: Psychoeducation provided. Detoxification in progress. Seroquel 100mg qhs. Benefits and side effects discussed. Verbal consent given.
[2017-12-22 11:17] LABS: HEMATOCRIT 38.7 % (35.4-49); MCH 27.7 pg (25.7-33.7); MEAN CELL VOLUME 89.3 fl (80-96); MEAN PLT VOLUME 10.6 fl (7.5-11.1); PLATELET COUNT 174 K/MM3 (134-434); RBC 4.33 M/mm3 (4.00-5.60); WHITE BLOOD COUNT 5.4 K/mm3 (4.0-10.0)
[2017-12-22 11:20] LABS: ALBUMIN 3.8 g/dl (3.4-5.0); ALK PHOS 117 U/L (45-117); ANION GAP 4 MMOL/L (8-16); BILIRUBIN,TOTAL 0.5 mg/dL (0.2-1); BLOOD UREA NITROGEN 12 mg/dL (7-18); CALCIUM 9.5 mg/dL (8.5-10.1); CHLORIDE 109 mmol/L (98-107); CO2 28 mmol/L (21-32); CREATININE 0.8 mg/dL (0.55-1.3); GLUCOSE,RANDOM 80 mg/dL (74-106); SGOT/AST 29 U/L (15-37); SGPT/ALT 34 U/L (13-61); SODIUM 141 mmol/L (136-145); TOT PROT 7.2 g/dl (6.4-8.2)
--- NOTE | 2017-12-22 11:48 | EKG ---
Test Reason : Blood Pressure : / mmHG Vent. Rate : 054 BPM Atrial Rate : 054 BPM P-R Int : 152 ms QRS Dur : 096 ms QT Int : 442 ms P-R-T Axes : 048 029 040 degrees QTc Int : 419 ms SINUS BRADYCARDIA MINIMAL VOLTAGE CRITERIA FOR LVH, MAY BE NORMAL VARIANT BORDERLINE ECG WHEN COMPARED WITH ECG OF 04-JUL-2017 00:01, NO SIGNIFICANT CHANGE WAS FOUND Confirmed by Loi Chavarria MD ([id number]) on 12/22/2017 11:48:17 AM Referred By: Confirmed By:Loi Chavarria MD
--- NOTE | 2017-12-22 13:10 | PN ---
[facility] CIWA - CIWA Score Nausea/Vomitin-Mild Nausea/No Vomiting Muscle Tremors: 4-Moderate,w/Arms Extend Anxiety: 4-Mod. Anxious/Guarded Agitation: 3 Paroxysmal Sweats: 3 Orientation: 0-Oriented Tacttile Disturbances: 0-None Auditory Disturbances: 0-None Visual Disturbances: 0-None Headache: 1-Very Mild CIWA-Ar Total Score: 16 BHS Progress Note (SOAP) Subjective: Interrupted sleep, anxious, sweating Objective: 12/22/17 13:08 Last Vital Signs Temp Pulse Resp BP Pulse Ox 97.3 F L 69 18 121/77 12/22/17 09:22 12/22/17 09:22 12/22/17 09:22 12/22/17 09:22 Laboratory Tests 12/21/17 12/21/17 12/22/17 14:30 17:00 06:00 WBC 5.4 RBC 4.33 Hgb 12.0 Hct 38.7 MCV 89.3 MCH 27.7 MCHC 31.0 L RDW 14.0 Plt Count 174 MPV 10.6 D Sodium Potassium Chloride Carbon Dioxide Anion Gap BUN Creatinine Creat Clearance w eGFR Random Glucose Calcium Total Bilirubin AST ALT Alkaline Phosphatase Total Protein Albumin Urine Color Dkyellow Urine Appearance Clear Urine pH 5.0 Ur Specific [place] 1.024 Urine Protein Negative Urine Glucose (UA) Negative Urine Ketones Negative Urine Blood Negative Urine Nitrite Negative Urine Bilirubin Negative Urine Urobilinogen 2.0 Ur Leukocyte Esterase Negative RPR Titer HIV 1&2 Antibody Screen Negative HIV P24 Antigen Negative 12/22/17 12/22/17 06:00 06:00 WBC RBC Hgb Hct MCV MCH MCHC RDW Plt Count MPV Sodium 141 Potassium 4.0 Chloride 109 H Carbon Dioxide 28 Anion Gap 4 L BUN 12 Creatinine 0.8 Creat Clearance w eGFR > 60 Random Glucose 80 Calcium 9.5 Total Bilirubin 0.5 AST 29 ALT 34 Alkaline Phosphatase 117 Total Protein 7.2 Albumin 3.8 Urine Color Urine Appearance Urine pH Ur Specific [place] Urine Protein Urine Glucose (UA) Urine Ketones Urine Blood Urine Nitrite Urine Bilirubin Urine Urobilinogen Ur Leukocyte Esterase RPR Titer Nonreactive HIV 1&2 Antibody Screen HIV P24 Antigen Labs reviewed Assessment: 12/22/17 13:10 Withdrawal sxs Plan: Continue detox Encouraged PO water intake
[2017-12-22] MEDS: QUEtiapine FUMARATE 100 MG TABLET (FP) PO SCH (22:36)
[2017-12-22] MEDS: MONTELUKAST NA 10 MG TABLET PO SCH (22:36)
[2017-12-22] MEDS: THIAMINE HCL 100 MG TABLET (FP) PO SCH (22:36)
[2017-12-23] MEDS ORDERED: METHADONE HCL 10 MG TABLET ONE (03:54)
[2017-12-23] MEDS ORDERED: METHADONE HCL 40 MG DISPERSABLE TABLET ONE (03:55)
[2017-12-23] MEDS: METHADONE 80 MG, METHADONE 30 MG PO SCH (06:58)
[2017-12-23] MEDS: PRENATAL VITAMINS W/ FOLIC ACID TABLET (FP) PO SCH (09:13)
[2017-12-23] MEDS: BUDESONIDE/FORMETEROL FUMARATE 80/4.5 mcg INHALER IH SCH ×2 (09:13→21:49)
[2017-12-23] MEDS: diazePAM 5 MG TABLET PO SCH ×2 (09:13→21:49)
[2017-12-23] MEDS: RANITIDINE HCL 150 MG TABLET (FP) PO SCH ×2 (09:13→21:49)
[2017-12-23] MEDS: NICOTINE 21 MG/24 HOURS TOPICAL PATCH TD SCH (09:13)
[2017-12-23] MEDS: NICOTINE POLACRILEX 4 MG GUM BUC PRN ×4 (12:33→21:51)
--- NOTE | 2017-12-23 12:58 | PN ---
S CIWA - CIWA Score Nausea/Vomitin-Mild Nausea/No Vomiting Muscle Tremors: 2 Anxiety: 3 Agitation: 4-Moderately Restless Paroxysmal Sweats: 2 Orientation: 0-Oriented Tacttile Disturbances: 0-None Auditory Disturbances: 0-None Visual Disturbances: 0-None Headache: 0-None Present CIWA-Ar Total Score: 12 S Progress Note (SOAP) Subjective: Anxious, agitated, restless, sweating Objective: 12/23/17 12:51 Last Vital Signs Temp Pulse Resp BP Pulse Ox 97.0 F L 78 18 125/79 12/23/17 09:32 12/23/17 09:32 12/23/17 09:32 12/23/17 09:32 Laboratory Tests 12/21/17 12/21/17 12/22/17 14:30 17:00 06:00 WBC 5.4 RBC 4.33 Hgb 12.0 Hct 38.7 MCV 89.3 MCH 27.7 MCHC 31.0 L RDW 14.0 Plt Count 174 MPV 10.6 D Sodium Potassium Chloride Carbon Dioxide Anion Gap BUN Creatinine Creat Clearance w eGFR Random Glucose Calcium Total Bilirubin AST ALT Alkaline Phosphatase Total Protein Albumin Urine Color Dkyellow Urine Appearance Clear Urine pH 5.0 Ur Specific [place] 1.024 Urine Protein Negative Urine Glucose (UA) Negative Urine Ketones Negative Urine Blood Negative Urine Nitrite Negative Urine Bilirubin Negative Urine Urobilinogen 2.0 Ur Leukocyte Esterase Negative RPR Titer HIV 1&2 Antibody Screen Negative HIV P24 Antigen Negative 12/22/17 12/22/17 06:00 06:00 WBC RBC Hgb Hct MCV MCH MCHC RDW Plt Count MPV Sodium 141 Potassium 4.0 Chloride 109 H Carbon Dioxide 28 Anion Gap 4 L BUN 12 Creatinine 0.8 Creat Clearance w eGFR > 60 Random Glucose 80 Calcium 9.5 Total Bilirubin 0.5 AST 29 ALT 34 Alkaline Phosphatase 117 Total Protein 7.2 Albumin 3.8 Urine Color Urine Appearance Urine pH Ur Specific [place] Urine Protein Urine Glucose (UA) Urine Ketones Urine Blood Urine Nitrite Urine Bilirubin Urine Urobilinogen Ur Leukocyte Esterase RPR Titer Nonreactive HIV 1&2 Antibody Screen HIV P24 Antigen Labs reviewed Assessment: 12/23/17 12:58 Withdrawal sxs Plan: Continue detox Encouraged PO water intake for hydration
[2017-12-23] MEDS: THIAMINE HCL 100 MG TABLET (FP) PO SCH (21:48)
[2017-12-23] MEDS: QUEtiapine FUMARATE 100 MG TABLET (FP) PO SCH (21:49)
[2017-12-23] MEDS: MELATONIN 5 MG TABLETS PO PRN (21:49)
[2017-12-23] MEDS: MONTELUKAST NA 10 MG TABLET PO SCH (21:49)
[2017-12-24] MEDS ORDERED: METHADONE HCL 10 MG TABLET ONE (03:58)
[2017-12-24] MEDS ORDERED: METHADONE HCL 40 MG DISPERSABLE TABLET ONE (03:59)
[2017-12-24] MEDS: METHADONE 80 MG, METHADONE 30 MG PO SCH (07:19)
[2017-12-24] MEDS: NICOTINE POLACRILEX 4 MG GUM BUC PRN ×4 (08:48→20:31)
[2017-12-24] MEDS: RANITIDINE HCL 150 MG TABLET (FP) PO SCH ×2 (10:17→22:00)
[2017-12-24] MEDS: BUDESONIDE/FORMETEROL FUMARATE 80/4.5 mcg INHALER IH SCH ×2 (10:17→22:00)
[2017-12-24] MEDS: PRENATAL VITAMINS W/ FOLIC ACID TABLET (FP) PO SCH (10:17)
[2017-12-24] MEDS: diazePAM 5 MG TABLET PO SCH ×2 (10:17→22:00)
[2017-12-24] MEDS: NICOTINE 21 MG/24 HOURS TOPICAL PATCH TD SCH (10:19)
[2017-12-24] MEDS ORDERED: BISACODYL 5 MG TABLET.DR (FP) PO ONE (12:55)
--- NOTE | 2017-12-24 12:55 | PN ---
BHS Progress Note (SOAP) Subjective: Anxiety, sweating, interrupted sleep, constipation Objective: 12/24/17 12:53 Last Vital Signs Temp Pulse Resp BP Pulse Ox 97.2 F L 76 18 124/78 12/24/17 09:09 12/24/17 09:09 12/24/17 09:09 12/24/17 09:09 Laboratory Tests 12/21/17 12/21/17 12/22/17 14:30 17:00 06:00 WBC 5.4 RBC 4.33 Hgb 12.0 Hct 38.7 MCV 89.3 MCH 27.7 MCHC 31.0 L RDW 14.0 Plt Count 174 MPV 10.6 D Sodium Potassium Chloride Carbon Dioxide Anion Gap BUN Creatinine Creat Clearance w eGFR Random Glucose Calcium Total Bilirubin AST ALT Alkaline Phosphatase Total Protein Albumin Urine Color Dkyellow Urine Appearance Clear Urine pH 5.0 Ur Specific [place] 1.024 Urine Protein Negative Urine Glucose (UA) Negative Urine Ketones Negative Urine Blood Negative Urine Nitrite Negative Urine Bilirubin Negative Urine Urobilinogen 2.0 Ur Leukocyte Esterase Negative RPR Titer HIV 1&2 Antibody Screen Negative HIV P24 Antigen Negative 12/22/17 12/22/17 06:00 06:00 WBC RBC Hgb Hct MCV MCH MCHC RDW Plt Count MPV Sodium 141 Potassium 4.0 Chloride 109 H Carbon Dioxide 28 Anion Gap 4 L BUN 12 Creatinine 0.8 Creat Clearance w eGFR > 60 Random Glucose 80 Calcium 9.5 Total Bilirubin 0.5 AST 29 ALT 34 Alkaline Phosphatase 117 Total Protein 7.2 Albumin 3.8 Urine Color Urine Appearance Urine pH Ur Specific [place] Urine Protein Urine Glucose (UA) Urine Ketones Urine Blood Urine Nitrite Urine Bilirubin Urine Urobilinogen Ur Leukocyte Esterase RPR Titer Nonreactive HIV 1&2 Antibody Screen HIV P24 Antigen Labs reviewed Assessment: 12/24/17 12:54 Withdrawal sxs Plan: Continue detox Encouraged PO water intake
[2017-12-24] MEDS: QUEtiapine FUMARATE 100 MG TABLET (FP) PO SCH (22:00)
[2017-12-24] MEDS: MONTELUKAST NA 10 MG TABLET PO SCH (22:00)
[2017-12-24] MEDS: THIAMINE HCL 100 MG TABLET (FP) PO SCH (22:00)
[2017-12-25] MEDS: METHADONE 80 MG, METHADONE 30 MG PO SCH (07:59)
[2017-12-25] MEDS ORDERED: METHADONE HCL 10 MG TABLET PO ONE (08:28)
[2017-12-25] MEDS ORDERED: METHADONE 80 MG, METHADONE 30 MG PO ONE (08:35)
[2017-12-25] MEDS ORDERED: METHADONE HCL 10 MG TABLET ONE (08:55)
[2017-12-25] MEDS ORDERED: METHADONE HCL 40 MG DISPERSABLE TABLET ONE (08:55)
[2017-12-25] MEDS ORDERED: diazePAM 5 MG TABLET PO SCH (10:00)
[2017-12-25] MEDS: PRENATAL VITAMINS W/ FOLIC ACID TABLET (FP) PO SCH (10:05)
[2017-12-25] MEDS: BUDESONIDE/FORMETEROL FUMARATE 80/4.5 mcg INHALER IH SCH (10:05)
[2017-12-25] MEDS: RANITIDINE HCL 150 MG TABLET (FP) PO SCH (10:05)
[2017-12-25] MEDS: NICOTINE 21 MG/24 HOURS TOPICAL PATCH TD SCH (10:06)
[2017-12-25] MEDS: NICOTINE POLACRILEX 4 MG GUM BUC PRN ×3 (12:05→17:18)
--- NOTE | 2017-12-25 14:23 | DS ---
[facility] Detox Discharge Summary Admission Date: 12/21/17 Discharge Date: 12/25/17 - History Present History: Cocaine Dependence, Sedative Dependence, MMTP Pertinent Past History: Asthma GERD Seizure - Physical Exam Results Vital Signs: Vital Signs Temperature 96.7 F L 12/25/17 09:54 Pulse Rate 66 12/25/17 09:54 Respiratory Rate 20 12/25/17 09:54 Blood Pressure 110/80 12/25/17 09:54 O2 Sat by Pulse Oximetry (%) Pertinent Admission Physical Exam Findings: Withdrawal sxs Laboratory Tests 12/21/17 12/21/17 12/22/17 14:30 17:00 06:00 WBC 5.4 RBC 4.33 Hgb 12.0 Hct 38.7 MCV 89.3 MCH 27.7 MCHC 31.0 L RDW 14.0 Plt Count 174 MPV 10.6 D Sodium Potassium Chloride Carbon Dioxide Anion Gap BUN Creatinine Creat Clearance w eGFR Random Glucose Calcium Total Bilirubin AST ALT Alkaline Phosphatase Total Protein Albumin Urine Color Dkyellow Urine Appearance Clear Urine pH 5.0 Ur Specific [place] 1.024 Urine Protein Negative Urine Glucose (UA) Negative Urine Ketones Negative Urine Blood Negative Urine Nitrite Negative Urine Bilirubin Negative Urine Urobilinogen 2.0 Ur Leukocyte Esterase Negative RPR Titer HIV 1&2 Antibody Screen Negative HIV P24 Antigen Negative 12/22/17 12/22/17 06:00 06:00 WBC RBC Hgb Hct MCV MCH MCHC RDW Plt Count MPV Sodium 141 Potassium 4.0 Chloride 109 H Carbon Dioxide 28 Anion Gap 4 L BUN 12 Creatinine 0.8 Creat Clearance w eGFR > 60 Random Glucose 80 Calcium 9.5 Total Bilirubin 0.5 AST 29 ALT 34 Alkaline Phosphatase 117 Total Protein 7.2 Albumin 3.8 Urine Color Urine Appearance Urine pH Ur Specific [place] Urine Protein Urine Glucose (UA) Urine Ketones Urine Blood Urine Nitrite Urine Bilirubin Urine Urobilinogen Ur Leukocyte Esterase RPR Titer Nonreactive HIV 1&2 Antibody Screen HIV P24 Antigen Labs reviewed - Treatment Hospital Course: Detox Protocol Followed, Detoxed Safely, Responded well, Discharged Condition Good, Rehab Referral Accepted - Medication Discharge Medications: Ambulatory Orders hydrOXYzine HCL [Atarax -] 50 mg PO BID PRN 06/10/16 Salmeterol/Fluticasone [Advair 250Mcg/50Mcg] 1 inh PO BID 08/12/16 Paroxetine HCl [Paxil -] 10 mg PO DAILY #30 tablet 08/13/16 Quetiapine Fumarate [Seroquel] 100 mg PO HS #30 tablet 08/13/16 Montelukast Na [Singulair -] 10 mg PO HS #30 tablet 09/02/16 Paroxetine HCl [Paxil] 10 mg PO DAILY #30 tablet 06/26/17 Albuterol Sulfate Inhaler - [Ventolin HFA Inhaler -] 2 inh PO Q4H PRN #1 inhaler 07/15/17 Docusate Sodium [Colace -] 100 mg PO BID #60 cap 07/15/17 Ranitidine HCl [Zantac] 150 mg PO BID #60 tablet 07/15/17 Gabapentin [Neurontin -] 100 mg PO TID #90 capsule 07/16/17 - Diagnosis (1) Nicotine dependence Current Visit: Yes Status: Chronic Qualifiers: Nicotine product type: cigarettes Substance use status: in withdrawal Qualified Code(s): F17.213 - Nicotine dependence, cigarettes, with withdrawal (2) Sedative, hypnotic or anxiolytic dependence with withdrawal, uncomplicated Current Visit: Yes Status: Acute (3) Asthma Current Visit: Yes Status: Chronic Qualifiers: Asthma severity: mild Asthma persistence: unspecified Asthma complication type: uncomplicated Qualified Code(s): J45.909 - Unspecified asthma, uncomplicated (4) Cocaine dependence, uncomplicated Current Visit: Yes Status: Chronic (5) GERD (gastroesophageal reflux disease) Current Visit: Yes Status: Chronic Qualifiers: Esophagitis presence: without esophagitis Qualified Code(s): K21.9 - Gastro -esophageal reflux disease without esophagitis (6) Methadone maintenance therapy patient Current Visit: Yes Status: Chronic (7) History of seizures Current Visit: Yes Status: Chronic - AMA Did Patient Leave Against Medical Advice: No (F/U with your PCP within 1-2 weeks after rehab)
[2017-12-25 14:55] VITALS: PULSE 61
[2017-12-25 18:08] VITALS: BP 110/68; TEMP 99
== END 2017-12-25 18:33 | disposition other institution (70) | DRG 897 ==
LOC: YASAS 11:36 → Y3N 15:18
PROC: HZ2ZZZZ Detoxification Services for Substance Abuse Treatment (ICD-10-PCS; principal; 2017-12-21)
DX: F13.230 Sedative, hypnotic or anxiolytic dependence with withdrawal, uncomplicated (principal); F11.20 Opioid dependence, uncomplicated; F14.20 Cocaine dependence, uncomplicated; F19.282 Other psychoactive substance dependence with psychoactive substance-induced sleep disorder; F17.213 Nicotine dependence, cigarettes, with withdrawal; F19.24 Other psychoactive substance dependence with psychoactive substance-induced mood disorder; J45.909 Unspecified asthma, uncomplicated; K21.9 Gastro-esophageal reflux disease without esophagitis; B18.2 Chronic viral hepatitis C; Z88.6 Allergy status to analgesic agent; Z91.013 Allergy to seafood; Z86.69 Personal history of other diseases of the nervous system and sense organs; Z91.5 Personal history of self-harm; Z59.0 Homelessness
CPT/HCPCS: 36415; 80053; 81003; 85027; 86593; 87389; 93005; 93010

== ENCOUNTER 2017-12-25 19:01 | Inpatient (IN) | payer OTHER ==
--- NOTE | 2017-12-25 20:24 | PN ---
[facility] Progress Note Note: Psychiatric notes: As per nursing report patient started on preadmission medications: Seroquel 100mg po qhs Gabapentin 300mg po tid
[2017-12-25] MEDS ORDERED: P-EPHED 60MG/TRIPROLIDI 2.5MG TABLET PO PRN (21:17)
[2017-12-25] MEDS ORDERED: MAGNESIUM CITRATE 300 ML BOTTLE PO PRN (21:17)
[2017-12-25] MEDS ORDERED: ACETAMINOPHEN 325 MG TABLET (FP) PO PRN (21:17)
[2017-12-25] MEDS ORDERED: hydrOXYzine PAMOATE 50 MG CAPSULE (FP) PO PRN (21:17)
[2017-12-25] MEDS ORDERED: MAGNESIUM HYDROX 2400MG/30ML ORAL SUSPENSION 30 ML CUP PO PRN (21:17)
[2017-12-25] MEDS ORDERED: MENTHOL/PHENOL 1 EACH UD MM PRN (21:17)
[2017-12-25] MEDS ORDERED: LOPERAMIDE HCL 2 MG CAPSULE PO PRN (21:17)
[2017-12-25] MEDS ORDERED: guaiFENesin/D-METHORPHAN HB 10 ML UNIT-DOSE CUPS PO PRN (21:17)
[2017-12-25] MEDS ORDERED: MAG HYDROX/AL HYDROX/SIMETH 30 ML UNIT-DOSE CUP PO PRN (21:17)
--- NOTE | 2017-12-25 21:17 | HP ---
[facility] Rehab Assess/Revision - Admission History Ad[facility] to Rehab [facility] Date of Admission to Rehab: 12/25/2017 - Findings Detox History & Physical reviewed: Yes Concur with findings: Yes Comments/Additional Findings: Patient tolerated alcohol detox and now in early remission. Will continue on methadone maintenance.
[2017-12-25] MEDS ORDERED: ALBUTEROL SO4 8 GM HFA INHALER IH PRN (21:28)
[2017-12-25] MEDS: MONTELUKAST NA 10 MG TABLET PO SCH (22:18)
[2017-12-25] MEDS: DOCUSATE SODIUM 100 MG CAPSULE (FP) PO SCH (22:18)
[2017-12-25] MEDS: GABAPENTIN 100 MG CAPSULE (FP) PO SCH (22:18)
[2017-12-25] MEDS: QUEtiapine FUMARATE 100 MG TABLET (FP) PO SCH (22:18)
[2017-12-25] MEDS: THIAMINE HCL 100 MG TABLET (FP) PO SCH (22:18)
[2017-12-25] MEDS: RANITIDINE HCL 150 MG TABLET (FP) PO SCH (22:18)
[2017-12-26] MEDS: METHADONE HCL 10 MG TABLET PO SCH (07:00)
[2017-12-26] MEDS: GABAPENTIN 100 MG CAPSULE (FP) PO SCH ×3 (07:00→21:56)
[2017-12-26] MEDS: PRENATAL VITAMINS W/ FOLIC ACID TABLET (FP) PO SCH (09:35)
[2017-12-26] MEDS: DOCUSATE SODIUM 100 MG CAPSULE (FP) PO SCH ×2 (09:35→21:56)
[2017-12-26] MEDS: NICOTINE POLACRILEX 4 MG GUM BUC PRN ×3 (09:35→17:30)
[2017-12-26] MEDS: NICOTINE 21 MG/24 HOURS TOPICAL PATCH TD SCH (09:35)
[2017-12-26] MEDS: RANITIDINE HCL 150 MG TABLET (FP) PO SCH ×2 (09:35→21:56)
[2017-12-26] MEDS: MONTELUKAST NA 10 MG TABLET PO SCH (21:56)
[2017-12-26] MEDS: QUEtiapine FUMARATE 100 MG TABLET (FP) PO SCH (21:56)
[2017-12-26] MEDS: THIAMINE HCL 100 MG TABLET (FP) PO SCH (21:56)
[2017-12-27] MEDS: METHADONE HCL 10 MG TABLET PO SCH (06:20)
[2017-12-27] MEDS: GABAPENTIN 100 MG CAPSULE (FP) PO SCH ×3 (06:20→22:44)
[2017-12-27] MEDS: NICOTINE POLACRILEX 4 MG GUM BUC PRN ×6 (06:22→22:46)
[2017-12-27] MEDS: NICOTINE 21 MG/24 HOURS TOPICAL PATCH TD SCH (09:51)
[2017-12-27] MEDS: DOCUSATE SODIUM 100 MG CAPSULE (FP) PO SCH ×2 (09:51→22:44)
[2017-12-27] MEDS: RANITIDINE HCL 150 MG TABLET (FP) PO SCH ×2 (09:51→22:44)
[2017-12-27] MEDS: PRENATAL VITAMINS W/ FOLIC ACID TABLET (FP) PO SCH (09:51)
[2017-12-27] MEDS: THIAMINE HCL 100 MG TABLET (FP) PO SCH (22:44)
[2017-12-27] MEDS: MONTELUKAST NA 10 MG TABLET PO SCH (22:44)
[2017-12-27] MEDS: QUEtiapine FUMARATE 100 MG TABLET (FP) PO SCH (22:44)
[2017-12-28] MEDS ORDERED: METHADONE HCL 40 MG DISPERSABLE TABLET ONE (05:58)
[2017-12-28] MEDS ORDERED: METHADONE HCL 10 MG TABLET ONE (05:58)
[2017-12-28] MEDS: GABAPENTIN 100 MG CAPSULE (FP) PO SCH ×3 (06:10→21:56)
[2017-12-28] MEDS: METHADONE 80 MG, METHADONE 30 MG PO SCH (06:11)
[2017-12-28] MEDS: NICOTINE POLACRILEX 4 MG GUM BUC PRN ×6 (06:13→21:57)
--- NOTE | 2017-12-28 08:20 | HP ---
Psychiatrist Admission - Data Date of interview: 12/28/17 Admission source: Self-referred Identifying data: This is the first third [facility] inpatient rehabilitation admisson for this 47 year old single male father of a 11 years old daughter, unemployed on SSD, homeless Medical History: Significant for bronchial asthma, arthritis, GERD, history of treatment for hepatitis C and orthosurgery for right hip replacement. Patient is on methadone 110 mg/day. Smokes 10 cigarettes daily Psychiatric History: Patient is a poor, unreliable historian. Told remote mortgage underwriter that he was diagnosed with MDD and has has 4 previous psychiatric hospitalizations, first one in [place], Sec[place] in [place] and last two in [facility] [facility] most recent[facility] 7-8 months ago). Reports non-compliance with psychiatric outpatient treament but has medications prescribed by his primary care physicia. He is currently prescribed Paxil 10 mg po daily and Seroquel 100 mg po HS. Claims he does not take Paxil. He saw OMAIRA Ackerman on 12/22/17 while in detox and was prscribed Seroquel 100 mg po HS. Patient reports two suicide attempts via overdose and hanging self. Denies current suicidal ideations. Reports feeling well but sleeping poorly Physical/Sexual Abuse/Trauma History: Denies history of emotional, physical or sexual abuse as wel as DV relationship Additional Comment: Reports history of 5 previous misdemeanor arrests. Denies being on probation at present Vital Signs: Vital Signs - 24 hr 12/27/17 12/28/17 12/28/17 08:17 00:30 03:30 Temperature Pulse Rate 63 Respiratory 18 16 16 Rate Blood Pressure 107/69 12/28/17 06:57 Temperature 98.2 F Pulse Rate 61 Respiratory 18 Rate Blood Pressure 100/63 Allergies/Adverse Reactions: Allergies Allergy/AdvReac Type Severity Reaction Status Date / Time morphine Allergy Severe Rash Verified 12/21/17 14:05 fish Allergy Severe Rash Uncoded 12/21/17 14:05 Date of last physical exam: 12/21/17 Concur with the findings of this exam: Yes - Substance Abuse/Tx History Hx Substance Use: Yes (Currently attends [facility]) Substance Use Type: Cocaine (Started smoking crack cocaine at age 27, consumes $ 100 worth daily. Last smoked on 12/20/17), Tranquilizers (Started using xanax at age 46, consumes 6-12x 2 mg daily. Last used on 12/20/17) Hx Substance Use Treatment: Yes (4 previous inpt detox & 2 inpt rehab admissiond @ [facility]) Mental Status Exam - Mental Status Exam Alert and Oriented to: Time, Place, Person Cognitive Function: Fair Patient Appearance: Disheveled Mood: Hopeful, Euthymic Affect: Appropriate Patient Behavior: Cooperative Speech Pattern: Clear Voice Loudness: Normal Thought Process: Intact, Goal Oriented Thought Disorder: Not Present Hallucinations: Denies Suicidal Ideation: Denies Homicidal Ideation: Denies Insight/Judgement: Fair Sleep: Poorly Appetite: Good Muscle strength/Tone: Normal Gait/Station: Normal Psychiatric Findings - Problem List ([facility] 1, 2,3) (1) Cocaine dependence Current Visit: Yes Status: Acute (2) Sedative hypnotic or anxiolytic dependence Current Visit: Yes Status: Acute (3) Opioid dependence on agonist therapy Current Visit: No Status: Chronic (4) Nicotine dependence Current Visit: No Status: Chronic Qualifiers: Nicotine product type: cigarettes Substance use status: in withdrawal Qualified Code(s): F17.213 - Nicotine dependence, cigarettes, with withdrawal (5) Mood disorder Current Visit: Yes Status: Chronic (6) MDD (major depressive disorder) Current Visit: Yes Status: Ruled-out (7) Bipolar II disorder Current Visit: Yes Status: Ruled-out (8) Substance induced mood disorder Current Visit: Yes Status: Ruled-out (9) Substance-induced sleep disorder Current Visit: Yes Status: Acute (10) Asthma Current Visit: No Status: Chronic Qualifiers: Asthma severity: mild Asthma persistence: unspecified Asthma complication type: uncomplicated Qualified Code(s): J45.909 - Unspecified asthma, uncomplicated (11) GERD (gastroesophageal reflux disease) Current Visit: No Status: Chronic Qualifiers: Esophagitis presence: without esophagitis Qualified Code(s): K21.9 - Gastro -esophageal reflux disease without esophagitis (12) History of hepatitis C virus infection Current Visit: No Status: Chronic - Initial Treatment Plan Initial Treatment Plan: 1) Continue Seroquel 100 mg po HS. 2) Monitor progress
[2017-12-28] MEDS: NICOTINE 21 MG/24 HOURS TOPICAL PATCH TD SCH (10:10)
[2017-12-28] MEDS: RANITIDINE HCL 150 MG TABLET (FP) PO SCH ×2 (10:10→21:56)
[2017-12-28] MEDS: DOCUSATE SODIUM 100 MG CAPSULE (FP) PO SCH ×2 (10:10→21:56)
[2017-12-28] MEDS: PRENATAL VITAMINS W/ FOLIC ACID TABLET (FP) PO SCH (10:10)
[2017-12-28] MEDS: CYCLOBENZAPRINE HCL 10 MG TABLET (FP) PO SCH ×2 (14:55→21:56)
--- NOTE | 2017-12-28 16:08 | PN ---
BHS Progress Note Note: C/O PAIN RIGHT LEG S/P SURGERY 9 MONTHS AGO. Vital Signs - 24 hr 12/28/17 12/28/17 12/28/17 00:30 03:30 06:57 Temperature 98.2 F Pulse Rate 61 Respiratory 16 16 18 Rate Blood Pressure 100/63 FLEXERIL 10 MG PO TID DIRECTED. CANE DIRECTED FOR AMBULATION
[2017-12-28] MEDS: THIAMINE HCL 100 MG TABLET (FP) PO SCH (21:55)
[2017-12-28] MEDS: QUEtiapine FUMARATE 100 MG TABLET (FP) PO SCH (21:56)
[2017-12-28] MEDS: MONTELUKAST NA 10 MG TABLET PO SCH (21:56)
[2017-12-29] MEDS ORDERED: METHADONE HCL 40 MG DISPERSABLE TABLET ONE (03:16)
[2017-12-29] MEDS ORDERED: METHADONE HCL 10 MG TABLET ONE (03:16)
[2017-12-29] MEDS: CYCLOBENZAPRINE HCL 10 MG TABLET (FP) PO SCH ×3 (06:12→22:12)
[2017-12-29] MEDS: METHADONE 80 MG, METHADONE 30 MG PO SCH (06:12)
[2017-12-29] MEDS: GABAPENTIN 100 MG CAPSULE (FP) PO SCH ×3 (06:12→22:12)
[2017-12-29] MEDS: NICOTINE POLACRILEX 4 MG GUM BUC PRN ×6 (06:14→20:43)
[2017-12-29] MEDS: PRENATAL VITAMINS W/ FOLIC ACID TABLET (FP) PO SCH (09:52)
[2017-12-29] MEDS: DOCUSATE SODIUM 100 MG CAPSULE (FP) PO SCH ×2 (09:52→22:12)
[2017-12-29] MEDS: RANITIDINE HCL 150 MG TABLET (FP) PO SCH ×2 (09:52→22:12)
[2017-12-29] MEDS: NICOTINE 21 MG/24 HOURS TOPICAL PATCH TD SCH (09:52)
[2017-12-29] MEDS: QUEtiapine FUMARATE 100 MG TABLET (FP) PO SCH (22:12)
[2017-12-29] MEDS: THIAMINE HCL 100 MG TABLET (FP) PO SCH (22:12)
[2017-12-29] MEDS: MONTELUKAST NA 10 MG TABLET PO SCH (22:12)
[2017-12-30] MEDS ORDERED: METHADONE HCL 40 MG DISPERSABLE TABLET ONE (05:32)
[2017-12-30] MEDS ORDERED: METHADONE HCL 10 MG TABLET ONE (05:32)
[2017-12-30] MEDS: GABAPENTIN 100 MG CAPSULE (FP) PO SCH ×3 (06:07→22:00)
[2017-12-30] MEDS: METHADONE 80 MG, METHADONE 30 MG PO SCH (06:07)
[2017-12-30] MEDS: CYCLOBENZAPRINE HCL 10 MG TABLET (FP) PO SCH ×3 (06:07→22:00)
[2017-12-30] MEDS: NICOTINE POLACRILEX 4 MG GUM BUC PRN ×8 (06:10→23:08)
[2017-12-30] MEDS: PRENATAL VITAMINS W/ FOLIC ACID TABLET (FP) PO SCH (10:35)
[2017-12-30] MEDS: DOCUSATE SODIUM 100 MG CAPSULE (FP) PO SCH ×2 (10:35→22:00)
[2017-12-30] MEDS: RANITIDINE HCL 150 MG TABLET (FP) PO SCH ×2 (10:35→22:00)
[2017-12-30] MEDS: NICOTINE 21 MG/24 HOURS TOPICAL PATCH TD SCH (10:36)
[2017-12-30] MEDS: THIAMINE HCL 100 MG TABLET (FP) PO SCH (21:59)
[2017-12-30] MEDS: MONTELUKAST NA 10 MG TABLET PO SCH (22:00)
[2017-12-30] MEDS: QUEtiapine FUMARATE 100 MG TABLET (FP) PO SCH (22:00)
[2017-12-31] MEDS ORDERED: METHADONE HCL 10 MG TABLET ONE (05:35)
[2017-12-31] MEDS ORDERED: METHADONE HCL 40 MG DISPERSABLE TABLET ONE (05:35)
[2017-12-31] MEDS: CYCLOBENZAPRINE HCL 10 MG TABLET (FP) PO SCH ×3 (06:34→21:46)
[2017-12-31] MEDS: METHADONE 80 MG, METHADONE 30 MG PO SCH (06:34)
[2017-12-31] MEDS: GABAPENTIN 100 MG CAPSULE (FP) PO SCH ×3 (06:34→21:46)
[2017-12-31] MEDS: NICOTINE POLACRILEX 4 MG GUM BUC PRN ×6 (06:37→20:12)
[2017-12-31] MEDS: RANITIDINE HCL 150 MG TABLET (FP) PO SCH ×2 (09:54→21:46)
[2017-12-31] MEDS: NICOTINE 21 MG/24 HOURS TOPICAL PATCH TD SCH (09:54)
[2017-12-31] MEDS: PRENATAL VITAMINS W/ FOLIC ACID TABLET (FP) PO SCH (09:55)
[2017-12-31] MEDS: DOCUSATE SODIUM 100 MG CAPSULE (FP) PO SCH ×2 (10:51→21:46)
--- NOTE | 2017-12-31 12:35 | PN ---
BHS Progress Note Note: PT C/O LOWER BACK PAIN AND REQUESTING FOR LIDOCAINE PATCH. ALERT O X 3. NAD. PT IS OOB AMBULATING WITH STEADY GAIT. Vital Signs - 24 hr 12/31/17 12/31/17 12/31/17 00:30 03:30 06:46 Temperature 97.3 F L Pulse Rate 56 L Respiratory 18 18 18 Rate Blood Pressure 126/81 IMPRESSION:CHRONIC PAIN PLAN;LIDOCAINE PATCH DIRECTED ANALGESIC BALM DIRECTED.
[2017-12-31] MEDS: LIDOCAINE 5% TOPICAL PATCH TP SCH (14:38)
[2017-12-31] MEDS: QUEtiapine FUMARATE 100 MG TABLET (FP) PO SCH (21:46)
[2017-12-31] MEDS: THIAMINE HCL 100 MG TABLET (FP) PO SCH (21:46)
[2017-12-31] MEDS: MONTELUKAST NA 10 MG TABLET PO SCH (21:46)
[2017-12-31] MEDS: METHYL SALICYLATE/MENTHOL OINT 30 GM TUBE TP SCH (22:24)
[2017-12-31] MEDS: LIDOCAINE PATCH REMOVAL MC SCH (22:24)
[2018-01-01] MEDS ORDERED: METHADONE HCL 40 MG DISPERSABLE TABLET ONE (05:32)
[2018-01-01] MEDS ORDERED: METHADONE HCL 10 MG TABLET ONE (05:32)
[2018-01-01] MEDS: CYCLOBENZAPRINE HCL 10 MG TABLET (FP) PO SCH ×3 (06:24→21:59)
[2018-01-01] MEDS: METHADONE 80 MG, METHADONE 30 MG PO SCH (06:24)
[2018-01-01] MEDS: GABAPENTIN 100 MG CAPSULE (FP) PO SCH ×3 (06:24→21:59)
[2018-01-01] MEDS: NICOTINE POLACRILEX 4 MG GUM BUC PRN ×6 (06:27→20:51)
[2018-01-01] MEDS: RANITIDINE HCL 150 MG TABLET (FP) PO SCH ×2 (09:52→21:59)
[2018-01-01] MEDS: PRENATAL VITAMINS W/ FOLIC ACID TABLET (FP) PO SCH (09:52)
[2018-01-01] MEDS: DOCUSATE SODIUM 100 MG CAPSULE (FP) PO SCH ×2 (09:52→22:00)
[2018-01-01] MEDS: NICOTINE 21 MG/24 HOURS TOPICAL PATCH TD SCH (09:52)
[2018-01-01] MEDS: LIDOCAINE 5% TOPICAL PATCH TP SCH (09:53)
[2018-01-01] MEDS: THIAMINE HCL 100 MG TABLET (FP) PO SCH (21:59)
[2018-01-01] MEDS: QUEtiapine FUMARATE 100 MG TABLET (FP) PO SCH (21:59)
[2018-01-01] MEDS: MONTELUKAST NA 10 MG TABLET PO SCH (22:00)
[2018-01-01] MEDS: LIDOCAINE PATCH REMOVAL MC SCH (22:00)
[2018-01-01] MEDS: METHYL SALICYLATE/MENTHOL OINT 30 GM TUBE TP SCH (22:07)
[2018-01-02] MEDS ORDERED: METHADONE HCL 10 MG TABLET ONE (03:26)
[2018-01-02] MEDS ORDERED: METHADONE HCL 40 MG DISPERSABLE TABLET ONE (03:27)
[2018-01-02] MEDS: METHADONE 80 MG, METHADONE 30 MG PO SCH (06:15)
[2018-01-02] MEDS: GABAPENTIN 100 MG CAPSULE (FP) PO SCH ×3 (06:15→22:21)
[2018-01-02] MEDS: CYCLOBENZAPRINE HCL 10 MG TABLET (FP) PO SCH ×3 (06:15→22:21)
[2018-01-02] MEDS: NICOTINE POLACRILEX 4 MG GUM BUC PRN ×7 (06:16→22:23)
[2018-01-02] MEDS: DOCUSATE SODIUM 100 MG CAPSULE (FP) PO SCH ×2 (10:03→22:21)
[2018-01-02] MEDS: LIDOCAINE 5% TOPICAL PATCH TP SCH (10:03)
[2018-01-02] MEDS: PRENATAL VITAMINS W/ FOLIC ACID TABLET (FP) PO SCH (10:03)
[2018-01-02] MEDS: NICOTINE 21 MG/24 HOURS TOPICAL PATCH TD SCH (10:03)
[2018-01-02] MEDS: RANITIDINE HCL 150 MG TABLET (FP) PO SCH ×2 (10:03→22:21)
[2018-01-02] MEDS: MONTELUKAST NA 10 MG TABLET PO SCH (22:21)
[2018-01-02] MEDS: THIAMINE HCL 100 MG TABLET (FP) PO SCH (22:21)
[2018-01-02] MEDS: QUEtiapine FUMARATE 100 MG TABLET (FP) PO SCH (22:21)
[2018-01-02] MEDS: LIDOCAINE PATCH REMOVAL MC SCH (22:22)
[2018-01-02] MEDS: METHYL SALICYLATE/MENTHOL OINT 30 GM TUBE TP SCH (22:24)
[2018-01-03] MEDS ORDERED: METHADONE HCL 40 MG DISPERSABLE TABLET ONE (05:58)
[2018-01-03] MEDS ORDERED: METHADONE HCL 10 MG TABLET ONE (05:58)
[2018-01-03] MEDS: GABAPENTIN 100 MG CAPSULE (FP) PO SCH ×3 (05:59→21:52)
[2018-01-03] MEDS: METHADONE 80 MG, METHADONE 30 MG PO SCH (05:59)
[2018-01-03] MEDS: CYCLOBENZAPRINE HCL 10 MG TABLET (FP) PO SCH ×3 (06:00→21:52)
[2018-01-03] MEDS: NICOTINE POLACRILEX 4 MG GUM BUC PRN ×4 (08:26→20:01)
[2018-01-03] MEDS: RANITIDINE HCL 150 MG TABLET (FP) PO SCH ×2 (09:48→21:53)
[2018-01-03] MEDS: PRENATAL VITAMINS W/ FOLIC ACID TABLET (FP) PO SCH (09:48)
[2018-01-03] MEDS: DOCUSATE SODIUM 100 MG CAPSULE (FP) PO SCH ×2 (09:48→21:52)
[2018-01-03] MEDS: NICOTINE 21 MG/24 HOURS TOPICAL PATCH TD SCH (09:48)
[2018-01-03] MEDS: LIDOCAINE 5% TOPICAL PATCH TP SCH (09:48)
[2018-01-03] MEDS: MONTELUKAST NA 10 MG TABLET PO SCH (21:52)
[2018-01-03] MEDS: QUEtiapine FUMARATE 100 MG TABLET (FP) PO SCH (21:52)
[2018-01-03] MEDS: THIAMINE HCL 100 MG TABLET (FP) PO SCH (21:52)
[2018-01-03] MEDS: LIDOCAINE PATCH REMOVAL MC SCH (21:53)
[2018-01-03] MEDS: METHYL SALICYLATE/MENTHOL OINT 30 GM TUBE TP SCH (22:29)
[2018-01-04] MEDS ORDERED: METHADONE HCL 10 MG TABLET ONE (05:15)
[2018-01-04] MEDS ORDERED: METHADONE HCL 40 MG DISPERSABLE TABLET ONE (05:15)
[2018-01-04] MEDS: METHADONE 80 MG, METHADONE 30 MG PO SCH (06:12)
[2018-01-04] MEDS: CYCLOBENZAPRINE HCL 10 MG TABLET (FP) PO SCH ×3 (06:12→21:54)
[2018-01-04] MEDS: GABAPENTIN 100 MG CAPSULE (FP) PO SCH ×3 (06:12→21:55)
[2018-01-04] MEDS: NICOTINE POLACRILEX 4 MG GUM BUC PRN ×6 (06:13→21:55)
[2018-01-04] MEDS: DOCUSATE SODIUM 100 MG CAPSULE (FP) PO SCH ×2 (10:28→21:54)
[2018-01-04] MEDS: PRENATAL VITAMINS W/ FOLIC ACID TABLET (FP) PO SCH (10:28)
[2018-01-04] MEDS: LIDOCAINE 5% TOPICAL PATCH TP SCH (10:28)
[2018-01-04] MEDS: RANITIDINE HCL 150 MG TABLET (FP) PO SCH ×2 (10:28→21:55)
[2018-01-04] MEDS: NICOTINE 21 MG/24 HOURS TOPICAL PATCH TD SCH (10:29)
[2018-01-04] MEDS: IBUPROFEN 400 MG TABLET (FP) PO PRN (18:03)
[2018-01-04] MEDS: THIAMINE HCL 100 MG TABLET (FP) PO SCH (21:54)
[2018-01-04] MEDS: MELATONIN 5 MG TABLETS PO PRN (21:54)
[2018-01-04] MEDS: MONTELUKAST NA 10 MG TABLET PO SCH (21:54)
[2018-01-04] MEDS: QUEtiapine FUMARATE 100 MG TABLET (FP) PO SCH (21:54)
[2018-01-04] MEDS: LIDOCAINE PATCH REMOVAL MC SCH (21:56)
[2018-01-04] MEDS: METHYL SALICYLATE/MENTHOL OINT 30 GM TUBE TP SCH (22:11)
[2018-01-05] MEDS ORDERED: METHADONE HCL 40 MG DISPERSABLE TABLET ONE (03:14)
[2018-01-05] MEDS ORDERED: METHADONE HCL 10 MG TABLET ONE (03:14)
[2018-01-05] MEDS: GABAPENTIN 100 MG CAPSULE (FP) PO SCH ×3 (06:27→21:59)
[2018-01-05] MEDS: METHADONE 80 MG, METHADONE 30 MG PO SCH (06:27)
[2018-01-05] MEDS: CYCLOBENZAPRINE HCL 10 MG TABLET (FP) PO SCH ×3 (06:28→22:01)
[2018-01-05] MEDS: NICOTINE POLACRILEX 4 MG GUM BUC PRN ×4 (08:27→16:53)
[2018-01-05] MEDS: LIDOCAINE 5% TOPICAL PATCH TP SCH (10:21)
[2018-01-05] MEDS: RANITIDINE HCL 150 MG TABLET (FP) PO SCH ×2 (10:21→21:59)
[2018-01-05] MEDS: DOCUSATE SODIUM 100 MG CAPSULE (FP) PO SCH ×2 (10:21→21:59)
[2018-01-05] MEDS: NICOTINE 21 MG/24 HOURS TOPICAL PATCH TD SCH (10:21)
[2018-01-05] MEDS: PRENATAL VITAMINS W/ FOLIC ACID TABLET (FP) PO SCH (10:21)
[2018-01-05] MEDS: MONTELUKAST NA 10 MG TABLET PO SCH (21:59)
[2018-01-05] MEDS: THIAMINE HCL 100 MG TABLET (FP) PO SCH (21:59)
[2018-01-05] MEDS: MELATONIN 5 MG TABLETS PO PRN (21:59)
[2018-01-05] MEDS: QUEtiapine FUMARATE 100 MG TABLET (FP) PO SCH (21:59)
[2018-01-05] MEDS: LIDOCAINE PATCH REMOVAL MC SCH (22:00)
[2018-01-05] MEDS: METHYL SALICYLATE/MENTHOL OINT 30 GM TUBE TP SCH (22:01)
[2018-01-06] MEDS ORDERED: METHADONE HCL 40 MG DISPERSABLE TABLET ONE (05:39)
[2018-01-06] MEDS ORDERED: METHADONE HCL 10 MG TABLET ONE (05:39)
[2018-01-06] MEDS: CYCLOBENZAPRINE HCL 10 MG TABLET (FP) PO SCH ×3 (06:13→21:24)
[2018-01-06] MEDS: GABAPENTIN 100 MG CAPSULE (FP) PO SCH ×3 (06:13→21:25)
[2018-01-06] MEDS: METHADONE 80 MG, METHADONE 30 MG PO SCH (06:13)
[2018-01-06] MEDS: NICOTINE POLACRILEX 4 MG GUM BUC PRN ×6 (06:14→21:26)
[2018-01-06] MEDS: PRENATAL VITAMINS W/ FOLIC ACID TABLET (FP) PO SCH (10:12)
[2018-01-06] MEDS: RANITIDINE HCL 150 MG TABLET (FP) PO SCH ×2 (10:12→21:25)
[2018-01-06] MEDS: DOCUSATE SODIUM 100 MG CAPSULE (FP) PO SCH ×2 (10:12→21:25)
[2018-01-06] MEDS: LIDOCAINE 5% TOPICAL PATCH TP SCH (10:12)
[2018-01-06] MEDS: NICOTINE 21 MG/24 HOURS TOPICAL PATCH TD SCH (10:13)
[2018-01-06] MEDS: MONTELUKAST NA 10 MG TABLET PO SCH (21:24)
[2018-01-06] MEDS: QUEtiapine FUMARATE 100 MG TABLET (FP) PO SCH (21:25)
[2018-01-06] MEDS: THIAMINE HCL 100 MG TABLET (FP) PO SCH (21:25)
[2018-01-06] MEDS: LIDOCAINE PATCH REMOVAL MC SCH (21:26)
[2018-01-06] MEDS: METHYL SALICYLATE/MENTHOL OINT 30 GM TUBE TP SCH (22:29)
[2018-01-07] MEDS ORDERED: METHADONE HCL 40 MG DISPERSABLE TABLET ONE (02:52)
[2018-01-07] MEDS ORDERED: METHADONE HCL 10 MG TABLET ONE (02:52)
[2018-01-07] MEDS: METHADONE 80 MG, METHADONE 30 MG PO SCH (06:10)
[2018-01-07] MEDS: GABAPENTIN 100 MG CAPSULE (FP) PO SCH ×3 (06:11→22:00)
[2018-01-07] MEDS: CYCLOBENZAPRINE HCL 10 MG TABLET (FP) PO SCH ×3 (06:11→22:00)
[2018-01-07] MEDS: NICOTINE POLACRILEX 4 MG GUM BUC PRN ×7 (06:12→20:09)
[2018-01-07] MEDS: LIDOCAINE 5% TOPICAL PATCH TP SCH (10:06)
[2018-01-07] MEDS: PRENATAL VITAMINS W/ FOLIC ACID TABLET (FP) PO SCH (10:08)
[2018-01-07] MEDS: NICOTINE 21 MG/24 HOURS TOPICAL PATCH TD SCH (10:08)
[2018-01-07] MEDS: DOCUSATE SODIUM 100 MG CAPSULE (FP) PO SCH ×2 (10:08→22:00)
[2018-01-07] MEDS: RANITIDINE HCL 150 MG TABLET (FP) PO SCH ×2 (10:08→22:00)
[2018-01-07] MEDS: MONTELUKAST NA 10 MG TABLET PO SCH (22:00)
[2018-01-07] MEDS: THIAMINE HCL 100 MG TABLET (FP) PO SCH (22:00)
[2018-01-07] MEDS: QUEtiapine FUMARATE 100 MG TABLET (FP) PO SCH (22:00)
[2018-01-07] MEDS: LIDOCAINE PATCH REMOVAL MC SCH (22:01)
[2018-01-07] MEDS: METHYL SALICYLATE/MENTHOL OINT 30 GM TUBE TP SCH (22:01)
[2018-01-08] MEDS ORDERED: METHADONE HCL 10 MG TABLET ONE (04:12)
[2018-01-08] MEDS ORDERED: METHADONE HCL 40 MG DISPERSABLE TABLET ONE (04:13)
[2018-01-08] MEDS: METHADONE 80 MG, METHADONE 30 MG PO SCH (06:13)
[2018-01-08] MEDS: GABAPENTIN 100 MG CAPSULE (FP) PO SCH ×3 (06:14→21:54)
[2018-01-08] MEDS: CYCLOBENZAPRINE HCL 10 MG TABLET (FP) PO SCH ×3 (06:14→21:56)
[2018-01-08] MEDS: NICOTINE POLACRILEX 4 MG GUM BUC PRN ×6 (06:14→20:21)
[2018-01-08] MEDS: RANITIDINE HCL 150 MG TABLET (FP) PO SCH ×2 (10:11→21:54)
[2018-01-08] MEDS: LIDOCAINE 5% TOPICAL PATCH TP SCH (10:11)
[2018-01-08] MEDS: PRENATAL VITAMINS W/ FOLIC ACID TABLET (FP) PO SCH (10:11)
[2018-01-08] MEDS: NICOTINE 21 MG/24 HOURS TOPICAL PATCH TD SCH (10:11)
[2018-01-08] MEDS: DOCUSATE SODIUM 100 MG CAPSULE (FP) PO SCH ×2 (10:11→21:54)
[2018-01-08] MEDS: THIAMINE HCL 100 MG TABLET (FP) PO SCH (21:54)
[2018-01-08] MEDS: QUEtiapine FUMARATE 100 MG TABLET (FP) PO SCH (21:54)
[2018-01-08] MEDS: MONTELUKAST NA 10 MG TABLET PO SCH (21:54)
[2018-01-08] MEDS: LIDOCAINE PATCH REMOVAL MC SCH (21:56)
[2018-01-08] MEDS: METHYL SALICYLATE/MENTHOL OINT 30 GM TUBE TP SCH (22:00)
[2018-01-09] MEDS ORDERED: METHADONE HCL 40 MG DISPERSABLE TABLET ONE (04:14)
[2018-01-09] MEDS ORDERED: METHADONE HCL 10 MG TABLET ONE (04:14)
[2018-01-09] MEDS: METHADONE 80 MG, METHADONE 30 MG PO SCH (06:04)
[2018-01-09] MEDS: NICOTINE POLACRILEX 4 MG GUM BUC PRN ×4 (06:05→17:30)
[2018-01-09] MEDS: GABAPENTIN 100 MG CAPSULE (FP) PO SCH ×3 (06:05→22:00)
[2018-01-09] MEDS: CYCLOBENZAPRINE HCL 10 MG TABLET (FP) PO SCH ×3 (06:05→22:08)
[2018-01-09] MEDS: DOCUSATE SODIUM 100 MG CAPSULE (FP) PO SCH ×2 (10:20→21:59)
[2018-01-09] MEDS: NICOTINE 21 MG/24 HOURS TOPICAL PATCH TD SCH (10:20)
[2018-01-09] MEDS: RANITIDINE HCL 150 MG TABLET (FP) PO SCH ×2 (10:20→22:00)
[2018-01-09] MEDS: PRENATAL VITAMINS W/ FOLIC ACID TABLET (FP) PO SCH (10:20)
[2018-01-09] MEDS: LIDOCAINE 5% TOPICAL PATCH TP SCH (10:20)
[2018-01-09] MEDS: THIAMINE HCL 100 MG TABLET (FP) PO SCH (21:59)
[2018-01-09] MEDS: MELATONIN 5 MG TABLETS PO PRN (21:59)
[2018-01-09] MEDS: MONTELUKAST NA 10 MG TABLET PO SCH (22:00)
[2018-01-09] MEDS: QUEtiapine FUMARATE 100 MG TABLET (FP) PO SCH (22:00)
[2018-01-09] MEDS: LIDOCAINE PATCH REMOVAL MC SCH (22:01)
[2018-01-09] MEDS: METHYL SALICYLATE/MENTHOL OINT 30 GM TUBE TP SCH (22:07)
[2018-01-10] MEDS ORDERED: METHADONE HCL 10 MG TABLET ONE (04:06)
[2018-01-10] MEDS ORDERED: METHADONE HCL 40 MG DISPERSABLE TABLET ONE (04:07)
[2018-01-10] MEDS: GABAPENTIN 100 MG CAPSULE (FP) PO SCH ×3 (06:14→21:42)
[2018-01-10] MEDS: CYCLOBENZAPRINE HCL 10 MG TABLET (FP) PO SCH ×3 (06:14→21:43)
[2018-01-10] MEDS: METHADONE 80 MG, METHADONE 30 MG PO SCH (06:14)
[2018-01-10] MEDS: NICOTINE POLACRILEX 4 MG GUM BUC PRN ×5 (06:15→19:50)
[2018-01-10] MEDS: RANITIDINE HCL 150 MG TABLET (FP) PO SCH ×2 (10:11→21:42)
[2018-01-10] MEDS: PRENATAL VITAMINS W/ FOLIC ACID TABLET (FP) PO SCH (10:11)
[2018-01-10] MEDS: LIDOCAINE 5% TOPICAL PATCH TP SCH (10:11)
[2018-01-10] MEDS: DOCUSATE SODIUM 100 MG CAPSULE (FP) PO SCH ×2 (10:11→21:41)
[2018-01-10] MEDS: NICOTINE 21 MG/24 HOURS TOPICAL PATCH TD SCH (10:12)
[2018-01-10] MEDS: QUEtiapine FUMARATE 100 MG TABLET (FP) PO SCH (21:41)
[2018-01-10] MEDS: THIAMINE HCL 100 MG TABLET (FP) PO SCH (21:41)
[2018-01-10] MEDS: MONTELUKAST NA 10 MG TABLET PO SCH (21:41)
[2018-01-10] MEDS: LIDOCAINE PATCH REMOVAL MC SCH (21:42)
[2018-01-10] MEDS: METHYL SALICYLATE/MENTHOL OINT 30 GM TUBE TP SCH (23:12)
[2018-01-11] MEDS ORDERED: METHADONE HCL 40 MG DISPERSABLE TABLET ONE (03:11)
[2018-01-11] MEDS ORDERED: METHADONE HCL 10 MG TABLET ONE (03:11)
[2018-01-11] MEDS: METHADONE 80 MG, METHADONE 30 MG PO SCH (06:10)
[2018-01-11] MEDS: GABAPENTIN 100 MG CAPSULE (FP) PO SCH ×3 (06:13→22:09)
[2018-01-11] MEDS: CYCLOBENZAPRINE HCL 10 MG TABLET (FP) PO SCH ×3 (06:13→22:09)
[2018-01-11] MEDS: NICOTINE POLACRILEX 4 MG GUM BUC PRN ×6 (06:14→22:12)
[2018-01-11] MEDS: PRENATAL VITAMINS W/ FOLIC ACID TABLET (FP) PO SCH (10:21)
[2018-01-11] MEDS: LIDOCAINE 5% TOPICAL PATCH TP SCH (10:21)
[2018-01-11] MEDS: DOCUSATE SODIUM 100 MG CAPSULE (FP) PO SCH ×2 (10:21→22:09)
[2018-01-11] MEDS: NICOTINE 21 MG/24 HOURS TOPICAL PATCH TD SCH (10:22)
[2018-01-11] MEDS: RANITIDINE HCL 150 MG TABLET (FP) PO SCH ×2 (10:22→22:09)
[2018-01-11] MEDS: THIAMINE HCL 100 MG TABLET (FP) PO SCH (22:09)
[2018-01-11] MEDS: QUEtiapine FUMARATE 100 MG TABLET (FP) PO SCH (22:09)
[2018-01-11] MEDS: LIDOCAINE PATCH REMOVAL MC SCH (22:09)
[2018-01-11] MEDS: MONTELUKAST NA 10 MG TABLET PO SCH (22:10)
[2018-01-11] MEDS: METHYL SALICYLATE/MENTHOL OINT 30 GM TUBE TP SCH (22:59)
[2018-01-12] MEDS ORDERED: METHADONE HCL 40 MG DISPERSABLE TABLET ONE (04:02)
[2018-01-12] MEDS ORDERED: METHADONE HCL 10 MG TABLET ONE (04:02)
[2018-01-12] MEDS: METHADONE 80 MG, METHADONE 30 MG PO SCH (06:20)
[2018-01-12] MEDS: CYCLOBENZAPRINE HCL 10 MG TABLET (FP) PO SCH ×3 (06:20→21:59)
[2018-01-12] MEDS: NICOTINE POLACRILEX 4 MG GUM BUC PRN ×6 (06:20→19:00)
[2018-01-12] MEDS: GABAPENTIN 100 MG CAPSULE (FP) PO SCH ×3 (06:20→21:57)
[2018-01-12] MEDS: PRENATAL VITAMINS W/ FOLIC ACID TABLET (FP) PO SCH (10:04)
[2018-01-12] MEDS: DOCUSATE SODIUM 100 MG CAPSULE (FP) PO SCH ×2 (10:04→21:57)
[2018-01-12] MEDS: RANITIDINE HCL 150 MG TABLET (FP) PO SCH ×2 (10:04→21:57)
[2018-01-12] MEDS: NICOTINE 21 MG/24 HOURS TOPICAL PATCH TD SCH (10:05)
[2018-01-12] MEDS: LIDOCAINE 5% TOPICAL PATCH TP SCH (10:05)
[2018-01-12] MEDS: IBUPROFEN 400 MG TABLET (FP) PO PRN (15:12)
[2018-01-12] MEDS: MELATONIN 5 MG TABLETS PO PRN (21:57)
[2018-01-12] MEDS: QUEtiapine FUMARATE 100 MG TABLET (FP) PO SCH (21:57)
[2018-01-12] MEDS: THIAMINE HCL 100 MG TABLET (FP) PO SCH (21:57)
[2018-01-12] MEDS: MONTELUKAST NA 10 MG TABLET PO SCH (21:57)
[2018-01-12] MEDS: LIDOCAINE PATCH REMOVAL MC SCH (21:59)
[2018-01-12] MEDS: METHYL SALICYLATE/MENTHOL OINT 30 GM TUBE TP SCH (21:59)
[2018-01-13] MEDS ORDERED: METHADONE HCL 10 MG TABLET ONE (04:12)
[2018-01-13] MEDS ORDERED: METHADONE HCL 40 MG DISPERSABLE TABLET ONE (04:13)
[2018-01-13] MEDS: METHADONE 80 MG, METHADONE 30 MG PO SCH (06:16)
[2018-01-13] MEDS: GABAPENTIN 100 MG CAPSULE (FP) PO SCH ×3 (06:16→22:20)
[2018-01-13] MEDS: CYCLOBENZAPRINE HCL 10 MG TABLET (FP) PO SCH ×3 (06:17→22:21)
[2018-01-13] MEDS: NICOTINE POLACRILEX 4 MG GUM BUC PRN ×5 (06:17→22:49)
[2018-01-13] MEDS: RANITIDINE HCL 150 MG TABLET (FP) PO SCH ×2 (10:33→22:20)
[2018-01-13] MEDS: LIDOCAINE 5% TOPICAL PATCH TP SCH (10:33)
[2018-01-13] MEDS: NICOTINE 21 MG/24 HOURS TOPICAL PATCH TD SCH (10:33)
[2018-01-13] MEDS: DOCUSATE SODIUM 100 MG CAPSULE (FP) PO SCH ×2 (10:33→22:20)
[2018-01-13] MEDS: PRENATAL VITAMINS W/ FOLIC ACID TABLET (FP) PO SCH (10:33)
[2018-01-13] MEDS: THIAMINE HCL 100 MG TABLET (FP) PO SCH (22:20)
[2018-01-13] MEDS: MONTELUKAST NA 10 MG TABLET PO SCH (22:20)
[2018-01-13] MEDS: QUEtiapine FUMARATE 100 MG TABLET (FP) PO SCH (22:20)
[2018-01-13] MEDS: METHYL SALICYLATE/MENTHOL OINT 30 GM TUBE TP SCH (22:20)
[2018-01-13] MEDS: LIDOCAINE PATCH REMOVAL MC SCH (22:21)
[2018-01-14] MEDS ORDERED: METHADONE HCL 40 MG DISPERSABLE TABLET ONE (04:12)
[2018-01-14] MEDS ORDERED: METHADONE HCL 10 MG TABLET ONE (04:12)
[2018-01-14] MEDS: NICOTINE POLACRILEX 4 MG GUM BUC PRN ×4 (06:25→18:52)
[2018-01-14] MEDS: METHADONE 80 MG, METHADONE 30 MG PO SCH (06:25)
[2018-01-14] MEDS: CYCLOBENZAPRINE HCL 10 MG TABLET (FP) PO SCH ×3 (06:25→22:06)
[2018-01-14] MEDS: GABAPENTIN 100 MG CAPSULE (FP) PO SCH ×3 (06:25→22:04)
[2018-01-14] MEDS: LIDOCAINE 5% TOPICAL PATCH TP SCH (10:23)
[2018-01-14] MEDS: NICOTINE 21 MG/24 HOURS TOPICAL PATCH TD SCH (10:23)
[2018-01-14] MEDS: RANITIDINE HCL 150 MG TABLET (FP) PO SCH ×2 (10:23→22:04)
[2018-01-14] MEDS: DOCUSATE SODIUM 100 MG CAPSULE (FP) PO SCH ×2 (10:23→22:05)
[2018-01-14] MEDS: PRENATAL VITAMINS W/ FOLIC ACID TABLET (FP) PO SCH (10:23)
[2018-01-14] MEDS: MELATONIN 5 MG TABLETS PO PRN (22:04)
[2018-01-14] MEDS: THIAMINE HCL 100 MG TABLET (FP) PO SCH (22:04)
[2018-01-14] MEDS: QUEtiapine FUMARATE 100 MG TABLET (FP) PO SCH (22:05)
[2018-01-14] MEDS: MONTELUKAST NA 10 MG TABLET PO SCH (22:06)
[2018-01-14] MEDS: LIDOCAINE PATCH REMOVAL MC SCH (22:06)
[2018-01-14] MEDS: METHYL SALICYLATE/MENTHOL OINT 30 GM TUBE TP SCH (23:30)
[2018-01-15] MEDS ORDERED: METHADONE HCL 40 MG DISPERSABLE TABLET ONE (04:13)
[2018-01-15] MEDS ORDERED: METHADONE HCL 10 MG TABLET ONE (04:13)
[2018-01-15] MEDS: NICOTINE POLACRILEX 4 MG GUM BUC PRN ×5 (06:28→20:22)
[2018-01-15] MEDS: METHADONE 80 MG, METHADONE 30 MG PO SCH (06:28)
[2018-01-15] MEDS: GABAPENTIN 100 MG CAPSULE (FP) PO SCH ×3 (06:28→21:59)
[2018-01-15] MEDS: CYCLOBENZAPRINE HCL 10 MG TABLET (FP) PO SCH ×3 (06:28→22:01)
[2018-01-15] MEDS: RANITIDINE HCL 150 MG TABLET (FP) PO SCH ×2 (09:02→21:59)
[2018-01-15] MEDS: IBUPROFEN 400 MG TABLET (FP) PO PRN (09:02)
[2018-01-15] MEDS: LIDOCAINE 5% TOPICAL PATCH TP SCH (09:02)
[2018-01-15] MEDS: DOCUSATE SODIUM 100 MG CAPSULE (FP) PO SCH ×2 (09:02→21:59)
[2018-01-15] MEDS: PRENATAL VITAMINS W/ FOLIC ACID TABLET (FP) PO SCH (09:02)
[2018-01-15] MEDS: NICOTINE 21 MG/24 HOURS TOPICAL PATCH TD SCH (09:04)
[2018-01-15] MEDS: MELATONIN 5 MG TABLETS PO PRN (21:59)
[2018-01-15] MEDS: QUEtiapine FUMARATE 100 MG TABLET (FP) PO SCH (21:59)
[2018-01-15] MEDS: MONTELUKAST NA 10 MG TABLET PO SCH (21:59)
[2018-01-15] MEDS: THIAMINE HCL 100 MG TABLET (FP) PO SCH (21:59)
[2018-01-15] MEDS: METHYL SALICYLATE/MENTHOL OINT 30 GM TUBE TP SCH (22:01)
[2018-01-15] MEDS: LIDOCAINE PATCH REMOVAL MC SCH (22:01)
[2018-01-16] MEDS ORDERED: METHADONE HCL 10 MG TABLET ONE (02:57)
[2018-01-16] MEDS ORDERED: METHADONE HCL 40 MG DISPERSABLE TABLET ONE (02:58)
[2018-01-16] MEDS: GABAPENTIN 100 MG CAPSULE (FP) PO SCH ×3 (05:52→21:57)
[2018-01-16] MEDS: CYCLOBENZAPRINE HCL 10 MG TABLET (FP) PO SCH ×3 (05:52→21:57)
[2018-01-16] MEDS: METHADONE 80 MG, METHADONE 30 MG PO SCH (05:53)
[2018-01-16] MEDS: NICOTINE POLACRILEX 4 MG GUM BUC PRN ×6 (05:54→20:51)
[2018-01-16] MEDS: DOCUSATE SODIUM 100 MG CAPSULE (FP) PO SCH ×2 (10:14→21:57)
[2018-01-16] MEDS: RANITIDINE HCL 150 MG TABLET (FP) PO SCH ×2 (10:14→21:57)
[2018-01-16] MEDS: PRENATAL VITAMINS W/ FOLIC ACID TABLET (FP) PO SCH (10:14)
[2018-01-16] MEDS: NICOTINE 21 MG/24 HOURS TOPICAL PATCH TD SCH (10:16)
[2018-01-16] MEDS: LIDOCAINE 5% TOPICAL PATCH TP SCH (10:36)
[2018-01-16] MEDS: MONTELUKAST NA 10 MG TABLET PO SCH (21:57)
[2018-01-16] MEDS: THIAMINE HCL 100 MG TABLET (FP) PO SCH (21:57)
[2018-01-16] MEDS: QUEtiapine FUMARATE 100 MG TABLET (FP) PO SCH (21:57)
[2018-01-16] MEDS: LIDOCAINE PATCH REMOVAL MC SCH (22:04)
[2018-01-16] MEDS: METHYL SALICYLATE/MENTHOL OINT 30 GM TUBE TP SCH (22:04)
[2018-01-17] MEDS ORDERED: METHADONE HCL 40 MG DISPERSABLE TABLET ONE (06:24)
[2018-01-17] MEDS ORDERED: METHADONE HCL 10 MG TABLET ONE (06:24)
[2018-01-17] MEDS ORDERED: METHADONE HCL 10 MG TABLET PO SCH (06:30)
[2018-01-17] MEDS: GABAPENTIN 100 MG CAPSULE (FP) PO SCH ×3 (06:34→21:59)
[2018-01-17] MEDS: METHADONE 80 MG, METHADONE 30 MG PO SCH (06:35)
[2018-01-17] MEDS: CYCLOBENZAPRINE HCL 10 MG TABLET (FP) PO SCH ×3 (06:35→22:00)
[2018-01-17] MEDS: NICOTINE POLACRILEX 4 MG GUM BUC PRN ×7 (06:37→22:01)
[2018-01-17] MEDS: PRENATAL VITAMINS W/ FOLIC ACID TABLET (FP) PO SCH (10:22)
[2018-01-17] MEDS: LIDOCAINE 5% TOPICAL PATCH TP SCH (10:23)
[2018-01-17] MEDS: RANITIDINE HCL 150 MG TABLET (FP) PO SCH ×2 (10:23→21:59)
[2018-01-17] MEDS: DOCUSATE SODIUM 100 MG CAPSULE (FP) PO SCH ×2 (10:23→21:59)
[2018-01-17] MEDS: NICOTINE 21 MG/24 HOURS TOPICAL PATCH TD SCH (10:24)
[2018-01-17] MEDS ORDERED: PT OWN MED DRAWER 7, Y5N ONE (19:54)
[2018-01-17] MEDS: MONTELUKAST NA 10 MG TABLET PO SCH (21:58)
[2018-01-17] MEDS: QUEtiapine FUMARATE 100 MG TABLET (FP) PO SCH (21:58)
[2018-01-17] MEDS: THIAMINE HCL 100 MG TABLET (FP) PO SCH (21:59)
[2018-01-17] MEDS: LIDOCAINE PATCH REMOVAL MC SCH (22:02)
[2018-01-17] MEDS: METHYL SALICYLATE/MENTHOL OINT 30 GM TUBE TP SCH (22:25)
[2018-01-18] MEDS ORDERED: METHADONE HCL 40 MG DISPERSABLE TABLET ONE (04:01)
[2018-01-18] MEDS ORDERED: METHADONE HCL 10 MG TABLET ONE (04:01)
[2018-01-18] MEDS: NICOTINE POLACRILEX 4 MG GUM BUC PRN ×3 (05:52→09:56)
[2018-01-18] MEDS: GABAPENTIN 100 MG CAPSULE (FP) PO SCH ×3 (05:52→21:54)
[2018-01-18] MEDS: METHADONE 80 MG, METHADONE 30 MG PO SCH (05:52)
[2018-01-18] MEDS: CYCLOBENZAPRINE HCL 10 MG TABLET (FP) PO SCH ×3 (06:00→21:54)
[2018-01-18] MEDS: RANITIDINE HCL 150 MG TABLET (FP) PO SCH ×2 (09:54→21:53)
[2018-01-18] MEDS: LIDOCAINE 5% TOPICAL PATCH TP SCH (09:54)
[2018-01-18] MEDS: PRENATAL VITAMINS W/ FOLIC ACID TABLET (FP) PO SCH (09:54)
[2018-01-18] MEDS: DOCUSATE SODIUM 100 MG CAPSULE (FP) PO SCH ×2 (09:54→21:53)
[2018-01-18] MEDS: NICOTINE 21 MG/24 HOURS TOPICAL PATCH TD SCH (09:55)
[2018-01-18] MEDS: MONTELUKAST NA 10 MG TABLET PO SCH (21:53)
[2018-01-18] MEDS: QUEtiapine FUMARATE 100 MG TABLET (FP) PO SCH (21:54)
[2018-01-18] MEDS: THIAMINE HCL 100 MG TABLET (FP) PO SCH (21:54)
[2018-01-18] MEDS: LIDOCAINE PATCH REMOVAL MC SCH (21:57)
[2018-01-18] MEDS: METHYL SALICYLATE/MENTHOL OINT 30 GM TUBE TP SCH (23:05)
[2018-01-19] MEDS ORDERED: METHADONE HCL 10 MG TABLET ONE (04:42)
[2018-01-19] MEDS ORDERED: METHADONE HCL 40 MG DISPERSABLE TABLET ONE (04:42)
[2018-01-19] MEDS: METHADONE 80 MG, METHADONE 30 MG PO SCH (06:12)
[2018-01-19] MEDS: NICOTINE POLACRILEX 4 MG GUM BUC PRN ×5 (06:13→16:55)
[2018-01-19] MEDS: GABAPENTIN 100 MG CAPSULE (FP) PO SCH ×3 (06:13→22:13)
[2018-01-19] MEDS: CYCLOBENZAPRINE HCL 10 MG TABLET (FP) PO SCH ×3 (06:13→22:15)
[2018-01-19] MEDS: PRENATAL VITAMINS W/ FOLIC ACID TABLET (FP) PO SCH (10:24)
[2018-01-19] MEDS: LIDOCAINE 5% TOPICAL PATCH TP SCH (10:24)
[2018-01-19] MEDS: NICOTINE 21 MG/24 HOURS TOPICAL PATCH TD SCH (10:24)
[2018-01-19] MEDS: DOCUSATE SODIUM 100 MG CAPSULE (FP) PO SCH ×2 (10:24→22:12)
[2018-01-19] MEDS: RANITIDINE HCL 150 MG TABLET (FP) PO SCH ×2 (10:24→22:13)
--- NOTE | 2018-01-19 13:40 | PN ---
Psychiatric Progress Note Vital Signs: Vital Signs Period Temp Pulse Resp BP Sys/Tavares Pulse Ox Last 24 Hr 97.6 F 69 18-18 103/72 Date of Session: 01/19/18 Chief Complaint:: Discharge Note HPI: Patient addressing Cocaine and Sedative Dependence comorbid with Opioid Dependence on Agonist Therapy, Nicotine Dependence and Substance-Induced Sleep Disorder ROS: Asthma, GERD, Hep C were medically managed Current Medications: Active Medications Generic Name Dose Route Start Last Admin Trade Name Freq PRN Reason Stop Dose Admin Acetaminophen 650 mg 12/25/17 21:17 Tylenol - PO Q4H PRN FEVER Al Hydroxide/Mg Hydroxide 30 ml 12/25/17 21:17 01/05/18 19:46 Mylanta Oral Suspension - PO 30 ml Q6H PRN Administration DYSPEPSIA Albuterol Sulfate 2 puff 12/25/17 21:28 Ventolin Hfa Inhaler - IH Q4H PRN ASTHMA Cyclobenzaprine HCl 10 mg 12/28/17 14:00 01/19/18 06:13 Flexeril - PO Not Given TID AMEENA Docusate Sodium 100 mg 12/25/17 22:00 01/19/18 10:24 Colace - PO 100 mg BID AMEENA Administration Eucalyptus/Menthol/Phenol/Sorbitol 1 each 12/25/17 21:17 Cepastat Lozenge - MM Q4H PRN SORE THROAT Gabapentin 100 mg 12/25/17 22:00 01/19/18 06:13 Neurontin - PO 100 mg TID AMEENA Administration Guaifenesin 10 ml 12/25/17 21:17 Robitussin Dm - PO Q6H PRN COUGH Hydroxyzine Pamoate 50 mg 12/25/17 21:17 Vistaril - PO Q4H PRN AGITATION Ibuprofen 400 mg 12/25/17 21:17 01/15/18 09:02 Motrin - PO 400 mg Q6H PRN Administration Pain Level 4-6 Lidocaine 1 patch 12/31/17 12:30 01/19/18 10:24 Lidoderm Patch - TP 1 patch DAILY AMEENA Administration Loperamide HCl 4 mg 12/25/17 21:17 Imodium - PO Q6H PRN DIARRHEA Magnesium Citrate 300 ml 12/25/17 21:17 Citroma - PO Q48H PRN CONSTIPATION Magnesium Hydroxide 30 ml 12/25/17 21:17 Milk Of Magnesia - PO DAILY PRN CONSTIPATION Melatonin 5 mg 12/25/17 22:00 01/15/18 21:59 Melatonin PO 5 mg HS PRN Administration INSOMNIA Methadone HCl 80 mg/ Methadone 110 mg 01/17/18 06:30 01/19/18 06:12 HCl 30 mg PO 110 mg DAILY@0600 AMEENA Administration Methyl Salicylate 1 applic 12/31/17 23:00 01/18/18 23:05 Trev-Sanchez - TP Not Given HS@2300 [facility] Miscellaneous 1 each 12/31/17 22:00 01/18/18 21:57 Lidoderm Patch Removal MC Not Given DAILY@2200 [facility] Montelukast Sodium 10 mg 12/25/17 22:00 01/18/18 21:53 Singulair - PO 10 mg HS AMEENA Administration Nicotine 21 mg 12/26/17 10:00 01/19/18 10:24 Nicoderm Patch - TD Not Given DAILY [facility] Nicotine Polacrilex 4 mg 12/25/17 21:17 01/19/18 10:25 Nicorette Gum - BUC 4 mg Q2H PRN Administration NICOTINE REPLACEMENT RX Multivit/Folic Acid/Iron 1 tab 12/26/17 10:00 01/19/18 10:24 Vitamins (Sjr) - PO 1 tab DAILY AMEENA Administration Pseudoephedrine/Triprolidine 1 combo 12/25/17 21:17 Actifed - PO TID PRN NASAL CONGESTION Quetiapine Fumarate 100 mg 12/25/17 22:00 01/18/18 21:54 Seroquel - PO 100 mg HS AMEENA Administration Ranitidine HCl 150 mg 12/25/17 22:00 01/19/18 10:24 Zantac - PO 150 mg BID AMEENA Administration Thiamine HCl 100 mg 12/25/17 22:00 01/18/18 21:54 Vitamin B1 - PO 100 mg HS AMEENA Administration Current Side Effect: No Lab tests ordered: Yes Lab tests reviewed: Yes Provider note:: Patient will complete this program on 01/20/18. He has met his treatment goals and will continue to address his issues in penitentiary residential treatment at [facility] at [address] [place] [address]. Told movie writer that from his participation in this program, he has learned if you don't chicken picker you can't get high. He responded well to Seroquel 100 mg po HS. Script for 30 day supply of that medication will be electronically transmitted to Pharmacy at [address] [place] [address]. He is stable for discharge on 01/20/18 Total face to face time:: 35 Mental Status Exam - Mental Status Exam Alert and Oriented to: Time, Place, Person Cognitive Function: Fair Patient Appearance: Well Groomed Mood: Hopeful, Euthymic Affect: Appropriate Patient Behavior: Cooperative Speech Pattern: Clear Voice Loudness: Normal Thought Process: Intact, Goal Oriented Thought Disorder: Not Present Hallucinations: Denies Suicidal Ideation: Denies Homicidal Ideation: Denies Insight/Judgement: Fair Sleep: Fair Appetite: Good Muscle strength/Tone: Normal Gait/Station: Normal Psychiatric Treatment Plan - Problem List (1) Cocaine dependence Current Visit: Yes (2) Sedative hypnotic or anxiolytic dependence Current Visit: Yes (3) Opioid dependence on agonist therapy Current Visit: No (4) Nicotine dependence Current Visit: No Qualifiers: Nicotine product type: cigarettes Substance use status: in withdrawal Qualified Code(s): F17.213 - Nicotine dependence, cigarettes, with withdrawal (5) Mood disorder Current Visit: Yes (6) MDD (major depressive disorder) Current Visit: Yes (7) Bipolar II disorder Current Visit: Yes (8) Substance induced mood disorder Current Visit: Yes (9) Substance-induced sleep disorder Current Visit: Yes (10) Asthma Current Visit: No Qualifiers: Asthma severity: mild Asthma persistence: unspecified Asthma complication type: uncomplicated Qualified Code(s): J45.909 - Unspecified asthma, uncomplicated (11) GERD (gastroesophageal reflux disease) Current Visit: No Qualifiers: Esophagitis presence: without esophagitis Qualified Code(s): K21.9 - Gastro -esophageal reflux disease without esophagitis (12) History of hepatitis C virus infection Current Visit: No Initial treatment plan: Patient will be discharged tomorrow and referred to [facility] for penitentiary residential treatment
[2018-01-19] MEDS: MELATONIN 5 MG TABLETS PO PRN (22:12)
[2018-01-19] MEDS: THIAMINE HCL 100 MG TABLET (FP) PO SCH (22:12)
[2018-01-19] MEDS: QUEtiapine FUMARATE 100 MG TABLET (FP) PO SCH (22:13)
[2018-01-19] MEDS: MONTELUKAST NA 10 MG TABLET PO SCH (22:13)
[2018-01-19] MEDS: LIDOCAINE PATCH REMOVAL MC SCH (22:14)
[2018-01-19] MEDS: METHYL SALICYLATE/MENTHOL OINT 30 GM TUBE TP SCH (22:15)
[2018-01-20] MEDS ORDERED: METHADONE HCL 10 MG TABLET ONE (03:29)
[2018-01-20] MEDS ORDERED: METHADONE HCL 40 MG DISPERSABLE TABLET ONE (03:30)
[2018-01-20] MEDS: METHADONE 80 MG, METHADONE 30 MG PO SCH (06:32)
[2018-01-20] MEDS: NICOTINE POLACRILEX 4 MG GUM BUC PRN ×2 (06:33→09:16)
[2018-01-20] MEDS: GABAPENTIN 100 MG CAPSULE (FP) PO SCH (06:33)
[2018-01-20] MEDS: CYCLOBENZAPRINE HCL 10 MG TABLET (FP) PO SCH (06:33)
[2018-01-20 07:14] VITALS: BP 120/78; PULSE 81; TEMP 97.7
[2018-01-20] MEDS: NICOTINE 21 MG/24 HOURS TOPICAL PATCH TD SCH (09:16)
[2018-01-20] MEDS: DOCUSATE SODIUM 100 MG CAPSULE (FP) PO SCH (09:16)
[2018-01-20] MEDS: PRENATAL VITAMINS W/ FOLIC ACID TABLET (FP) PO SCH (09:16)
[2018-01-20] MEDS: LIDOCAINE 5% TOPICAL PATCH TP SCH (09:16)
[2018-01-20] MEDS: RANITIDINE HCL 150 MG TABLET (FP) PO SCH (09:16)
[2018-01-20] MEDS ORDERED: PT OWN MED DRAWER 7, Y5N ONE (09:17)
== END 2018-01-20 09:25 | disposition home or self-care (01) | DRG 895 ==
LOC: YASAS 19:01 → Y3W 19:02
PROVIDERS: ADMIT Psychiatry & Neurology Psychiatry; ATTEND Psychiatry & Neurology Psychiatry
PROC: HZ42ZZZ Group Counseling for Substance Abuse Treatment, Cognitive-Behavioral (ICD-10-PCS; principal; 2017-12-25)
DX: F13.20 Sedative, hypnotic or anxiolytic dependence, uncomplicated (principal); F11.20 Opioid dependence, uncomplicated; F14.20 Cocaine dependence, uncomplicated; F17.213 Nicotine dependence, cigarettes, with withdrawal; F33.9 Major depressive disorder, recurrent, unspecified; F31.81 Bipolar II disorder; F19.282 Other psychoactive substance dependence with psychoactive substance-induced sleep disorder; F39 Unspecified mood [affective] disorder; F19.24 Other psychoactive substance dependence with psychoactive substance-induced mood disorder; K21.9 Gastro-esophageal reflux disease without esophagitis; B18.2 Chronic viral hepatitis C; G89.29 Other chronic pain; Z96.641 Presence of right artificial hip joint; Z59.0 Homelessness

== ENCOUNTER 2018-09-20 11:41 | Inpatient (IN) | payer OTHER ==
[2018-09-20 12:37] VITALS: BMI 28.3
--- NOTE | 2018-09-20 15:52 | HP ---
COWS - Scale Resting Pulse: 0= PA 80 or Below Sweatin= No chills or Flushing Restless Observation: 0= Sits Still Pupil Size: 0= Normal to Room Light Bone or Joint Aches: 2= Severe Diffuse Aches Runny Nose/ Eye Tearin= None GI Upset > 30mins: 0= None Tremor Observation: 2= Slight Tremor Visible Yawning Observation: 0= None Anxiety or Irritability: 2=Irritable/Anxious Goose Flesh Skin: 0=Smooth Skin COWS Score: 6 CIWA Score Nausea/Vomitin-No Nausea/No Vomiting Muscle Tremors: 3 Anxiety: 2 Agitation: 0-Normal Activity Paroxysmal Sweats: No Perspiration Orientation: 2-Disoriented Date<2 days Tacttile Disturbances: 3-Moderate Itch/Numb/Burn Auditory Disturbances: 0-None Visual Disturbances: 0-None Headache: 3-Moderate CIWA-Ar Total Score: 13 - Admission Criteria OASAS Guidelines: Admission for Medically Managed Detox: Requires at least one of the followin. CIWA greater than 12 2. Seizures within the past 24 hours 3. Delirium tremens within the past 24 hours 4. Hallucinations within the past 24 hours 5. Acute intervention needed for co occurring medical disorder 6. Acute intervention needed for co occurring psychiatric disorder 7. Severe withdrawal that cannot be handled at a lower level of care (continued vomiting, continued diarrhea, abnormal vital signs) requiring intravenous medication and/or fluids 8. Admission [facility] Chief Complaint: Patient presents with ETOH withdrawal symptoms. Also sniffs Heroin despite being on MTD program. Allergies/Adverse Reactions: Allergies Allergy/AdvReac Type Severity Reaction Status Date / Time morphine Allergy Severe Rash Verified 09/20/18 12:29 fish Allergy Severe Rash Uncoded 09/20/18 12:29 History of Present Illness: Patient presents with ETOH withdrawal symptoms and is currently on MTD program for Opiod use disorder. Patient states he started drinking ETOH at age 23, drinks 10 beers daily, last drink this morning. Patient denies seizures, blackouts and eye openers. Also on MTD program at [facility] with stopping dose of 90mg daily. Last dose today. Pending RN verification. Patient also sniffs 3 bags of heroin/cocaine daily with last use yesterday. Patient + hx of IVDA but denies recent use. PMH includes Hep C (treated), asthma, constipation and anxiety/insomnia. Patient takes seroquel 100mg hs for insomnia and states he has medication at home. Prescription verified in external hx. Patient refused psych consult at this time and denies SI/HI and suicide attempts. Also treated with Klonipin for anxiety but takes medication 1-2 x weekly. Last medicated 3-4 days ago. Will order lower dose of seroquel due to detox regimen with BZO and consult with psych if needed. Others' Prescriptions Patient Name: Gaston Matt Date: 1970 Address: [address] [place] [address] Sex: Male Rx Written Rx Dispensed Drug Quantity Days Supply Prescriber Name 09/13/2018 09/13/2018 clonazepam 1 mg tablet 60 30 Earl Jordan 08/16/2018 08/16/2018 clonazepam 1 mg tablet 60 30 Earl Jordan 07/16/2018 07/16/2018 clonazepam 1 mg tablet 60 30 Maddy Parekh 06/11/2018 06/11/2018 clonazepam 1 mg tablet 60 30 Earl Jordan 02/26/2018 02/26/2018 clonazepam 1 mg tablet 90 30 Maddy Parekh 01/22/2018 01/22/2018 clonazepam 1 mg tablet 60 30 Maddy Parekh Exam Limitations: No Limitations - Ebola screening Have you traveled outside of the country in the last 21 days: No Have you had contact with anyone from an Ebola affected area: No Have you been sick,other than usual withdrawal symptoms: No Do you have a fever: No - Review of Systems Constitutional: Changes in sleep EENT: reports: No Symptoms Reported Respiratory: reports: No Symptoms reported Cardiac: reports: No Symptoms Reported GI: reports: Constipated : reports: No Symptoms Reported Musculoskeletal: reports: Back Pain, Joint Pain, Muscle Pain Integumentary: reports: No Symptoms Reported Neuro: reports: Headache, Numbness, Tingling, Tremors Endocrine: reports: No Symptoms Reported Hematology: reports: No Symptoms Reported Psychiatric: reports: Anxious, other (forgetful with date) Patient History - Patient Medical History Hx Anemia: No Hx Asthma: Yes (With Treatment) Hx Chronic Obstructive Pulmonary Disease (COPD): No Hx Cancer: No Hx Cardiac Disorders: No Hx Congestive Heart Failure: No Hx Hypertension: No Hx Hypercholesterolemia: No Hx Pacemaker: No HX Cerebrovascular Accident: No Hx Seizures: No Hx Dementia: No Hx Diabetes: No Hx Gastrointestinal Disorders: Yes Hx Liver Disease: No Hx Genitourinary Disorders: No Hx Sexually Transmitted Disorders: No (Denies) Hx Renal Disease (ESRD): No Hx Thyroid Disease: No Hx Human Immunodeficiency Virus (HIV): No (NEGATIVE HX, 12/2017) Hx Hepatitis C: Yes (treated) Hx Depression: Yes Hx Suicide Attempt: No Hx Bipolar Disorder: Yes Hx Schizophrenia: No - Patient Surgical History Past Surgical History: Yes Hx Neurologic Surgery: No Hx Cataract Extraction: No Hx Cardiac Surgery: No Hx Lung Surgery: No Hx Breast Surgery: No Hx Breast Biopsy: No Hx Abdominal Surgery: No Hx Appendectomy: No Hx Cholecystectomy: No Hx Genitourinary Surgery: No Hx Section: No Hx Orthopedic Surgery: Yes (right hip replacement in 2013) Anesthesia Reaction: No - PPD History Previous Implant?: Yes Documented Results: Negative w/proof Date: 06/28/17 Results: 0mm PPD to be Administered?: Yes - Smoking Cessation Smoking history: Former smoker Have you smoked in the past 12 months: No Aproximately how many cigarettes per day: 10 If you are a former smoker, when did you quit?: 2016 Hx Chewing Tobacco Use: No Initiated information on smoking cessation: No - Substance & Tx. History Hx Alcohol Use: Yes Hx Substance Use: Yes Substance Use Type: Alcohol, Cocaine, Heroin Hx Substance Use Treatment: Yes - Substances abused Heroin Substance route: Inhalation Frequency: Daily Amount used: 2 BAGS Age of first use: 26 Date of last use: 09/19/18 Cocaine Substance route: Smoking Frequency: Daily Amount used: 2 BAGS Age of first use: 31 Date of last use: 09/19/18 Alcohol Substance route: Oral Frequency: Daily Amount used: 4-5 CANS OF BEER Age of first use: 23 Date of last use: 09/20/18 Family Disease History - Family Disease History Family Disease History: Other: Father (alive and well ), Mother (alive and well ) Admission Physical Exam BHS - Vital Signs Vital Signs: Vital Signs - 24 hr 09/20/18 12:32 Temperature 98.5 F Pulse Rate 69 Respiratory 20 Rate Blood Pressure 102/66 - Physical General Appearance: Yes: Nourished, Appropriately Dressed, Tremorous, Anxious HEENTM: Yes: EOMI, Hearing grossly Normal, Normal ENT Inspection, Normocephalic , Normal Voice, MARY, Pharynx Normal Respiratory: Yes: Chest Non-Tender, No Respiratory Distress, No Accessory Muscle Use, Wheezing Neck: Yes: No masses,lesions,Nodules, Supple, Trachea in good position Breast: Yes: Breast Exam Deferred Cardiology: Yes: Regular Rhythm, Regular Rate, S1, S2 Abdominal: Yes: Normal Bowel Sounds, Non Tender, Soft Genitourinary: Yes: Within Normal Limits Back: Yes: Muscle Spasm Musculoskeletal: Yes: full range of Motion, Gait Steady, Back pain, Joint Stiffness Extremities: Yes: Normal Inspection, Normal Range of Motion, Non-Tender, Tremors Neurological: Yes: diamond wheel edger II-XII NML intact, Alert, Motor Strength 5/5, Normal Response, Other (ANXIOUS, FORGETFUL WITH DATE/TIME) Integumentary: Yes: Normal Color, Dry, Warm Lymphatic: Yes: Within Normal Limits - Diagnostic (1) Anxious mood Current Visit: Yes Status: Chronic (2) Alcohol dependence with uncomplicated withdrawal Current Visit: Yes Status: Acute (3) Cocaine dependence Current Visit: Yes Status: Chronic Qualifiers: Substance use status: uncomplicated Qualified Code(s): F14.20 - Cocaine dependence, uncomplicated (4) Constipation Current Visit: No Status: Chronic Qualifiers: Constipation type: unspecified constipation type Qualified Code(s): K59.00 - Constipation, unspecified (5) Substance-induced sleep disorder Current Visit: No Status: Chronic (6) Asthma Current Visit: No Status: Chronic Qualifiers: Asthma severity: mild Asthma persistence: unspecified Asthma complication type: uncomplicated Qualified Code(s): J45.909 - Unspecified asthma, uncomplicated (7) Methadone maintenance therapy patient Current Visit: No Status: Chronic Comment: Patient currently on 110mg, last medicated today, dose pending verification. Cleared for Admission S - Detox or Rehab S Level of Care: Medically Managed Detox Regimen/Protocol: Not Applicable (ativan protocol) Breathalyzer - Breathalyzer Breathalyzer: 0 Urine Drug Screen - Test Device Lot number: [id number] Expiration date: 07/13/20 - Control Is test valid?: Yes - Results Drug screen NEGATIVE: No Urine drug screen results: CLEVE-Cocaine, FEN-Fentanyl, MOP-Opiates, OXY-Oxycodone , MTD-Methadone, BZO-Benzodiazepines Inpatient Rehab Admission - Rehab Decision to Admit Inpatient rehab admission?: No
[2018-09-20] MEDS ORDERED: LORazepam 1 MG TABLET PO PRN (16:03)
[2018-09-20] MEDS ORDERED: ACETAMINOPHEN 325 MG TABLET (FP) PO PRN ×2 (16:04)
[2018-09-20] MEDS ORDERED: MENTHOL/PHENOL 1 EACH UD MM PRN (16:04)
[2018-09-20] MEDS ORDERED: hydrOXYzine HCL 25 MG TABLET (FP) PO PRN (16:04)
[2018-09-20] MEDS ORDERED: IBUPROFEN 400 MG TABLET (FP) PO PRN (16:04)
[2018-09-20] MEDS ORDERED: MAGNESIUM CITRATE 300 ML BOTTLE PO PRN (16:04)
[2018-09-20] MEDS ORDERED: MAGNESIUM HYDROX 2400MG/30ML ORAL SUSPENSION 30 ML CUP PO PRN (16:04)
[2018-09-20] MEDS ORDERED: ONDANSETRON *ODT* 4 MG TABLET SL PRN (16:04)
[2018-09-20] MEDS ORDERED: BISMUTH SUBSALICYLATE 524 MG/30 ML UD PO PRN (16:04)
[2018-09-20] MEDS: LORazepam 2 MG TABLET PO SCH ×2 (17:26→22:06)
[2018-09-20] MEDS: ALBUTEROL SO4 8 GM HFA INHALER IH PRN (19:37)
[2018-09-20] MEDS: THIAMINE HCL 100 MG TABLET (FP) PO SCH (22:06)
[2018-09-20] MEDS: DOCUSATE SODIUM 100 MG CAPSULE (FP) PO SCH (22:06)
[2018-09-20] MEDS: BUDESONIDE/FORMETEROL FUMARATE 80/4.5 mcg INHALER IH SCH (22:06)
[2018-09-20] MEDS: MELATONIN 5 MG TABLETS PO PRN (22:07)
[2018-09-20] MEDS: QUEtiapine FUMARATE 50 MG TABLET PO PRN (22:07)
[2018-09-21] MEDS ORDERED: METHADONE HCL 10 MG TABLET PO SCH (07:15)
[2018-09-21] MEDS ORDERED: METHADONE HCL 10 MG TABLET ONE (07:17)
[2018-09-21] MEDS ORDERED: METHADONE HCL 40 MG DISPERSABLE TABLET ONE (07:17)
[2018-09-21] MEDS: METHADONE 80 MG, METHADONE 10 MG PO SCH (07:27)
[2018-09-21] MEDS: LORazepam 2 MG TABLET PO SCH ×4 (07:28→22:01)
[2018-09-21] MEDS: BUDESONIDE/FORMETEROL FUMARATE 80/4.5 mcg INHALER IH SCH ×2 (10:06→22:02)
[2018-09-21] MEDS: PRENATAL VITAMINS W/ FOLIC ACID TABLET (FP) PO SCH (10:06)
[2018-09-21] MEDS: DOCUSATE SODIUM 100 MG CAPSULE (FP) PO SCH ×2 (10:06→22:02)
--- NOTE | 2018-09-21 11:04 | PN ---
BHS CIWA - CIWA Score Nausea/Vomitin-Mild Nausea/No Vomiting Muscle Tremors: 3 Anxiety: 3 Agitation: 2 Paroxysmal Sweats: 1-Minimal Palms Moist Orientation: 1-Uncertain about Date Tacttile Disturbances: 1-Very Mild Itch/Numbness Auditory Disturbances: 0-None Visual Disturbances: 0-None Headache: 0-None Present CIWA-Ar Total Score: 12 BHS Progress Note (SOAP) Subjective: received methadone 90 mg today feeling better less tremor but anxious and tired hesitate to discuss alcohol management further Objective: 09/21/18 11:03 Vital Signs Temperature 97.2 F L 09/21/18 09:17 Pulse Rate 73 09/21/18 09:17 Respiratory Rate 18 09/21/18 09:17 Blood Pressure 132/84 09/21/18 09:17 O2 Sat by Pulse Oximetry (%) 09/21/18 11:03 lab pending Assessment: 09/21/18 11:03 alcohol withdrawal sx methadone maintenance program Plan: continue alcohol detox
[2018-09-21 12:11] LABS: HEMATOCRIT 40.2 % (35.4-49); MCH 28.4 pg (25.7-33.7); MCHC 32.3 g/dl (32.0-35.9); MEAN CELL VOLUME 87.9 fl (80-96); MEAN PLT VOLUME 9.9 fl (7.5-11.1); PLATELET COUNT 200 K/MM3 (134-434); RBC 4.57 M/mm3 (4.00-5.60); RDW 12.6 % (11.9-15.9); WHITE BLOOD COUNT 6.1 K/mm3 (4.0-10.0)
[2018-09-21 12:17] LABS: PH,URINE 5.5 (5.0-8.0); URINE APPEARANCE CLEAR; URINE BILIRUBIN NEGATIVE (NEGATIVE); URINE COLOR DK YELLOW; URINE GLUCOSE (UA) NEGATIVE (NEGATIVE); URINE KETONE TRACE (NEGATIVE); URINE LEUK ESTERASE NEGATIVE (NEGATIVE); URINE NITRITE NEGATIVE (NEGATIVE); URINE PROTEIN NEGATIVE (NEGATIVE)
[2018-09-21 12:44] LABS: BILIRUBIN,TOTAL 0.6 mg/dL (0.2-1); BLOOD UREA NITROGEN 14.6 mg/dL (7-18); CALCIUM 9.4 mg/dL (8.5-10.1); CREATININE 0.9 mg/dL (0.55-1.3); POTASSIUM 4.1 mmol/L (3.5-5.1); TOT PROT 7.3 g/dl (6.4-8.2)
--- NOTE | 2018-09-21 14:35 | EKG ---
Test Reason : Blood Pressure : / mmHG Vent. Rate : 059 BPM Atrial Rate : 059 BPM P-R Int : 154 ms QRS Dur : 094 ms QT Int : 442 ms P-R-T Axes : 053 038 038 degrees QTc Int : 437 ms SINUS BRADYCARDIA MINIMAL VOLTAGE CRITERIA FOR LVH, MAY BE NORMAL VARIANT EARLY REPOLARIZATION BORDERLINE ECG WHEN COMPARED WITH ECG OF 21-DEC-2017 18:18, NO SIGNIFICANT CHANGE WAS FOUND Confirmed by Cain Landers ([id number]) on 09/21/2018 2:34:48 PM Referred By: Confirmed By:Cain Landers
[2018-09-21] MEDS: ALBUTEROL SO4 8 GM HFA INHALER IH PRN (17:39)
[2018-09-21] MEDS: MAG HYDROX/AL HYDROX/SIMETH 30 ML UNIT-DOSE CUP PO PRN (19:49)
[2018-09-21] MEDS: QUEtiapine FUMARATE 50 MG TABLET PO PRN (22:01)
[2018-09-21] MEDS: THIAMINE HCL 100 MG TABLET (FP) PO SCH (22:02)
[2018-09-21] MEDS: MELATONIN 5 MG TABLETS PO PRN (22:02)
[2018-09-22] MEDS ORDERED: METHADONE HCL 40 MG DISPERSABLE TABLET ONE (04:20)
[2018-09-22] MEDS ORDERED: METHADONE HCL 10 MG TABLET ONE (04:20)
[2018-09-22] MEDS: METHADONE 80 MG, METHADONE 10 MG PO SCH (06:17)
[2018-09-22] MEDS: LORazepam 1 MG TABLET PO SCH ×4 (06:17→22:00)
[2018-09-22] MEDS: ALBUTEROL SO4 8 GM HFA INHALER IH PRN (06:27)
[2018-09-22] MEDS: BUDESONIDE/FORMETEROL FUMARATE 80/4.5 mcg INHALER IH SCH ×2 (10:06→21:59)
[2018-09-22] MEDS: PRENATAL VITAMINS W/ FOLIC ACID TABLET (FP) PO SCH (10:06)
[2018-09-22] MEDS: DOCUSATE SODIUM 100 MG CAPSULE (FP) PO SCH ×2 (10:06→21:59)
[2018-09-22] MEDS: NICOTINE POLACRILEX 4 MG GUM BUC PRN ×4 (10:55→21:26)
--- NOTE | 2018-09-22 11:01 | PN ---
[facility] CIWA - CIWA Score Nausea/Vomitin-Mild Nausea/No Vomiting Muscle Tremors: 2 Anxiety: 3 Agitation: 2 Paroxysmal Sweats: 1-Minimal Palms Moist Orientation: 1-Uncertain about Date Tacttile Disturbances: 1-Very Mild Itch/Numbness Auditory Disturbances: 0-None Visual Disturbances: 0-None Headache: 0-None Present CIWA-Ar Total Score: 11 BHS Progress Note (SOAP) Subjective: anxiousness requests for nicotine gum refuses nicotine patch smoke a pach of cigarette daily tremor restlessness Objective: 09/22/18 11:01 Vital Signs Temperature 97.7 F 09/22/18 09:07 Pulse Rate 81 09/22/18 09:07 Respiratory Rate 18 09/22/18 09:07 Blood Pressure 110/75 09/22/18 09:07 O2 Sat by Pulse Oximetry (%) Laboratory Last Values WBC 6.1 K/mm3 (4.0-10.0) 09/21/18 08:30 RBC 4.57 M/mm3 (4.00-5.60) 09/21/18 08:30 Hgb 13.0 GM/dL (11.7-16.9) 09/21/18 08:30 Hct 40.2 % (35.4-49) 09/21/18 08:30 MCV 87.9 fl (80-96) 09/21/18 08:30 MCH 28.4 pg (25.7-33.7) 09/21/18 08:30 MCHC 32.3 g/dl (32.0-35.9) 09/21/18 08:30 RDW 12.6 % (11.9-15.9) 09/21/18 08:30 Plt Count 200 K/MM3 (134-434) 09/21/18 08:30 MPV 9.9 fl (7.5-11.1) 09/21/18 08:30 Sodium 141 mmol/L (136-145) 09/21/18 08:30 Potassium 4.1 mmol/L (3.5-5.1) 09/21/18 08:30 Chloride 108 mmol/L (98-107) H 09/21/18 08:30 Carbon Dioxide 25 mmol/L (21-32) 09/21/18 08:30 Anion Gap 7 MMOL/L (8-16) L 09/21/18 08:30 BUN 14.6 mg/dL (7-18) 09/21/18 08:30 Creatinine 0.9 mg/dL (0.55-1.3) 09/21/18 08:30 Est GFR (CKD-EPI)AfAm 118.30 09/21/18 08:30 Est GFR (CKD-EPI)NonAf 102.07 09/21/18 08:30 Random Glucose 110 mg/dL (74-106) H 09/21/18 08:30 Calcium 9.4 mg/dL (8.5-10.1) 09/21/18 08:30 Total Bilirubin 0.6 mg/dL (0.2-1) 09/21/18 08:30 AST 27 U/L (15-37) 09/21/18 08:30 ALT 41 U/L (13-61) 09/21/18 08:30 Alkaline Phosphatase 99 U/L (45-117) 09/21/18 08:30 Total Protein 7.3 g/dl (6.4-8.2) 09/21/18 08:30 Albumin 4.0 g/dl (3.4-5.0) 09/21/18 08:30 Urine Color Dk yellow 09/21/18 10:45 Urine Appearance Clear 09/21/18 10:45 Urine pH 5.5 (5.0-8.0) 09/21/18 10:45 Ur Specific [place] 1.026 (1.010-1.035) 09/21/18 10:45 Urine Protein Negative (NEGATIVE) 09/21/18 10:45 Urine Glucose (UA) Negative (NEGATIVE) 09/21/18 10:45 Urine Ketones Trace (NEGATIVE) H 09/21/18 10:45 Urine Blood Negative (NEGATIVE) 09/21/18 10:45 Urine Nitrite Negative (NEGATIVE) 09/21/18 10:45 Urine Bilirubin Negative (NEGATIVE) 09/21/18 10:45 Urine Urobilinogen 1.0 mg/dL (0.2-1.0) 09/21/18 10:45 Ur Leukocyte Esterase Negative (NEGATIVE) 09/21/18 10:45 RPR Titer Nonreactive (NONREACTIVE) 09/21/18 08:30 lab noted Assessment: 09/22/18 11:01 alcohol withdrawal sx Plan: continue alcohol detox
[2018-09-22] MEDS: MAG HYDROX/AL HYDROX/SIMETH 30 ML UNIT-DOSE CUP PO PRN (21:28)
[2018-09-22] MEDS: THIAMINE HCL 100 MG TABLET (FP) PO SCH (21:59)
[2018-09-22] MEDS: MELATONIN 5 MG TABLETS PO PRN (22:00)
[2018-09-22] MEDS: QUEtiapine FUMARATE 50 MG TABLET PO PRN (22:00)
[2018-09-23] MEDS ORDERED: LORazepam 0.5 MG TABLET PO PRN
[2018-09-23] MEDS ORDERED: METHADONE HCL 10 MG TABLET ONE (04:22)
[2018-09-23] MEDS ORDERED: METHADONE HCL 40 MG DISPERSABLE TABLET ONE (04:24)
[2018-09-23] MEDS: LORazepam 0.5 MG TABLET PO SCH ×4 (05:33→22:46)
[2018-09-23] MEDS: METHADONE 80 MG, METHADONE 10 MG PO SCH (06:32)
[2018-09-23] MEDS: NICOTINE POLACRILEX 4 MG GUM BUC PRN ×5 (06:34→16:37)
[2018-09-23] MEDS: BUDESONIDE/FORMETEROL FUMARATE 80/4.5 mcg INHALER IH SCH ×2 (10:11→21:27)
[2018-09-23] MEDS: PRENATAL VITAMINS W/ FOLIC ACID TABLET (FP) PO SCH (10:11)
[2018-09-23] MEDS: DOCUSATE SODIUM 100 MG CAPSULE (FP) PO SCH ×2 (10:11→21:27)
--- NOTE | 2018-09-23 10:33 | PN ---
[facility] CIWA - CIWA Score Nausea/Vomitin-Mild Nausea/No Vomiting Muscle Tremors: 1-None Visible, but [place] Anxiety: 2 Agitation: 3 Paroxysmal Sweats: 1-Minimal Palms Moist Orientation: 0-Oriented Tacttile Disturbances: 1-Very Mild Itch/Numbness Auditory Disturbances: 0-None Visual Disturbances: 0-None Headache: 0-None Present CIWA-Ar Total Score: 9 S Progress Note (SOAP) Subjective: patient reported that he is taking seroquel 400 mg daily for "years" for depression can not remember last dose of seruqoel but last 30 days filled on 09/15/18 psychiatric referral 48 years old male admitted on 09/20/18 for alcohol withdrawal sx medical history of asthma dn cigarette smoker x "years" patient is willing to discuss aftercare with staff today that revelation is patient's preference Objective: 09/23/18 13:23 Vital Signs Temperature 98.5 F 09/23/18 09:12 Pulse Rate 86 09/23/18 09:12 Respiratory Rate 18 09/23/18 09:12 Blood Pressure 101/67 09/23/18 09:12 O2 Sat by Pulse Oximetry (%) Laboratory Last Values WBC 6.1 K/mm3 (4.0-10.0) 09/21/18 08:30 RBC 4.57 M/mm3 (4.00-5.60) 09/21/18 08:30 Hgb 13.0 GM/dL (11.7-16.9) 09/21/18 08:30 Hct 40.2 % (35.4-49) 09/21/18 08:30 MCV 87.9 fl (80-96) 09/21/18 08:30 MCH 28.4 pg (25.7-33.7) 09/21/18 08:30 MCHC 32.3 g/dl (32.0-35.9) 09/21/18 08:30 RDW 12.6 % (11.9-15.9) 09/21/18 08:30 Plt Count 200 K/MM3 (134-434) 09/21/18 08:30 MPV 9.9 fl (7.5-11.1) 09/21/18 08:30 Sodium 141 mmol/L (136-145) 09/21/18 08:30 Potassium 4.1 mmol/L (3.5-5.1) 09/21/18 08:30 Chloride 108 mmol/L (98-107) H 09/21/18 08:30 Carbon Dioxide 25 mmol/L (21-32) 09/21/18 08:30 Anion Gap 7 MMOL/L (8-16) L 09/21/18 08:30 BUN 14.6 mg/dL (7-18) 09/21/18 08:30 Creatinine 0.9 mg/dL (0.55-1.3) 09/21/18 08:30 Est GFR (CKD-EPI)AfAm 118.30 09/21/18 08:30 Est GFR (CKD-EPI)NonAf 102.07 09/21/18 08:30 Random Glucose 110 mg/dL (74-106) H 09/21/18 08:30 Calcium 9.4 mg/dL (8.5-10.1) 09/21/18 08:30 Total Bilirubin 0.6 mg/dL (0.2-1) 09/21/18 08:30 AST 27 U/L (15-37) 09/21/18 08:30 ALT 41 U/L (13-61) 09/21/18 08:30 Alkaline Phosphatase 99 U/L (45-117) 09/21/18 08:30 Total Protein 7.3 g/dl (6.4-8.2) 09/21/18 08:30 Albumin 4.0 g/dl (3.4-5.0) 09/21/18 08:30 Urine Color Dk yellow 09/21/18 10:45 Urine Appearance Clear 09/21/18 10:45 Urine pH 5.5 (5.0-8.0) 09/21/18 10:45 Ur Specific [place] 1.026 (1.010-1.035) 09/21/18 10:45 Urine Protein Negative (NEGATIVE) 09/21/18 10:45 Urine Glucose (UA) Negative (NEGATIVE) 09/21/18 10:45 Urine Ketones Trace (NEGATIVE) H 09/21/18 10:45 Urine Blood Negative (NEGATIVE) 09/21/18 10:45 Urine Nitrite Negative (NEGATIVE) 09/21/18 10:45 Urine Bilirubin Negative (NEGATIVE) 09/21/18 10:45 Urine Urobilinogen 1.0 mg/dL (0.2-1.0) 09/21/18 10:45 Ur Leukocyte Esterase Negative (NEGATIVE) 09/21/18 10:45 RPR Titer Nonreactive (NONREACTIVE) 09/21/18 08:30 TB Test (QFT) Nil 0.04 IU/mL (.) 09/21/18 10:15 TB Test (QFT) Mitogen >10.00 IU/mL (.) 09/21/18 10:15 TB Test (QFT) Antigen 0.05 IU/mL (.) 09/21/18 10:15 TB Test (QFT) Negative (Negative) 09/21/18 10:15 TB Positive Criteria (.) 09/21/18 10:15 lab noted Assessment: 09/23/18 13:24 alcohol withdrawal sx Plan: continue alcohol detox
[2018-09-23] MEDS: ALBUTEROL SO4 8 GM HFA INHALER IH PRN ×2 (16:15→19:55)
[2018-09-23] MEDS: MAG HYDROX/AL HYDROX/SIMETH 30 ML UNIT-DOSE CUP PO PRN (16:16)
[2018-09-23] MEDS ORDERED: RANITIDINE HCL 150 MG TABLET (FP) PO ONE (20:03)
[2018-09-23] MEDS: THIAMINE HCL 100 MG TABLET (FP) PO SCH (21:27)
[2018-09-23] MEDS: QUEtiapine FUMARATE 50 MG TABLET PO PRN (21:27)
[2018-09-23] MEDS ORDERED: QUEtiapine FUMARATE 100 MG TABLET (FP) PO ONE (22:29)
[2018-09-24] MEDS ORDERED: METHADONE HCL 10 MG TABLET ONE ×2 (04:05→05:41)
[2018-09-24] MEDS ORDERED: METHADONE HCL 40 MG DISPERSABLE TABLET ONE ×2 (04:06→05:41)
[2018-09-24] MEDS ORDERED: LORazepam 0.5 MG TABLET PO ONE (05:00)
[2018-09-24] MEDS: METHADONE 80 MG, METHADONE 10 MG PO SCH (05:03)
[2018-09-24] MEDS ORDERED: METHADONE HCL 10 MG TABLET PO ONE (05:09)
[2018-09-24] MEDS ORDERED: METHADONE 80 MG, METHADONE 10 MG PO ONE (05:15)
[2018-09-24] MEDS: NICOTINE POLACRILEX 4 MG GUM BUC PRN ×4 (05:54→14:58)
[2018-09-24] MEDS: PRENATAL VITAMINS W/ FOLIC ACID TABLET (FP) PO SCH (10:09)
[2018-09-24] MEDS: DOCUSATE SODIUM 100 MG CAPSULE (FP) PO SCH (10:09)
[2018-09-24] MEDS: BUDESONIDE/FORMETEROL FUMARATE 80/4.5 mcg INHALER IH SCH (10:09)
--- NOTE | 2018-09-24 13:29 | PN ---
S CIWA - CIWA Score Nausea/Vomitin-No Nausea/No Vomiting Muscle Tremors: 1-None Visible, but [place] Anxiety: 1-Mildly Anxious Agitation: 1-Slight > Activity Paroxysmal Sweats: No Perspiration Orientation: 0-Oriented Tacttile Disturbances: 0-None Auditory Disturbances: 0-None Visual Disturbances: 0-None Headache: 1-Very Mild CIWA-Ar Total Score: 4 [facility] Progress Note (SOAP) Subjective: alert,no complaint Objective: 09/24/18 13:28 Vital Signs Temperature 97.2 F L 09/24/18 10:04 Pulse Rate 73 09/24/18 10:04 Respiratory Rate 18 09/24/18 10:04 Blood Pressure 104/71 09/24/18 10:04 O2 Sat by Pulse Oximetry (%) Assessment: 09/24/18 13:28 detox completed,no withdrawal symptom Plan: discharge today,follow up with after care program as arrangement and [facility]tp clinic
--- NOTE | 2018-09-24 13:32 | DS ---
[facility] Detox Discharge Summary Admission Date: 09/20/18 Discharge Date: 09/24/18 - History Present History: Alcohol Dependence, Cannabis Dependence, MMTP Additional Comments: follow p with after care program as arrangement Pertinent Past History: asthma - Physical Exam Results Vital Signs: Vital Signs Temperature 97.2 F L 09/24/18 10:04 Pulse Rate 73 09/24/18 10:04 Respiratory Rate 18 09/24/18 10:04 Blood Pressure 104/71 09/24/18 10:04 O2 Sat by Pulse Oximetry (%) Pertinent Admission Physical Exam Findings: withdrawal signs and symptom Laboratory Last Values WBC 6.1 K/mm3 (4.0-10.0) 09/21/18 08:30 RBC 4.57 M/mm3 (4.00-5.60) 09/21/18 08:30 Hgb 13.0 GM/dL (11.7-16.9) 09/21/18 08:30 Hct 40.2 % (35.4-49) 09/21/18 08:30 MCV 87.9 fl (80-96) 09/21/18 08:30 MCH 28.4 pg (25.7-33.7) 09/21/18 08:30 MCHC 32.3 g/dl (32.0-35.9) 09/21/18 08:30 RDW 12.6 % (11.9-15.9) 09/21/18 08:30 Plt Count 200 K/MM3 (134-434) 09/21/18 08:30 MPV 9.9 fl (7.5-11.1) 09/21/18 08:30 Sodium 141 mmol/L (136-145) 09/21/18 08:30 Potassium 4.1 mmol/L (3.5-5.1) 09/21/18 08:30 Chloride 108 mmol/L (98-107) H 09/21/18 08:30 Carbon Dioxide 25 mmol/L (21-32) 09/21/18 08:30 Anion Gap 7 MMOL/L (8-16) L 09/21/18 08:30 BUN 14.6 mg/dL (7-18) 09/21/18 08:30 Creatinine 0.9 mg/dL (0.55-1.3) 09/21/18 08:30 Est GFR (CKD-EPI)AfAm 118.30 07/09/19 08:30 Est GFR (CKD-EPI)NonAf 102.07 09/21/18 08:30 Random Glucose 110 mg/dL (74-106) H 09/21/18 08:30 Calcium 9.4 mg/dL (8.5-10.1) 09/21/18 08:30 Total Bilirubin 0.6 mg/dL (0.2-1) 09/21/18 08:30 AST 27 U/L (15-37) 09/21/18 08:30 ALT 41 U/L (13-61) 09/21/18 08:30 Alkaline Phosphatase 99 U/L (45-117) 09/21/18 08:30 Total Protein 7.3 g/dl (6.4-8.2) 09/21/18 08:30 Albumin 4.0 g/dl (3.4-5.0) 09/21/18 08:30 Urine Color Dk yellow 09/21/18 10:45 Urine Appearance Clear 09/21/18 10:45 Urine pH 5.5 (5.0-8.0) 09/21/18 10:45 Ur Specific [place] 1.026 (1.010-1.035) 09/21/18 10:45 Urine Protein Negative (NEGATIVE) 09/21/18 10:45 Urine Glucose (UA) Negative (NEGATIVE) 09/21/18 10:45 Urine Ketones Trace (NEGATIVE) H 09/21/18 10:45 Urine Blood Negative (NEGATIVE) 09/21/18 10:45 Urine Nitrite Negative (NEGATIVE) 09/21/18 10:45 Urine Bilirubin Negative (NEGATIVE) 09/21/18 10:45 Urine Urobilinogen 1.0 mg/dL (0.2-1.0) 09/21/18 10:45 Ur Leukocyte Esterase Negative (NEGATIVE) 09/21/18 10:45 RPR Titer Nonreactive (NONREACTIVE) 09/21/18 08:30 TB Test (QFT) Nil 0.04 IU/mL (.) 09/21/18 10:15 TB Test (QFT) Mitogen >10.00 IU/mL (.) 09/21/18 10:15 TB Test (QFT) Antigen 0.05 IU/mL (.) 09/21/18 10:15 TB Test (QFT) Negative (Negative) 09/21/18 10:15 TB Positive Criteria (.) 09/21/18 10:15 - Treatment Hospital Course: Detox Protocol Followed, Detoxed Safely, Responded well, Discharged Condition Good Patient has Accepted a Rehab Referral to: declined - Medication Discharge Medications: Ambulatory Orders hydrOXYzine HCL [Atarax -] 50 mg PO BID PRN 06/10/16 Salmeterol/Fluticasone [Advair 250Mcg/50Mcg -] 1 inh PO BID 08/12/16 Docusate Sodium [Colace -] 100 mg PO BID #60 cap 07/15/17 Quetiapine Fumarate [Seroquel] 100 mg PO HS #30 tablet 01/19/18 Ranitidine HCl [Zantac] 150 mg PO BID #60 tablet 01/19/18 Albuterol Sulfate Inhaler - [Ventolin HFA Inhaler -] 2 inh PO Q4H PRN #1 inhaler 09/23/18 Budesonide/Formeterol Fumarate [SYMBICORT 80/4.5mcg -] 2 puff IH BID #1 inhaler 09/23/18 Gabapentin [Neurontin -] 100 mg PO TID #90 capsule 09/23/18 Montelukast Na [Singulair -] 10 mg PO HS #30 tablet 09/23/18 - Diagnosis (1) Alcohol dependence with uncomplicated withdrawal Current Visit: Yes Status: Acute (2) Asthma Current Visit: No Status: Chronic Qualifiers: Asthma severity: mild Asthma persistence: unspecified Asthma complication type: uncomplicated Qualified Code(s): J45.909 - Unspecified asthma, uncomplicated (3) Cocaine dependence, uncomplicated Current Visit: No Status: Chronic (4) GERD (gastroesophageal reflux disease) Current Visit: No Status: Chronic Qualifiers: Esophagitis presence: without esophagitis Qualified Code(s): K21.9 - Gastro -esophageal reflux disease without esophagitis - AMA Did Patient Leave Against Medical Advice: No
[2018-09-24 13:36] VITALS: TEMP 96.8
[2018-09-24] MEDS: MAG HYDROX/AL HYDROX/SIMETH 30 ML UNIT-DOSE CUP PO PRN ×2 (14:30→17:31)
--- NOTE | 2018-09-24 16:43 | PN ---
[facility] Progress Note Note: Psychiatric nurse practitioner note: Paving Supervisor unable to complete psychiatric consultation as patient was discharged today.Stated to sba underwriter he's leaving today and does not need to see sba underwriter.
[2018-09-24 17:32] VITALS: BP 110/72; PULSE 62
--- NOTE | 2018-09-24 18:10 | CONSULT ---
[facility] Psychiatric Consult - Data Date of interview: 09/24/18 Admission source: [facility] Identifying data: Psychiatric consultation refused. Patient discharged from the unit. Stated earlier, " I am leaving soon i don't have to see you anymore."
== END 2018-09-24 18:30 | disposition home or self-care (01) | DRG 897 ==
LOC: YASAS 11:41 → Y3N 16:21
PROVIDERS: ADMIT Surgery; ATTEND Surgery
PROC: HZ2ZZZZ Detoxification Services for Substance Abuse Treatment (ICD-10-PCS; principal; 2018-09-20)
DX: F10.230 Alcohol dependence with withdrawal, uncomplicated (principal); F11.20 Opioid dependence, uncomplicated; F14.20 Cocaine dependence, uncomplicated; F33.9 Major depressive disorder, recurrent, unspecified; F17.210 Nicotine dependence, cigarettes, uncomplicated; F10.282 Alcohol dependence with alcohol-induced sleep disorder; F31.9 Bipolar disorder, unspecified; F41.9 Anxiety disorder, unspecified; J45.909 Unspecified asthma, uncomplicated; K21.9 Gastro-esophageal reflux disease without esophagitis; K59.00 Constipation, unspecified; Z96.641 Presence of right artificial hip joint
CPT/HCPCS: 36415; 80053; 81003; 85027; 86480; 86593; 93005; 93010

== ENCOUNTER 2018-12-20 16:16 | Inpatient (IN) | payer OTHER ==
[2018-12-20 20:57] VITALS: BMI 25.4
--- NOTE | 2018-12-20 22:30 | HP ---
COWS - Scale Resting Pulse: 0= [place] 80 or Below Sweatin=Flushed/Facial Moisture Restless Observation: 0= Sits Still Pupil Size: 0= Normal to Room Light Bone or Joint Aches: 4=Acute Joint/Muscle Pain Runny Nose/ Eye Tearin= Runny Nose/Eyes GI Upset > 30mins: 1= Stomach Cramp Tremor Observation: 2= Slight Tremor Visible Yawning Observation: 0= None Anxiety or Irritability: 0= None Goose Flesh Skin: 3=Piloerection COWS Score: 14 CIWA Score Nausea/Vomitin-Mild Nausea/No Vomiting Muscle Tremors: 4-Moderate,w/Arms Extend Anxiety: 4-Mod. Anxious/Guarded Agitation: 3 Paroxysmal Sweats: 1-Minimal Palms Moist Orientation: 0-Oriented Tacttile Disturbances: 0-None Auditory Disturbances: 0-None Visual Disturbances: 0-None Headache: 0-None Present CIWA-Ar Total Score: 13 - Admission Criteria OASAS Guidelines: Admission for Medically Managed Detox: Requires at least one of the followin. CIWA greater than 12 2. Seizures within the past 24 hours 3. Delirium tremens within the past 24 hours 4. Hallucinations within the past 24 hours 5. Acute intervention needed for co occurring medical disorder 6. Acute intervention needed for co occurring psychiatric disorder 7. Severe withdrawal that cannot be handled at a lower level of care (continued vomiting, continued diarrhea, abnormal vital signs) requiring intravenous medication and/or fluids 8. Admitting History and Physical - Smoking History Smoking history: Former smoker Have you smoked in the past 12 months: No Aproximately how many cigarettes per day: 10 If you are a former smoker, when did you quit?: 2016 - Alcohol/Substance Use Hx Alcohol Use: Yes Admission [facility] Chief Complaint: Heroin and alcohol withdrawal symptoms Allergies/Adverse Reactions: Allergies Allergy/AdvReac Type Severity Reaction Status Date / Time fish derived Allergy Severe Rash Verified 12/20/18 20:46 morphine Allergy Severe Rash Verified 12/20/18 20:46 egg Allergy Verified 12/21/18 00:18 fish Allergy Severe Rash Uncoded 12/20/18 20:46 History of Present Illness: 48 years old male with 24 years of heroin and alcohol dependence is seeking admission to detox. He is currently on methadone 90mg tablet oral daily at [facility]. LDM is today. Dose is to be verified by the nurse. He reports 3 years of sobriety and denies blackouts and seizures.He has medical history of Hep C (treated and reinfected), asthma, GERD and constipation. He reports psych. history of insomnia, depression and anxiety.He is currently an active intravenous drug user and reports that he shots both heroin and cocaine. ] Exam Limitations: No Limitations - Ebola screening Have you traveled outside of the country in the last 21 days: No (N) Have you had contact with anyone from an Ebola affected area: No Do you have a fever: No - Review of Systems Constitutional: Chills, Malaise, Night Sweats, Changes in sleep EENT: reports: No Symptoms Reported Respiratory: reports: No Symptoms reported Cardiac: reports: No Symptoms Reported GI: reports: Nausea, Poor Appetite, Poor Fluid Intake : reports: No Symptoms Reported Musculoskeletal: reports: Joint Pain, Muscle Pain Integumentary: reports: Dryness, Flushing Neuro: reports: Tremors Endocrine: reports: No Symptoms Reported Hematology: reports: No Symptoms Reported Psychiatric: reports: Mood/Affect Appropiate, Orientated x3 Other Systems: Reviewed and Negative Patient History - Patient Medical History Hx Anemia: No Hx Asthma: Yes (Albuterol) Hx Chronic Obstructive Pulmonary Disease (COPD): No Hx Cancer: No Hx Cardiac Disorders: No Hx Congestive Heart Failure: No Hx Hypertension: No Hx Hypercholesterolemia: No Hx Pacemaker: No HX Cerebrovascular Accident: No Hx Seizures: No Hx Dementia: No Hx Diabetes: No Hx Gastrointestinal Disorders: Yes (GERD) Hx Liver Disease: No Hx Genitourinary Disorders: No Hx Sexually Transmitted Disorders: No (Denies) Hx Renal Disease (ESRD): No Hx Thyroid Disease: No Hx Human Immunodeficiency Virus (HIV): No (NEGATIVE HX, 12/2017) Hx Hepatitis C: Yes (Treated and reinfected) Hx Depression: Yes (Seroquel) Hx Suicide Attempt: No (Denies suicidal ideation at this time) Hx Bipolar Disorder: Yes (Not on medication) Hx Schizophrenia: No Other Medical History: Constipation -Colace - Patient Surgical History Past Surgical History: Yes Hx Neurologic Surgery: No Hx Cataract Extraction: No Hx Cardiac Surgery: No Hx Lung Surgery: No Hx Breast Surgery: No Hx Breast Biopsy: No Hx Abdominal Surgery: No Hx Appendectomy: No Hx Cholecystectomy: No Hx Genitourinary Surgery: No Hx Section: No Hx Orthopedic Surgery: Yes (right hip replacement in 2013; right knee replacement 2018) Anesthesia Reaction: No - PPD History Previous Implant?: Yes Documented Results: Negative w/proof Implanted On Prior [facility] Admission?: Yes Date: 06/28/17 Results: 0mm PPD to be Administered?: Yes - Reproductive History Patient is a Female of Child Bearing Age (11 -55 yrs old): No ( male) - Smoking Cessation Smoking history: Current every day smoker Have you smoked in the past 12 months: Yes Aproximately how many cigarettes per day: 10 Hx Chewing Tobacco Use: No Initiated information on smoking cessation: Yes 'Breaking Loose' booklet given: 12/20/18 - Substance & Tx. History Hx Alcohol Use: Yes Hx Substance Use: Yes Substance Use Type: Alcohol, Cocaine, Heroin, Opiates Hx Substance Use Treatment: Yes ([facility]) - Substances abused Heroin Substance route: Injection Frequency: Daily Amount used: 8 BAGS Age of first use: 26 Date of last use: 12/19/18 Cocaine Substance route: Injection Frequency: Daily Amount used: 10 BAGS Age of first use: 31 Date of last use: 12/19/18 Alcohol Substance route: Oral Frequency: Daily Amount used: 4-5 CANS OF BEER and 1 pint of vodka Age of first use: 23 Date of last use: 12/20/18 Admission Physical Exam [facility] - Vital Signs Vital Signs: Vital Signs - 24 hr 12/20/18 20:52 Temperature 97.5 F L Pulse Rate 56 L Respiratory 14 Rate Blood Pressure 124/83 - Physical General Appearance: Yes: Moderate Distress, Tremorous, Sweating, Anxious HEENTM: Yes: Within Normal Limits Respiratory: Yes: Lungs Clear, Normal Breath Sounds, No Respiratory Distress Neck: Yes: Supple Breast: Yes: Breast Exam Deferred Cardiology: Yes: Regular Rhythm, Regular Rate Abdominal: Yes: Within Normal Limits, Normal Bowel Sounds, Soft Back: Yes: Normal Inspection Musculoskeletal: Yes: Muscle Pain Extremities: Yes: Tremors Neurological: Yes: Within Normal Limits, Alert, Normal Mood/Affect Integumentary: Yes: Warm Lymphatic: Yes: Within Normal Limits - Diagnostic (1) Alcohol dependence with uncomplicated withdrawal Current Visit: No Status: Acute (2) Asthma Current Visit: No Status: Chronic Qualifiers: Asthma severity: mild Asthma persistence: unspecified Asthma complication type: uncomplicated Qualified Code(s): J45.909 - Unspecified asthma, uncomplicated (3) Cocaine dependence Current Visit: No Status: Chronic Qualifiers: Substance use status: uncomplicated Qualified Code(s): F14.20 - Cocaine dependence, uncomplicated (4) Constipation Current Visit: No Status: Chronic Qualifiers: Constipation type: unspecified constipation type Qualified Code(s): K59.00 - Constipation, unspecified (5) GERD (gastroesophageal reflux disease) Current Visit: No Status: Chronic Qualifiers: Esophagitis presence: without esophagitis Qualified Code(s): K21.9 - Gastro -esophageal reflux disease without esophagitis (6) History of hepatitis C virus infection Current Visit: No Status: Chronic (7) Methadone maintenance therapy patient Current Visit: No Status: Chronic Comment: Patient currently on 110mg, last medicated today, dose pending verification. (8) Nicotine dependence Current Visit: No Status: Chronic Qualifiers: Nicotine product type: cigarettes Substance use status: in withdrawal Qualified Code(s): F17.213 - Nicotine dependence, cigarettes, with withdrawal Cleared for Admission [facility] - Detox or Rehab [facility] Level of Care: Medically Managed Detox Regimen/Protocol: Librium Breathalyzer - Breathalyzer Breathalyzer: 0 Urine Drug Screen - Test Device Lot number: [id number] Expiration date: 08/13/20 - Control Is test valid?: Yes - Results Drug screen NEGATIVE: No Urine drug screen results: CLEVE-Cocaine, MET-Methamphetamine, FEN-Fentanyl, MOP- Opiates, MTD-Methadone, BZO-Benzodiazepines Inpatient Rehab Admission - Rehab Decision to Admit Inpatient rehab admission?: No
[2018-12-20] MEDS ORDERED: METHOCARBAMOL 500 MG TABLET PO PRN (22:59)
[2018-12-20] MEDS ORDERED: BISMUTH SUBSALICYLATE 524 MG/30 ML UD PO PRN (22:59)
[2018-12-20] MEDS ORDERED: MENTHOL/PHENOL 1 EACH UD MM PRN (22:59)
[2018-12-20] MEDS ORDERED: chlordiazePOXIDE HCL 10 MG CAPSULE PO PRN (22:59)
[2018-12-20] MEDS ORDERED: IBUPROFEN 400 MG TABLET (FP) PO PRN (22:59)
[2018-12-20] MEDS ORDERED: ACETAMINOPHEN 325 MG TABLET (FP) PO PRN ×2 (22:59)
[2018-12-20] MEDS ORDERED: MAGNESIUM CITRATE 300 ML BOTTLE PO PRN (22:59)
[2018-12-20] MEDS ORDERED: MAGNESIUM HYDROX 2400MG/30ML ORAL SUSPENSION 30 ML CUP PO PRN (22:59)
[2018-12-20] MEDS ORDERED: MAG HYDROX/AL HYDROX/SIMETH 30 ML UNIT-DOSE CUP PO PRN (22:59)
[2018-12-20] MEDS ORDERED: hydrOXYzine PAMOATE 25 MG CAPSULE (FP) PO PRN (22:59)
[2018-12-20] MEDS: chlordiazePOXIDE HCL 25 MG CAPSULE PO SCH (23:47)
[2018-12-20] MEDS: MELATONIN 5 MG TABLETS PO PRN (23:52)
[2018-12-21] MEDS: chlordiazePOXIDE HCL 25 MG CAPSULE PO SCH ×3 (07:02→21:53)
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
[2018-12-21] MEDS ORDERED: METHADONE HCL 10 MG TABLET PO ONE (10:57)
[2018-12-21] MEDS: RANITIDINE HCL 150 MG TABLET (FP) PO SCH ×2 (11:00→21:53)
[2018-12-21] MEDS ORDERED: METHADONE 80 MG, METHADONE 10 MG PO ONE (11:15)
[2018-12-21] MEDS ORDERED: METHADONE HCL 40 MG DISPERSABLE TABLET ONE (11:17)
[2018-12-21] MEDS ORDERED: METHADONE HCL 10 MG TABLET ONE (11:17)
[2018-12-21] MEDS: PRENATAL VITAMINS W/ FOLIC ACID TABLET (FP) PO SCH (11:18)
[2018-12-21] MEDS: NICOTINE 21 MG/24 HOURS TOPICAL PATCH TD SCH (11:20)
--- NOTE | 2018-12-21 12:35 | PN ---
[facility] CIWA - CIWA Score Nausea/Vomitin-No Nausea/No Vomiting Muscle Tremors: 3 Anxiety: 3 Agitation: 3 Paroxysmal Sweats: 2 Orientation: 0-Oriented Tacttile Disturbances: 0-None Auditory Disturbances: 0-None Visual Disturbances: 0-None Headache: 0-None Present CIWA-Ar Total Score: 11 S COWS - Scale Resting Pulse: 0= [place] 80 or Below Sweatin= Chills/Flushing Restless Observation: 1= Difficult to Sit Still Pupil Size: 0= Normal to Room Light Bone or Joint Aches: 1= Mild Discomfort Runny Nose/ Eye Tearin= Nasal Congestion GI Upset > 30mins: 0= None Tremor Observation of Outstretched Hands: 1= Tremor [place], Not Seen Yawning Observation: 1= 1-2x During Session Anxiety or Irritability: 1=Feels Anxious/Irritable Goose Flesh Skin: 3=Piloerection COWS Score: 10 [facility] Progress Note (SOAP) Subjective: sweats shakes chills body aches interrupted sleep nausea poor appetite Objective: 12/21/18 12:31 Vital Signs Temperature 98.1 F 12/21/18 09:20 Pulse Rate 60 12/21/18 09:20 Respiratory Rate 18 12/21/18 09:20 Blood Pressure 119/68 12/21/18 09:20 O2 Sat by Pulse Oximetry (%) labs pending aaox3 ambulating no acute distress Assessment: 12/21/18 12:32 withdrawals sx Plan: continue detox increase fluids
[2018-12-21] MEDS: ALBUTEROL SO4 8 GM HFA INHALER IH PRN ×2 (18:23→22:13)
[2018-12-21] MEDS: NICOTINE POLACRILEX 2 MG GUM BUC PRN ×2 (18:25→20:42)
[2018-12-21] MEDS: MELATONIN 5 MG TABLETS PO PRN (21:52)
[2018-12-21] MEDS: THIAMINE HCL 100 MG TABLET (FP) PO SCH (21:53)
[2018-12-21] MEDS: MONTELUKAST NA 10 MG TABLET PO SCH (21:53)
[2018-12-21] MEDS: QUEtiapine FUMARATE 100 MG TABLET (FP) PO SCH (21:54)
[2018-12-22] MEDS ORDERED: METHADONE HCL 40 MG DISPERSABLE TABLET ONE (05:03)
[2018-12-22] MEDS ORDERED: METHADONE HCL 10 MG TABLET ONE (05:03)
[2018-12-22] MEDS ORDERED: METHADONE HCL 40 MG DISPERSABLE TABLET PO SCH (06:00)
[2018-12-22] MEDS: chlordiazePOXIDE 5 MG CAPSULE PO SCH ×3 (06:09→22:14)
[2018-12-22] MEDS: METHADONE 80 MG, METHADONE 10 MG PO SCH (06:10)
[2018-12-22] MEDS: NICOTINE POLACRILEX 2 MG GUM BUC PRN ×3 (07:15→22:17)
[2018-12-22] MEDS: NICOTINE 21 MG/24 HOURS TOPICAL PATCH TD SCH (10:33)
[2018-12-22] MEDS: RANITIDINE HCL 150 MG TABLET (FP) PO SCH ×2 (10:33→22:14)
[2018-12-22] MEDS: PRENATAL VITAMINS W/ FOLIC ACID TABLET (FP) PO SCH (10:33)
[2018-12-22 12:02] LABS: ALBUMIN 3.8 g/dl (3.4-5.0); BILIRUBIN,TOTAL 0.5 mg/dL (0.2-1); CALCIUM 9.2 mg/dL (8.5-10.1); CREATININE 0.8 mg/dL (0.55-1.3); POTASSIUM 3.7 mmol/L (3.5-5.1); TOT PROT 7.7 g/dl (6.4-8.2)
[2018-12-22 12:04] LABS: HEMATOCRIT 36.9 % (35.4-49); HEMOGLOBIN 11.7 GM/dL (11.7-16.9); MCH 27.5 pg (25.7-33.7); MCHC 31.8 g/dl (32.0-35.9); MEAN CELL VOLUME 86.5 fl (80-96); MEAN PLT VOLUME 10.2 fl (7.5-11.1); PLATELET COUNT 189 K/MM3 (134-434); RBC 4.26 M/mm3 (4.00-5.60); RDW 13.7 % (11.9-15.9); WHITE BLOOD COUNT 4.5 K/mm3 (4.0-10.0)
--- NOTE | 2018-12-22 12:38 | PN ---
[facility] CIWA - CIWA Score Nausea/Vomitin-No Nausea/No Vomiting Muscle Tremors: 2 Anxiety: 2 Agitation: 2 Paroxysmal Sweats: 2 Orientation: 0-Oriented Tacttile Disturbances: 0-None Auditory Disturbances: 0-None Visual Disturbances: 0-None Headache: 0-None Present CIWA-Ar Total Score: 8 [facility] COWS - Scale Resting Pulse: 0= [place] 80 or Below Sweatin= Chills/Flushing Restless Observation: 1= Difficult to Sit Still Pupil Size: 0= Normal to Room Light Bone or Joint Aches: 1= Mild Discomfort Runny Nose/ Eye Tearin= Nasal Congestion GI Upset > 30mins: 0= None Tremor Observation of Outstretched Hands: 1= Tremor [place], Not Seen Yawning Observation: 1= 1-2x During Session Anxiety or Irritability: 1=Feels Anxious/Irritable Goose Flesh Skin: 0=Smooth Skin COWS Score: 7 S Progress Note (SOAP) Subjective: sweats chills tired interrupted sleep body aches Objective: 12/22/18 12:37 Vital Signs Temperature 98.1 F 12/22/18 10:17 Pulse Rate 52 L 12/22/18 10:17 Respiratory Rate 18 12/22/18 10:17 Blood Pressure 102/52 L 12/22/18 10:17 O2 Sat by Pulse Oximetry (%) Laboratory Tests 12/22/18 12/22/18 08:45 08:45 WBC 4.5 RBC 4.26 Hgb 11.7 Hct 36.9 MCV 86.5 MCH 27.5 MCHC 31.8 L RDW 13.7 Plt Count 189 MPV 10.2 Sodium 142 Potassium 3.7 Chloride 105 Carbon Dioxide 31 Anion Gap 6 L BUN 11.0 Creatinine 0.8 Est GFR (CKD-EPI)AfAm 124.16 Est GFR (CKD-EPI)NonAf 107.13 Random Glucose 59 L Calcium 9.2 Total Bilirubin 0.5 AST 29 ALT 35 Alkaline Phosphatase 111 Total Protein 7.7 Albumin 3.8 labs noted aaox3 ambulating no acute distress Assessment: 12/22/18 12:37 withdrawals Plan: continue detox increase fluids
[2018-12-22] MEDS: THIAMINE HCL 100 MG TABLET (FP) PO SCH (22:13)
[2018-12-22] MEDS: QUEtiapine FUMARATE 100 MG TABLET (FP) PO SCH (22:14)
[2018-12-22] MEDS: MONTELUKAST NA 10 MG TABLET PO SCH (22:14)
[2018-12-22] MEDS: ALBUTEROL SO4 8 GM HFA INHALER IH PRN (23:04)
[2018-12-23] MEDS ORDERED: chlordiazePOXIDE HCL 10 MG CAPSULE PO PRN
[2018-12-23] MEDS ORDERED: METHADONE HCL 10 MG TABLET ONE (05:21)
[2018-12-23] MEDS ORDERED: METHADONE HCL 40 MG DISPERSABLE TABLET ONE (05:21)
[2018-12-23] MEDS: METHADONE 80 MG, METHADONE 10 MG PO SCH (06:13)
[2018-12-23] MEDS: chlordiazePOXIDE HCL 10 MG CAPSULE PO SCH ×3 (06:14→22:04)
[2018-12-23] MEDS: NICOTINE POLACRILEX 2 MG GUM BUC PRN ×6 (06:16→22:36)
[2018-12-23] MEDS: NICOTINE 21 MG/24 HOURS TOPICAL PATCH TD SCH (10:08)
[2018-12-23] MEDS: RANITIDINE HCL 150 MG TABLET (FP) PO SCH ×2 (10:08→22:04)
[2018-12-23] MEDS: PRENATAL VITAMINS W/ FOLIC ACID TABLET (FP) PO SCH (10:08)
[2018-12-23] MEDS ORDERED: DOCUSATE SODIUM 100 MG CAPSULE (FP) PO ONE (10:14)
--- NOTE | 2018-12-23 11:54 | PN ---
S CIWA - CIWA Score Nausea/Vomitin-No Nausea/No Vomiting Muscle Tremors: 2 Anxiety: 1-Mildly Anxious Agitation: 1-Slight > Activity Paroxysmal Sweats: 1-Minimal Palms Moist Orientation: 0-Oriented Tacttile Disturbances: 0-None Auditory Disturbances: 0-None Visual Disturbances: 0-None Headache: 0-None Present CIWA-Ar Total Score: 5 BHS COWS - Scale Resting Pulse: 0= VT 80 or Below Sweatin= Chills/Flushing Restless Observation: 1= Difficult to Sit Still Pupil Size: 0= Normal to Room Light Bone or Joint Aches: 1= Mild Discomfort Runny Nose/ Eye Tearin= None GI Upset > 30mins: 0= None Tremor Observation of Outstretched Hands: 1= Tremor [place], Not Seen Yawning Observation: 1= 1-2x During Session Anxiety or Irritability: 1=Feels Anxious/Irritable Goose Flesh Skin: 0=Smooth Skin COWS Score: 6 S Progress Note (SOAP) Subjective: constipation sweats Objective: 12/23/18 11:53 Vital Signs Temperature 97.9 F 12/23/18 09:42 Pulse Rate 54 L 12/23/18 09:42 Respiratory Rate 16 12/23/18 09:42 Blood Pressure 90/59 L 12/23/18 09:42 O2 Sat by Pulse Oximetry (%) Laboratory Results - last 24 hr 12/22/18 12/22/18 12/22/18 08:45 08:45 08:45 WBC 4.5 RBC 4.26 Hgb 11.7 Hct 36.9 MCV 86.5 MCH 27.5 MCHC 31.8 L RDW 13.7 Plt Count 189 MPV 10.2 Sodium 142 Potassium 3.7 Chloride 105 Carbon Dioxide 31 Anion Gap 6 L BUN 11.0 Creatinine 0.8 Est GFR (CKD-EPI)AfAm 124.16 Est GFR (CKD-EPI)NonAf 107.13 Random Glucose 59 L Calcium 9.2 Total Bilirubin 0.5 AST 29 ALT 35 Alkaline Phosphatase 111 Total Protein 7.7 Albumin 3.8 RPR Titer Nonreactive HIV 1&2 Antibody Screen HIV P24 Antigen 12/22/18 08:45 WBC RBC Hgb Hct MCV MCH MCHC RDW Plt Count MPV Sodium Potassium Chloride Carbon Dioxide Anion Gap BUN Creatinine Est GFR (CKD-EPI)AfAm Est GFR (CKD-EPI)NonAf Random Glucose Calcium Total Bilirubin AST ALT Alkaline Phosphatase Total Protein Albumin RPR Titer HIV 1&2 Antibody Screen Negative HIV P24 Antigen Negative aaox3 ambulating no acute distress Assessment: 12/23/18 11:53 mild withdrawals Plan: colace 100mg tid mom/mylanta increase fluids d/c in am
[2018-12-23] MEDS: DOCUSATE SODIUM 100 MG CAPSULE (FP) PO SCH ×2 (13:07→22:04)
[2018-12-23] MEDS: MONTELUKAST NA 10 MG TABLET PO SCH (22:04)
[2018-12-23] MEDS: THIAMINE HCL 100 MG TABLET (FP) PO SCH (22:04)
[2018-12-23] MEDS: ALBUTEROL SO4 8 GM HFA INHALER IH PRN (22:05)
[2018-12-23] MEDS: QUEtiapine FUMARATE 100 MG TABLET (FP) PO SCH (22:07)
[2018-12-24] MEDS ORDERED: chlordiazePOXIDE HCL 10 MG CAPSULE PO ONE (05:00)
[2018-12-24] MEDS ORDERED: METHADONE HCL 10 MG TABLET ONE (06:08)
[2018-12-24] MEDS ORDERED: METHADONE HCL 40 MG DISPERSABLE TABLET ONE (06:08)
[2018-12-24] MEDS: DOCUSATE SODIUM 100 MG CAPSULE (FP) PO SCH (06:11)
[2018-12-24] MEDS: METHADONE 80 MG, METHADONE 10 MG PO SCH (06:11)
[2018-12-24] MEDS: NICOTINE POLACRILEX 2 MG GUM BUC PRN (08:41)
--- NOTE | 2018-12-24 09:16 | DS ---
[facility] Detox Discharge Summary Admission Date: 12/20/18 Discharge Date: 12/24/18 - History Present History: Alcohol Dependence, Cocaine Dependence, Opioid Dependence, Sedative Dependence, MMTP - Physical Exam Results Vital Signs: Vital Signs Temperature 97.7 F 12/24/18 06:00 Pulse Rate 53 L 12/24/18 06:00 Respiratory Rate 18 12/24/18 06:00 Blood Pressure 107/58 L 12/24/18 06:00 O2 Sat by Pulse Oximetry (%) Pertinent Admission Physical Exam Findings: pt arrived in withdrawals Laboratory Tests 12/22/18 12/22/18 12/22/18 08:45 08:45 08:45 WBC 4.5 RBC 4.26 Hgb 11.7 Hct 36.9 MCV 86.5 MCH 27.5 MCHC 31.8 L RDW 13.7 Plt Count 189 MPV 10.2 Sodium 142 Potassium 3.7 Chloride 105 Carbon Dioxide 31 Anion Gap 6 L BUN 11.0 Creatinine 0.8 Est GFR (CKD-EPI)AfAm 124.16 Est GFR (CKD-EPI)NonAf 107.13 Random Glucose 59 L Calcium 9.2 Total Bilirubin 0.5 AST 29 ALT 35 Alkaline Phosphatase 111 Total Protein 7.7 Albumin 3.8 RPR Titer Nonreactive HIV 1&2 Antibody Screen HIV P24 Antigen 12/22/18 08:45 WBC RBC Hgb Hct MCV MCH MCHC RDW Plt Count MPV Sodium Potassium Chloride Carbon Dioxide Anion Gap BUN Creatinine Est GFR (CKD-EPI)AfAm Est GFR (CKD-EPI)NonAf Random Glucose Calcium Total Bilirubin AST ALT Alkaline Phosphatase Total Protein Albumin RPR Titer HIV 1&2 Antibody Screen Negative HIV P24 Antigen Negative pt is aaox3 ambulating no acute distress - Treatment Hospital Course: Detox Protocol Followed, Detoxed Safely, Responded well, Discharged Condition Good, Rehab Referral Accepted Patient has Accepted a Rehab Referral to: pt referred to [facility] inpatient rehab - Medication Discharge Medications: Ambulatory Orders Docusate Sodium [Colace -] 100 mg PO BID #60 cap 07/15/17 Quetiapine Fumarate [Seroquel -] 100 mg PO HS #30 tablet 01/19/18 Ranitidine HCl [Zantac] 150 mg PO BID #60 tablet 01/19/18 Albuterol Sulfate Inhaler - [Ventolin HFA Inhaler -] 2 inh PO Q4H PRN #1 inhaler 09/23/18 Montelukast Na [Singulair -] 10 mg PO HS #30 tablet 09/23/18 - Diagnosis (1) Cocaine dependence Current Visit: Yes Status: Chronic Qualifiers: Substance use status: uncomplicated Qualified Code(s): F14.20 - Cocaine dependence, uncomplicated (2) Alcohol dependence with uncomplicated withdrawal Current Visit: Yes Status: Chronic (3) Allergic rhinitis Current Visit: No Status: Acute Qualifiers: Allergic rhinitis seasonality: unspecified seasonality (4) Amphetamine abuse Current Visit: Yes Status: Acute (5) Bipolar I disorder, most recent episode depressed Current Visit: No Status: Acute (6) Insomnia Current Visit: No Status: Acute Qualifiers: Insomnia type: unspecified Qualified Code(s): G47.00 - Insomnia, unspecified (7) Sedative, hypnotic or anxiolytic dependence with withdrawal, uncomplicated Current Visit: Yes Status: Chronic (8) Substance induced mood disorder Current Visit: No Status: Acute (9) Substance-induced sleep disorder Current Visit: No Status: Acute (10) Anxious mood Current Visit: No Status: Chronic (11) Asthma Current Visit: Yes Status: Chronic Qualifiers: Asthma severity: mild Asthma persistence: unspecified Asthma complication type: uncomplicated Qualified Code(s): J45.909 - Unspecified asthma, uncomplicated (12) Cocaine dependence, uncomplicated Current Visit: Yes Status: Chronic (13) GERD (gastroesophageal reflux disease) Current Visit: Yes Status: Chronic Qualifiers: Esophagitis presence: without esophagitis Qualified Code(s): K21.9 - Gastro -esophageal reflux disease without esophagitis (14) History of hepatitis C virus infection Current Visit: No Status: Chronic (15) Methadone maintenance therapy patient Current Visit: Yes Status: Chronic (16) Nicotine dependence Current Visit: Yes Status: Chronic Qualifiers: Nicotine product type: cigarettes Substance use status: uncomplicated Qualified Code(s): F17.210 - Nicotine dependence, cigarettes, uncomplicated (17) Substance-induced sleep disorder Current Visit: No Status: Chronic (18) Bipolar II disorder Current Visit: No Status: Suspected (19) History of seizures Current Visit: No Status: Resolved (20) Bipolar II disorder Current Visit: Yes Status: Ruled-out (21) MDD (major depressive disorder) Current Visit: Yes Status: Ruled-out (22) Substance induced mood disorder Current Visit: No Status: Ruled-out - AMA Did Patient Leave Against Medical Advice: No
[2018-12-24 09:27] VITALS: BP 106/56; PULSE 57; TEMP 97.2
[2018-12-24] MEDS: NICOTINE 21 MG/24 HOURS TOPICAL PATCH TD SCH (10:17)
[2018-12-24] MEDS: RANITIDINE HCL 150 MG TABLET (FP) PO SCH (10:17)
[2018-12-24] MEDS: PRENATAL VITAMINS W/ FOLIC ACID TABLET (FP) PO SCH (10:17)
== END 2018-12-24 13:25 | disposition other institution (70) | DRG 897 ==
LOC: YASAS 16:16 → Y6N 23:19
PROVIDERS: ADMIT Allergy & Immunology; ATTEND Allergy & Immunology
PROC: HZ2ZZZZ Detoxification Services for Substance Abuse Treatment (ICD-10-PCS; principal; 2018-12-20)
DX: F10.230 Alcohol dependence with withdrawal, uncomplicated (principal); F11.20 Opioid dependence, uncomplicated; F14.20 Cocaine dependence, uncomplicated; F19.282 Other psychoactive substance dependence with psychoactive substance-induced sleep disorder; F31.81 Bipolar II disorder; F13.230 Sedative, hypnotic or anxiolytic dependence with withdrawal, uncomplicated; F15.10 Other stimulant abuse, uncomplicated; F17.210 Nicotine dependence, cigarettes, uncomplicated; F19.24 Other psychoactive substance dependence with psychoactive substance-induced mood disorder; F39 Unspecified mood [affective] disorder; F41.8 Other specified anxiety disorders; J45.909 Unspecified asthma, uncomplicated; K21.9 Gastro-esophageal reflux disease without esophagitis; G47.00 Insomnia, unspecified; B18.2 Chronic viral hepatitis C; J30.9 Allergic rhinitis, unspecified; Z86.69 Personal history of other diseases of the nervous system and sense organs; Z96.641 Presence of right artificial hip joint; Z96.651 Presence of right artificial knee joint
CPT/HCPCS: 36415; 80053; 85027; 86593; 87389

== ENCOUNTER 2018-12-24 13:55 | Inpatient (IN) | payer OTHER ==
--- NOTE | 2018-12-24 15:19 | HP ---
[facility] Rehab Assess/Revision - Admission History Admitted to Rehab from: [address] - Vital signs Vital Signs: Vital Signs Period Temp Pulse Resp BP Sys/Tavares Pulse Ox Last 24 Hr 98 F 62 18 92/53 - Findings Detox History & Physical reviewed: Yes Concur with findings: Yes Inpatient Rehab Admission - Rehab Decision to Admit Inpatient rehab admission?: Yes - Initial Determination Are CD services needed?: Yes Free of communicable disease: Yes Not in need of hospitalization: Yes - Rehab Admission Criteria Previous failed treatment: Yes Poor recovery environment: Yes Comorbidities: Yes Lacks judgement: Yes Patient is meeting Inpatient Rehab admission criteria:: Yes
[2018-12-24] MEDS ORDERED: MAGNESIUM HYDROX 2400MG/30ML ORAL SUSPENSION 30 ML CUP PO PRN (15:20)
[2018-12-24] MEDS ORDERED: P-EPHED 60MG/TRIPROLIDI 2.5MG TABLET PO PRN (15:20)
[2018-12-24] MEDS ORDERED: LOPERAMIDE HCL 2 MG CAPSULE PO PRN (15:20)
[2018-12-24] MEDS ORDERED: MAGNESIUM CITRATE 300 ML BOTTLE PO PRN (15:20)
[2018-12-24] MEDS ORDERED: ACETAMINOPHEN 325 MG TABLET (FP) PO PRN (15:20)
[2018-12-24] MEDS ORDERED: IBUPROFEN 400 MG TABLET (FP) PO PRN (15:20)
[2018-12-24] MEDS ORDERED: MENTHOL/PHENOL 1 EACH UD MM PRN (15:20)
[2018-12-24] MEDS ORDERED: guaiFENesin 200 MG/10 ML 10 ML UNIT-DOSE CUPS PO PRN (15:20)
[2018-12-24] MEDS ORDERED: hydrOXYzine PAMOATE 50 MG CAPSULE (FP) PO PRN (15:20)
[2018-12-24] MEDS: NICOTINE POLACRILEX 4 MG GUM BUC PRN ×2 (17:50→21:33)
[2018-12-24] MEDS: MONTELUKAST NA 10 MG TABLET PO SCH (21:32)
[2018-12-24] MEDS: THIAMINE HCL 100 MG TABLET (FP) PO SCH (21:32)
[2018-12-24] MEDS: QUEtiapine FUMARATE 100 MG TABLET (FP) PO SCH (21:32)
[2018-12-24] MEDS: DOCUSATE SODIUM 100 MG CAPSULE (FP) PO SCH (21:32)
[2018-12-25] MEDS ORDERED: METHADONE HCL 10 MG TABLET ONE (05:31)
[2018-12-25] MEDS ORDERED: METHADONE HCL 40 MG DISPERSABLE TABLET ONE (05:32)
[2018-12-25] MEDS ORDERED: METHADONE HCL 10 MG TABLET PO SCH (06:00)
[2018-12-25] MEDS: METHADONE 80 MG, METHADONE 10 MG PO SCH (06:24)
[2018-12-25] MEDS: NICOTINE POLACRILEX 4 MG GUM BUC PRN ×4 (06:29→21:33)
[2018-12-25] MEDS: DOCUSATE SODIUM 100 MG CAPSULE (FP) PO SCH ×2 (11:39→21:31)
[2018-12-25] MEDS: PANTOPRAZOLE 40 MG TABLET (FP) PO SCH (11:39)
[2018-12-25] MEDS: NICOTINE 21 MG/24 HOURS TOPICAL PATCH TD SCH (11:40)
[2018-12-25] MEDS: PRENATAL VITAMINS W/ FOLIC ACID TABLET (FP) PO SCH (11:40)
[2018-12-25] MEDS: MAG HYDROX/AL HYDROX/SIMETH 30 ML UNIT-DOSE CUP PO PRN ×2 (16:45→21:32)
[2018-12-25] MEDS: THIAMINE HCL 100 MG TABLET (FP) PO SCH (21:31)
[2018-12-25] MEDS: QUEtiapine FUMARATE 100 MG TABLET (FP) PO SCH (21:31)
[2018-12-25] MEDS: MONTELUKAST NA 10 MG TABLET PO SCH (21:31)
[2018-12-26] MEDS ORDERED: METHADONE HCL 10 MG TABLET ONE (03:21)
[2018-12-26] MEDS ORDERED: METHADONE HCL 40 MG DISPERSABLE TABLET ONE (03:22)
[2018-12-26] MEDS: METHADONE 80 MG, METHADONE 10 MG PO SCH (06:27)
[2018-12-26] MEDS: NICOTINE POLACRILEX 4 MG GUM BUC PRN ×5 (06:28→21:33)
[2018-12-26] MEDS: PANTOPRAZOLE 40 MG TABLET (FP) PO SCH (10:17)
[2018-12-26] MEDS: PRENATAL VITAMINS W/ FOLIC ACID TABLET (FP) PO SCH (10:18)
[2018-12-26] MEDS: DOCUSATE SODIUM 100 MG CAPSULE (FP) PO SCH ×2 (10:18→21:31)
[2018-12-26] MEDS: NICOTINE 21 MG/24 HOURS TOPICAL PATCH TD SCH (10:18)
[2018-12-26] MEDS: MELATONIN 5 MG TABLETS PO PRN (21:31)
[2018-12-26] MEDS: MONTELUKAST NA 10 MG TABLET PO SCH (21:31)
[2018-12-26] MEDS: THIAMINE HCL 100 MG TABLET (FP) PO SCH (21:31)
[2018-12-26] MEDS: QUEtiapine FUMARATE 100 MG TABLET (FP) PO SCH (21:31)
[2018-12-27] MEDS ORDERED: METHADONE HCL 10 MG TABLET ONE (06:18)
[2018-12-27] MEDS ORDERED: METHADONE HCL 40 MG DISPERSABLE TABLET ONE (06:18)
[2018-12-27] MEDS: METHADONE 80 MG, METHADONE 10 MG PO SCH (06:19)
[2018-12-27] MEDS: NICOTINE POLACRILEX 4 MG GUM BUC PRN ×6 (06:22→21:32)
[2018-12-27] MEDS: DOCUSATE SODIUM 100 MG CAPSULE (FP) PO SCH ×2 (10:23→21:32)
[2018-12-27] MEDS: NICOTINE 21 MG/24 HOURS TOPICAL PATCH TD SCH (10:23)
[2018-12-27] MEDS: PRENATAL VITAMINS W/ FOLIC ACID TABLET (FP) PO SCH (10:23)
[2018-12-27] MEDS: PANTOPRAZOLE 40 MG TABLET (FP) PO SCH (10:23)
[2018-12-27] MEDS: FAMOTIDINE 20 MG TABLET PO SCH (21:32)
[2018-12-27] MEDS: MONTELUKAST NA 10 MG TABLET PO SCH (21:32)
[2018-12-27] MEDS: QUEtiapine FUMARATE 100 MG TABLET (FP) PO SCH (21:32)
[2018-12-27] MEDS: THIAMINE HCL 100 MG TABLET (FP) PO SCH (21:32)
[2018-12-28] MEDS ORDERED: METHADONE HCL 40 MG DISPERSABLE TABLET ONE (06:07)
[2018-12-28] MEDS ORDERED: METHADONE HCL 10 MG TABLET ONE (06:07)
[2018-12-28] MEDS: METHADONE 80 MG, METHADONE 10 MG PO SCH (06:08)
[2018-12-28] MEDS: NICOTINE POLACRILEX 4 MG GUM BUC PRN ×6 (06:10→21:31)
[2018-12-28] MEDS: FAMOTIDINE 20 MG TABLET PO SCH ×2 (10:32→21:30)
[2018-12-28] MEDS: DOCUSATE SODIUM 100 MG CAPSULE (FP) PO SCH ×2 (10:32→21:29)
[2018-12-28] MEDS: PRENATAL VITAMINS W/ FOLIC ACID TABLET (FP) PO SCH (10:32)
[2018-12-28] MEDS: NICOTINE 21 MG/24 HOURS TOPICAL PATCH TD SCH (10:32)
[2018-12-28] MEDS: MONTELUKAST NA 10 MG TABLET PO SCH (21:30)
[2018-12-28] MEDS: QUEtiapine FUMARATE 100 MG TABLET (FP) PO SCH (21:30)
[2018-12-28] MEDS: THIAMINE HCL 100 MG TABLET (FP) PO SCH (21:31)
[2018-12-29] MEDS ORDERED: METHADONE HCL 40 MG DISPERSABLE TABLET ONE (02:56)
[2018-12-29] MEDS ORDERED: METHADONE HCL 10 MG TABLET ONE (02:56)
[2018-12-29] MEDS: METHADONE 80 MG, METHADONE 10 MG PO SCH (06:26)
[2018-12-29] MEDS: DOCUSATE SODIUM 100 MG CAPSULE (FP) PO SCH ×2 (09:41→21:38)
[2018-12-29] MEDS: NICOTINE 21 MG/24 HOURS TOPICAL PATCH TD SCH (09:41)
[2018-12-29] MEDS: FAMOTIDINE 20 MG TABLET PO SCH ×2 (09:41→21:38)
[2018-12-29] MEDS: PRENATAL VITAMINS W/ FOLIC ACID TABLET (FP) PO SCH (09:41)
[2018-12-29] MEDS: NICOTINE POLACRILEX 4 MG GUM BUC PRN ×6 (09:42→21:41)
[2018-12-29] MEDS: THIAMINE HCL 100 MG TABLET (FP) PO SCH (21:38)
[2018-12-29] MEDS: QUEtiapine FUMARATE 100 MG TABLET (FP) PO SCH (21:39)
[2018-12-29] MEDS: ALBUTEROL SO4 8 GM HFA INHALER IH PRN (21:40)
[2018-12-29] MEDS: MONTELUKAST NA 10 MG TABLET PO SCH (21:40)
[2018-12-30] MEDS ORDERED: METHADONE HCL 10 MG TABLET ONE (06:04)
[2018-12-30] MEDS ORDERED: METHADONE HCL 40 MG DISPERSABLE TABLET ONE (06:05)
[2018-12-30] MEDS: METHADONE 80 MG, METHADONE 10 MG PO SCH (06:06)
[2018-12-30] MEDS: NICOTINE POLACRILEX 4 MG GUM BUC PRN ×7 (06:07→22:28)
[2018-12-30] MEDS: NICOTINE 21 MG/24 HOURS TOPICAL PATCH TD SCH (10:44)
[2018-12-30] MEDS: DOCUSATE SODIUM 100 MG CAPSULE (FP) PO SCH ×2 (10:44→21:29)
[2018-12-30] MEDS: FAMOTIDINE 20 MG TABLET PO SCH ×2 (10:44→21:29)
[2018-12-30] MEDS: PRENATAL VITAMINS W/ FOLIC ACID TABLET (FP) PO SCH (10:44)
[2018-12-30] MEDS: THIAMINE HCL 100 MG TABLET (FP) PO SCH (21:29)
[2018-12-30] MEDS: MONTELUKAST NA 10 MG TABLET PO SCH (21:29)
[2018-12-30] MEDS: QUEtiapine FUMARATE 100 MG TABLET (FP) PO SCH (21:29)
[2018-12-31] MEDS ORDERED: METHADONE HCL 10 MG TABLET ONE (06:20)
[2018-12-31] MEDS ORDERED: METHADONE HCL 40 MG DISPERSABLE TABLET ONE (06:21)
[2018-12-31] MEDS: METHADONE 80 MG, METHADONE 10 MG PO SCH (06:21)
[2018-12-31] MEDS: NICOTINE POLACRILEX 4 MG GUM BUC PRN ×6 (06:25→21:28)
[2018-12-31] MEDS: PRENATAL VITAMINS W/ FOLIC ACID TABLET (FP) PO SCH (10:52)
[2018-12-31] MEDS: DOCUSATE SODIUM 100 MG CAPSULE (FP) PO SCH ×2 (10:52→21:27)
[2018-12-31] MEDS: FAMOTIDINE 20 MG TABLET PO SCH ×2 (10:52→21:27)
[2018-12-31] MEDS: NICOTINE 21 MG/24 HOURS TOPICAL PATCH TD SCH (10:53)
[2018-12-31] MEDS: THIAMINE HCL 100 MG TABLET (FP) PO SCH (21:26)
[2018-12-31] MEDS: MONTELUKAST NA 10 MG TABLET PO SCH (21:27)
[2018-12-31] MEDS: QUEtiapine FUMARATE 100 MG TABLET (FP) PO SCH (21:27)
[2018-12-31] MEDS: ALBUTEROL SO4 8 GM HFA INHALER IH PRN (21:28)
[2018-12-31] MEDS: MELATONIN 5 MG TABLETS PO PRN (21:28)
[2019-01-01] MEDS ORDERED: METHADONE HCL 10 MG TABLET ONE (05:58)
[2019-01-01] MEDS ORDERED: METHADONE HCL 40 MG DISPERSABLE TABLET ONE (05:59)
[2019-01-01] MEDS ORDERED: METHADONE HCL 10 MG TABLET PO SCH (06:00)
[2019-01-01] MEDS: METHADONE 80 MG, METHADONE 10 MG PO SCH (06:04)
[2019-01-01] MEDS: NICOTINE POLACRILEX 4 MG GUM BUC PRN ×6 (06:06→21:35)
[2019-01-01] MEDS: PRENATAL VITAMINS W/ FOLIC ACID TABLET (FP) PO SCH (10:02)
[2019-01-01] MEDS: DOCUSATE SODIUM 100 MG CAPSULE (FP) PO SCH ×2 (10:02→21:33)
[2019-01-01] MEDS: FAMOTIDINE 20 MG TABLET PO SCH ×2 (10:02→21:33)
[2019-01-01] MEDS: NICOTINE 21 MG/24 HOURS TOPICAL PATCH TD SCH (10:02)
[2019-01-01] MEDS: THIAMINE HCL 100 MG TABLET (FP) PO SCH (21:33)
[2019-01-01] MEDS: QUEtiapine FUMARATE 100 MG TABLET (FP) PO SCH (21:33)
[2019-01-01] MEDS: MONTELUKAST NA 10 MG TABLET PO SCH (21:33)
[2019-01-01] MEDS: MELATONIN 5 MG TABLETS PO PRN (21:35)
[2019-01-02] MEDS ORDERED: METHADONE HCL 10 MG TABLET ONE (05:59)
[2019-01-02] MEDS ORDERED: METHADONE HCL 40 MG DISPERSABLE TABLET ONE (05:59)
[2019-01-02] MEDS: METHADONE 80 MG, METHADONE 10 MG PO SCH (06:20)
[2019-01-02] MEDS: NICOTINE POLACRILEX 4 MG GUM BUC PRN ×7 (06:21→21:35)
[2019-01-02] MEDS: PRENATAL VITAMINS W/ FOLIC ACID TABLET (FP) PO SCH (10:07)
[2019-01-02] MEDS: NICOTINE 21 MG/24 HOURS TOPICAL PATCH TD SCH (10:07)
[2019-01-02] MEDS: DOCUSATE SODIUM 100 MG CAPSULE (FP) PO SCH ×2 (10:07→21:33)
[2019-01-02] MEDS: FAMOTIDINE 20 MG TABLET PO SCH ×2 (10:07→21:34)
[2019-01-02] MEDS: QUEtiapine FUMARATE 100 MG TABLET (FP) PO SCH (21:33)
[2019-01-02] MEDS: THIAMINE HCL 100 MG TABLET (FP) PO SCH (21:33)
[2019-01-02] MEDS: MONTELUKAST NA 10 MG TABLET PO SCH (21:33)
[2019-01-02] MEDS: MELATONIN 5 MG TABLETS PO PRN (21:35)
[2019-01-03] MEDS ORDERED: METHADONE HCL 10 MG TABLET ONE (06:18)
[2019-01-03] MEDS ORDERED: METHADONE HCL 40 MG DISPERSABLE TABLET ONE (06:18)
[2019-01-03] MEDS: METHADONE 80 MG, METHADONE 10 MG PO SCH (06:52)
[2019-01-03] MEDS: NICOTINE POLACRILEX 4 MG GUM BUC PRN ×6 (06:55→21:47)
[2019-01-03] MEDS: PRENATAL VITAMINS W/ FOLIC ACID TABLET (FP) PO SCH (09:10)
[2019-01-03] MEDS: DOCUSATE SODIUM 100 MG CAPSULE (FP) PO SCH ×2 (09:10→21:44)
[2019-01-03] MEDS: NICOTINE 21 MG/24 HOURS TOPICAL PATCH TD SCH (09:10)
[2019-01-03] MEDS: FAMOTIDINE 20 MG TABLET PO SCH ×2 (10:45→21:47)
--- NOTE | 2019-01-03 11:03 | DS ---
[facility] Rehab Discharge Summary - [facility] Rehab Discharge Summary Admission Date: 12/24/18 Discharge Date: 01/04/19 - History Present History: Alcohol dependence, Cocaine dependence, MMTP, Sedative dependence Additional Comments: Pt is a 48 y/o male admitted to rehab after completing detox on for [facility]. Pt is scheduled to discharge on 01/04/19 to follow up with [facility] [place] [facility] treatment for CD aftercare. Pt reports he has a PCP as below. Pertinent Past History: Asthma Gerd Hep C Hx Seizures(drug related-no meds) Bipolar Disorder - Discharge Physical Exam Vital Signs: Vital Signs Temperature 97.8 F 01/03/19 07:22 Pulse Rate 69 01/03/19 07:22 Respiratory Rate 18 01/03/19 07:22 Blood Pressure 110/70 01/03/19 07:22 O2 Sat by Pulse Oximetry (%) Alert o x 3 nad oob with ambulating with steady gait cardiac:s1 s2, rrr lungs:cta,kameron. abdomen:soft,+bs,nt,nd extremities/skin:no edema,full ROM; skin intact. Pertinent Admission Physical Exam Findings: Unchanged from admission to rehab - Treatment Discharge Condition: Discharge condition good Hospital Course: Rehabilitated safely and responded well CD aftercare referral accepted - Medication Discharge Medications: Ambulatory Orders Albuterol Sulfate Inhaler - [Ventolin HFA Inhaler -] 2 inh PO Q4H PRN #1 inhaler 01/03/19 Docusate Sodium [Colace -] 100 mg PO BID #60 cap 01/03/19 Famotidine [Pepcid -] 20 mg PO BID #60 tablet 01/03/19 Montelukast Na [Singulair -] 10 mg PO HS #30 tablet 01/03/19 Quetiapine Fumarate [Seroquel -] 100 mg PO HS #30 tablet 01/03/19 - Medication-Assisted Treatment (MAT) Medication-Assisted Treatment (MAT): No - Discharge Instructions Diet, activity, other medical instructions: Diet:Regular Activity: oob ad doe Other medical instructions:Follow up with Cd aftercare as recommended at [facility] Follow up with PCP Dr. Cohn @ [facility] on [address] [place] [address] for - Diagnosis (1) Asthma Status: Chronic Qualifiers: Asthma severity: mild Asthma persistence: unspecified Asthma complication type: uncomplicated Qualified Code(s): J45.909 - Unspecified asthma, uncomplicated (2) Cocaine dependence Status: Chronic Qualifiers: Substance use status: uncomplicated Qualified Code(s): F14.20 - Cocaine dependence, uncomplicated (3) GERD (gastroesophageal reflux disease) Status: Chronic Qualifiers: Esophagitis presence: without esophagitis Qualified Code(s): K21.9 - Gastro -esophageal reflux disease without esophagitis (4) History of hepatitis C virus infection Status: Chronic (5) Methadone maintenance therapy patient Status: Chronic (6) Nicotine dependence Status: Chronic Qualifiers: Nicotine product type: cigarettes Substance use status: uncomplicated Qualified Code(s): F17.210 - Nicotine dependence, cigarettes, uncomplicated (7) History of seizures Status: Suspected - Follow-up Referral Minutes to complete discharge: 25 - AMA Did Patient Leave Against Medical Advice: No Additional Comments: Pt reports he has a primary care provider, PCP Dr. Cohn on [address] [place] [address].
--- NOTE | 2019-01-03 12:02 | PN ---
[facility] Progress Note Note: Patient is scheduled for discharge tomorrow. Script for 30 days supply of Seroquel 100 mg/hs will electronically transmitted to [facility] at [address] [place], [place] [address]
[2019-01-03] MEDS: MONTELUKAST NA 10 MG TABLET PO SCH (21:44)
[2019-01-03] MEDS: MELATONIN 5 MG TABLETS PO PRN (21:45)
[2019-01-03] MEDS: QUEtiapine FUMARATE 100 MG TABLET (FP) PO SCH (21:45)
[2019-01-03] MEDS: THIAMINE HCL 100 MG TABLET (FP) PO SCH (21:45)
[2019-01-04] MEDS ORDERED: METHADONE HCL 10 MG TABLET ONE (03:19)
[2019-01-04] MEDS ORDERED: METHADONE HCL 40 MG DISPERSABLE TABLET ONE (03:19)
[2019-01-04] MEDS: METHADONE 80 MG, METHADONE 10 MG PO SCH (05:56)
[2019-01-04 06:50] VITALS: BP 101/68; PULSE 58; TEMP 97.4
[2019-01-04] MEDS: DOCUSATE SODIUM 100 MG CAPSULE (FP) PO SCH (09:34)
[2019-01-04] MEDS: NICOTINE 21 MG/24 HOURS TOPICAL PATCH TD SCH (09:34)
[2019-01-04] MEDS: PRENATAL VITAMINS W/ FOLIC ACID TABLET (FP) PO SCH (09:34)
[2019-01-04] MEDS: FAMOTIDINE 20 MG TABLET PO SCH (09:34)
--- NOTE | 2019-01-04 11:27 | PN ---
[facility] Progress Note Note: Pt was discharged this morning as [id number] D/C summary for details). Oob ambulating with steady gait. Alert o x 3. Nad/no s/h/i. Vital Signs - 24 hr 01/04/19 01/04/19 01/04/19 00:30 03:30 06:47 Temperature 97.4 F L Pulse Rate 58 L Respiratory 18 18 18 Rate Blood Pressure 101/68
--- NOTE | 2019-01-04 16:03 | DS ---
[facility] Detox Discharge Summary Admission Date: 12/24/18 - Physical Exam Results Vital Signs: Vital Signs Temperature 97.4 F L 01/04/19 06:47 Pulse Rate 58 L 01/04/19 06:47 Respiratory Rate 18 01/04/19 06:47 Blood Pressure 101/68 01/04/19 06:47 O2 Sat by Pulse Oximetry (%) - Medication Discharge Medications: Ambulatory Orders Albuterol Sulfate Inhaler - [Ventolin HFA Inhaler -] 2 inh PO Q4H PRN #1 inhaler 01/03/19 Docusate Sodium [Colace -] 100 mg PO BID #60 cap 01/03/19 Famotidine [Pepcid -] 20 mg PO BID #60 tablet 01/03/19 Montelukast Na [Singulair -] 10 mg PO HS #30 tablet 01/03/19 Quetiapine Fumarate [Seroquel -] 100 mg PO HS #30 tablet 01/03/19 - Diagnosis (1) Asthma Status: Chronic Qualifiers: Asthma severity: mild Asthma persistence: unspecified Asthma complication type: uncomplicated Qualified Code(s): J45.909 - Unspecified asthma, uncomplicated (2) Cocaine dependence Status: Chronic Qualifiers: Substance use status: uncomplicated Qualified Code(s): F14.20 - Cocaine dependence, uncomplicated (3) GERD (gastroesophageal reflux disease) Status: Chronic Qualifiers: Esophagitis presence: without esophagitis Qualified Code(s): K21.9 - Gastro -esophageal reflux disease without esophagitis (4) History of hepatitis C virus infection Status: Chronic (5) Methadone maintenance therapy patient Status: Chronic (6) Nicotine dependence Status: Chronic Qualifiers: Nicotine product type: cigarettes Substance use status: uncomplicated Qualified Code(s): F17.210 - Nicotine dependence, cigarettes, uncomplicated (7) History of seizures Status: Suspected
== END 2019-01-04 09:35 | disposition home or self-care (01) | DRG 895 ==
LOC: YASAS 13:55 → Y5N 13:57
PROVIDERS: ADMIT Neuromusculoskeletal Medicine & OMM; ATTEND Neuromusculoskeletal Medicine & OMM
PROC: HZ42ZZZ Group Counseling for Substance Abuse Treatment, Cognitive-Behavioral (ICD-10-PCS; principal; 2018-12-24)
DX: F10.20 Alcohol dependence, uncomplicated (principal); F11.20 Opioid dependence, uncomplicated; F14.20 Cocaine dependence, uncomplicated; F17.210 Nicotine dependence, cigarettes, uncomplicated; J45.909 Unspecified asthma, uncomplicated; K21.9 Gastro-esophageal reflux disease without esophagitis; Z91.012 Allergy to eggs; Z91.013 Allergy to seafood; Z88.6 Allergy status to analgesic agent; Z86.69 Personal history of other diseases of the nervous system and sense organs; Z86.19 Personal history of other infectious and parasitic diseases